=== PATIENT | female | born 1935 | race Caucasian/White ===

== ENCOUNTER 2020-05-08 06:21 | Inpatient (IN) | payer MEDICARE, OTHER ==
[2020-05-08] MEDS ORDERED: SODIUM CHLORIDE 0.9% 1,000 ML IV STA ×2 (06:42→07:06)
[2020-05-08] MEDS ORDERED: ONDANSETRON 4 MG/2 ML VIAL IVP STA (06:42)
--- NOTE | 2020-05-08 06:45 | ED Physician Documentation ---
PD HPI NVD - Stated complaint Stated Complaint: DEHYDRATION - Chief complaint Chief Complaint: Abd Pain - History obtained from History obtained from: Patient, EMS - History of Present Illness Timing - onset: How many weeks ago (She states she has had several weeks of poor oral intake due to easy satiety that has worsened in the last week. She claims only small bites of food and just little bits of fluid in her stomach feels full. No nausea or vomiting.Typically with loose stool secondary to carcinoid tumor. More firmer.) Timing - duration: Weeks Timing - details: Gradual onset, Still present Associated symptoms: Loss of appetite (due to easy fullness with PO intake.). No: Fever, Abdominal pain, Chest pain, Hematemesis Contributing factors: No: Sick contact, Bad food, Travel Improved by: No: BM Worsened by: Eating Similar symptoms before: No diagnosis (She did see her provider at [facility] a couple of weeks ago with the symptoms and their plan was to get a CT of the abdomen outpatient. She is having worse symptoms of fullness and easy satiety and now feeling dehydrated) Recently seen: Clinic ([facility] about 1-1/2 weeks ago for her chronic carcinoid tumor.) Review of Systems Constitutional: denies: Fever, Chills Nose: denies: Rhinorrhea / runny nose, Congestion Throat: denies: Sore throat Cardiac: denies: Chest pain / pressure, Pedal edema Respiratory: denies: Cough GI: denies: Abdominal Pain, Nausea (not nausea per se, but just easy satiety and feeling bloated.), Vomiting, Diarrhea : denies: Dysuria, Frequency Neurologic: reports: Generalized weakness, Near syncope (felt lightheaded with activity the past couple of days.). 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 HEENT: Tonsil/Adenoidectomy - Present Medications Home Medications: Ambulatory Orders Medication Instructions Recorded Confirmed Latanoprost 0.005% Ophth Drops 1 drops OPTH QPM 03/06/13 03/06/13 [Xalatan] Lisinopril [Prinivil] 5 mg PO BID 03/06/13 03/06/13 Timolol 0.5% Ophth Drops [Timoptic] 1 drops OPTH DAILY 03/06/13 03/06/13 - Allergies Allergies/Adverse Reactions: Allergies Allergy/AdvReac Type Severity Reaction Status Date / Time azithromycin [From Zithromax] Allergy Intermediate Emesis Verified 05/08/20 06:34 Sulfa (Sulfonamide AdvReac Severe Hives Verified 05/08/20 06:34 Antibiotics) - Social History Does the pt smoke?: No Smoking Status: Never smoker Does the pt drink ETOH?: No Does the pt have substance abuse?: No - Immunizations Immunizations are current?: Yes PD ED PE NORMAL - Vitals Vital signs reviewed: Yes - General General: Alert and oriented X 3, No acute distress. No: Well developed/nourished (frail and thin) - HEENT HEENT: Pharynx benign. No: Moist mucous membranes - Neck Neck: Supple, no meningeal sign, No adenopathy - Cardiac Cardiac: RRR, Other (1/6 systolic murmur left chest without radiation.) - Respiratory Respiratory: No respiratory distress, Clear bilaterally - Abdomen Abdomen: Soft, No organomegaly. No: Normal bowel sounds (increased bowel sounds generally. Mild distension without focal tenderness. ) - Female Female : Deferred - Rectal Rectal: Deferred - Back Back: No CVA TTP - Derm Derm: Normal color, Warm and dry - Extremities Extremities: No tenderness to palpate, Normal ROM s pain, No edema, No calf tend erness / cord - Neuro Neuro: Alert and oriented X 3, No motor deficit, Normal speech Results - Vitals Vitals: Vital Signs - 24 hr 05/08/20 05/08/20 06:31 06:56 Temperature 36.1 C L Heart Rate 59 L 71 Respiratory 17 16 Rate Blood Pressure 198/87 H 199/77 H O2 Saturation 98 99 Oxygen O2 Source Room air - Labs Labs: Laboratory Tests 05/08/20 05/08/20 06:40 06:40 WBC 15.0 H RBC 4.58 Hgb 12.3 Hct 38.1 MCV 83.2 MCH 26.9 L MCHC 32.3 RDW 14.0 Plt Count 204 MPV 11.7 H Neut # (Auto) 13.6 H Lymph # (Auto) 0.2 L [place] # (Auto) 1.1 H Eos # (Auto) 0.0 Baso # (Auto) 0.0 Absolute Nucleated RBC 0.00 Nucleated RBC % 0.0 Sodium 131 L Potassium 2.1 L* Chloride 80 L* Carbon Dioxide 39 H* Anion Gap 12.0 BUN 18 Creatinine 0.7 Estimated GFR (MDRD) 80 L Glucose 172 H Calcium 7.8 L Phosphorus 2.2 L Magnesium 1.8 Total Bilirubin 1.0 AST 39 ALT 28 Alkaline Phosphatase 120 Total Protein 6.2 L Albumin 3.0 L Globulin 3.2 Albumin/Globulin Ratio 0.9 L Lipase 22 PD MEDICAL DECISION MAKING - ED course Complexity details: considered differential (Easy satiety and poor oral intake subsequently with feeling of dehydration and lightheadedness and no weakness. We will give IV fluids and check electrolytes and blood count as well as thyroid. History of carcinoid tumor so can get a CT scan to ensure no signs of obstruction pattern or gastric out), d/w patient ED course: Care is given over to Dr. Cohen at change of shift who will follow-up on the care and lab results and CT scan. Departure - Departure Clinical Impression: Dehydration, Early satiety, Decreased oral intake, Electrolyte and fluid disorder
[2020-05-08 06:51] LABS: BASOPHILS % (AUTO) 0.2 %; HGB - HEMOGLOBIN 12.3 g/dL (12.0-16.0); LYMPHOCYTES # (AUTO) 0.2 10^3/uL (1.5-3.5); LYMPHOCYTES % (AUTO) 1.3 %; MEAN CORPUSCULAR HEMOGLOBIN 26.9 pg (27.0-31.0); MEAN CORPUSCULAR HGB CONC 32.3 g/dL (32.0-36.0); MEAN CORPUSCULAR VOLUME 83.2 fL (81.0-99.0); MEAN PLATELET VOLUME 11.7 fL (7.9-10.8); MONOCYTES # (AUTO) 1.1 10^3/uL (0.0-1.0); MONOCYTES % (AUTO) 7.1 %; NEUTROPHILS # (AUTO) 13.6 10^3/uL (1.5-6.6); NEUTROPHILS % (AUTO) 90.7 %; PLT - PLATELET COUNT 204 10^3/uL (130-450); RED BLOOD COUNT 4.58 10^6/uL (4.20-5.40)
[2020-05-08 07:02] LABS: ALBUMIN/GLOBULIN RATIO 0.9 (1.0-2.2); CALCIUM 7.8 mg/dL (8.5-10.3); CREATININE 0.7 mg/dL (0.4-1.0); MAGNESIUM 1.8 mg/dL (1.7-2.8); PHOSPHORUS 2.2 mg/dL (2.5-4.6); TOTAL PROTEIN 6.2 g/dL (6.7-8.2)
[2020-05-08] MEDS ORDERED: IOVERSOL 320 50 ML VIAL ONE (07:06)
[2020-05-08] MEDS ORDERED: POTASSIUM CHLOR 10 MEQ/100 ML 10 MEQ/100 ML BAG IV STA ×2 (07:06)
--- NOTE | 2020-05-08 07:53 | ED Physician Documentation ---
ED Addendum - Addendum Addendum: 05/08/20 07:[address] Che, briefly this is an 85-year-old woman with history of carcinoid who gets injections of long-acting octreotide monthly for same. She has chronic diarrhea and the pattern has not changed. More recently though she has a sensation of early satiety and just being full. It is not painful, no nausea, she just does not want to eat. She was seen and examined at bedside. She appears comfortable. She is quite thin. Labs notable for significant electrolyte abnormalities including hypokalemia, hypochloremia. CT pending. CT oral ordered with oral contrast to look for gastric outlet obstruction. She drank about 100 mL of the contrast but did not tolerate anymore. 05/08/20 08:43 CT reviewed with radiology, she has mesenteric mass and multifocal metastatic disease, possibly an osseous metastasis in the L1 vertebral body. Radiologist felt that this was consistent with metastatic carcinoid. I discussed the case by phone with her oncologist, Dr. Choco Pascual at the [facility] He understands the need to have extensive goals of care conversations with her, the patient vacillates whether she would want more aggressive treatment for the cancer itself. He agreed that she should be admitted here for her significant electrolyte abnormalities, and they will have someone from their team reach out to her after discharge and arrange for GI evaluation for potential EGD, potential stenting. 05/08/20 08:[address] Amado for observation. In the interim she did get a liter of saline wide open and then a maintenance rate as well as 2 potassium riders. Diagnoses: 1. Contraction alkalosis 2. Hypokalemia 3. Dehydration 4. Metastatic carcinoid 5. Probable gastric outlet obstruction Disposition: Place in observation; condition: Fair
[2020-05-08 07:58] LABS: BILIRUBIN,URINE NEGATIVE (NEGATIVE); GLUCOSE, URINE (UA) NEGATIVE (NEGATIVE); KETONES,URINE (UA) 15 mg/dL (NEGATIVE); LEUKOCYTE ESTERASE, URINE NEGATIVE (NEGATIVE); NITRITE,URINE NEGATIVE (NEGATIVE); OCCULT BLOOD,URINE SMALL (NEGATIVE); PH,URINE 6.5 PH (5.0-7.5); PROTEIN,URINE 100 mg/dL (NEGATIVE); UROBILINOGEN,URINE 0.2 (NORMAL) E.U./dL (NORMAL)
[2020-05-08 08:00] LABS: CLARITY,URINE CLEAR (CLEAR)
[2020-05-08 08:12] LABS: BACTERIA,URINE Few /HPF (None Seen); RBC,URINE 0-5 /HPF (0-5); SQUAMOUS EPITHELIAL CELL,UR FEW Squamous (<= Few)
--- NOTE | 2020-05-08 08:36 | CT Report ---
PROCEDURE: Abdomen/Pelvis WO INDICATIONS: UPPER ABD FULLNESS, EASY SATIETY, NAUSEA TECHNIQUE: Noncontrast 5 mm thick sections acquired from the diaphragms to the symphysis. 5 mm coronal and sagi ttal reformats were then performed. For radiation dose reduction, the following was used: automated exposure control, adjustment of mA and/or kV according to patient size. COMPARISON: None. FINDINGS: Image quality: Excellent. ABDOMEN: Lung bases: Small bilateral pleural effusions with atelectasis and basilar airspace opacities. Solid organs: There are numerous hypodense liver masses (at least 20), highly suspicious for metastat ic disease. The largest in the inferior right hepatic lobe measures approximately 7.4 cm. Normal size of the spleen. Left adrenal gland mass measuring approximately 2 cm (evaluation limited by the lack of IV contrast. There may be a right adrenal gland masses well, versus adrenal form thickening. Peritoneum and bowel: Partially calcified mesenteric mass measuring approximately 4.7 cm (series 3 im age 38). Extensive mesenteric lymphadenopathy. Numerous small bowel loops are mildly dilated represen ting probable partial obstruction. Small volume fluid throughout the abdomen and pelvis. Sigmoid dive rticulosis without findings of diverticulitis. Nodes and vessels: Extensive mesenteric and retroperitoneal lymphadenopathy. PELVIS: Genitourinary: Bladder wall thickness is normal. The uterus and ovaries appear surgically absent. Miscellaneous: No threshold enlarged pelvic or inguinal lymph node. No inguinal hernia. Femoral bob ry atherosclerosis. Bones: Sclerotic lesion in the inferior L1 vertebral body, nonspecific but potentially representing m etastatic disease. Vertebral body heights maintained. Diffuse demineralization of the vertebral darwin s. IMPRESSION: Partially calcified central mesenteric mass which would be consistent with the provided history of ca rcinoid. Multifocal metastatic disease, most notably with extensive mesenteric and retroperitoneal lymphadenop athy along with numerous hypodense liver masses. Possible osseous metastasis in the inferior L1 vertebral body. Findings were discussed with Dr. Cohen at 8:30 AM on 05/08/2020. Reviewed by: Frankie Verduzco MD on 05/08/2020 8:35 AM PDT Approved by: Frankie Verduzco MD on 05/08/2020 8:35 AM PDT Station ID: [id number]
[2020-05-08] MEDS ORDERED: POTASSIUM CHLORIDE 20 MEQ TABLET PO STA (08:54)
--- NOTE | 2020-05-08 08:55 | HISTORY & PHYSICAL EXAMINATION ---
Chief Complaint - Chief Complaint Chief Complaint: Lack of sleep and poor appetite. History of Present Illness - Admitted From Admitted From:: Home - History Obtained From Records Reviewed: Yes History obtained from: Patient, ER Physician, EMR - History of Present Illness HPI Comment/Other: This is a very pleasant 85-year-old female with a past medical history significant for metastatic carcinoid tumor, hypertension, glaucoma who presents today complaining of lack of sleep and poor appetite over the past few days. She states she was diagnosed with carcinoid tumor about 5 years ago and has been on monthly octreotide since then. She saw her [facility]ologist [facility] due to her lack of appetite and sleep. She received her monthly dose of octreotide yesterday. She states they were going to work-up her symptoms with a CT and a likely referral to GI. She states overnight her symptoms progressed and so she sought medical attention today. She states that the past few days she has not slept well and she has early satiety after just a few bites. She states she ate half a bowl of soup yesterday and she became quite full. She reports occasional nausea but no vomiting. She denies any abdominal pain. She states she normally has diarrhea from a carcinoid tumor but she has had intermittent constipation over the past few days. Her last bowel movement was yesterday. She is passing gas. She reports no abdominal distention. She reports no fevers, chills, chest pain, dyspnea. She does report feeling thirsty and she feels like she is dehydrated. She also has early satiety from drinking liquids. She reports no dizziness or lightheadedness. In the emergency department, she is found to be afebrile with temperature of 36.1 C. Her heart rate was 59. Her blood pressure was 198/87. She was not tachypneic and saturating well on room air. Labs were significant for a white count of 15 with a left shift. Her sodium was 131, potassium 2.1, chloride 80, bicarbonate 39. He underwent a CT of the abdomen pelvis with oral contrast she reported an allergy to IV contrast. The CT showed the metastatic carcinoid tumor. These findings were discussed with her oncologist by the emergency department physician who recommended admission to optimize her electrolytes and that they will follow-up with her in clinic and likely refer her to GI for possible gastric outlet obstruction as she may need stenting. Given the above findings, medicine was consulted for admission. I did discuss goals of care the patient and she would like to be a DNR. 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 She has no siblings. Living arrangement: At home Living Situation: Alone Social History Notes: She lives at home alone. She is a non-smoker and has never smoked. She denies any alcohol use. [place] the [place] years after moving from [place], [place]. - POLST Patient has POLST: No Meds/Allgy - Home Medications Home Medications: Ambulatory Orders Medication Instructions Recorded Confirmed Latanoprost 0.005% Ophth Drops 1 drops OPTH QPM 03/06/13 05/08/20 [Xalatan] Lisinopril [Prinivil] 5 mg PO DAILY 03/06/13 05/08/20 Timolol 0.5% Ophth Drops [Timoptic] 1 drops OPTH BID 03/06/13 05/08/20 Cholecalciferol (Vitamin D3) 2,000 unit PO DAILY 05/08/20 05/08/20 [Vitamin D3] Metoprolol Tartrate 25 mg ORAL BID 05/08/20 05/08/20 Octreotide Acetate,Mi-Spheres 30 mg IM ONCE 05/08/20 05/08/20 [Sandostatin [place]] - Allergies Allergies/Adverse Reactions: Allergies Allergy/AdvReac Type Severity Reaction Status Date / Time azithromycin [From Zithromax] Allergy Intermediate Emesis Verified 05/08/20 07:20 Sulfa (Sulfonamide AdvReac Severe Hives Verified 05/08/20 07:20 Antibiotics) Review of Systems - Constitutional Constitutional: reports: Fatigue, Poor appetite, Weight loss. denies: Fever, Chills, Weakness - Eyes Eyes: denies: Blurred vision - Ears, Nose & Throat Ears, Nose & Throat: denies: Nasal discharge, Nasal congestion, Sore throat - Cardiovascular Cariovascular: denies: Chest pain, Edema, Lightheadedness, Exertional dyspnea, Decr. exercise tolerance - Respiratory Respiratory: denies: Cough, SOB at rest, SOB with exertion - Gastrointestinal Gastrointestinal: reports: Nausea, Poor appetite. denies: Abdominal pain, Abdominal distention, Constipation, Diarrhea, Vomiting, Bloating - Genitourinary Genitourinary: denies: Dysuria, Frequency, Urgency, Hematuria - Musculoskeletal Musculoskeletal: denies: Muscle pain, Muscle aches, Limited range of motion, Muscle weakness - Integumentary Integumentary: denies: Rash - Neurological Neurological: denies: General weakness, Focal weakness, Dizziness, Numbness, Memory problems - All Other Systems All Other Systems: reports: Reviewed and negative Prior Level of Functionality: She is independent with her ADLs. Exam - Vital Signs Reviewed Vital Signs: Yes Vital Signs: Vital Signs x48h Temp Pulse Resp BP Pulse Ox 05/08/20 08:34 70 13 198/85 H 98 05/08/20 06:56 71 16 199/77 H 99 05/08/20 06:31 36.1 C L 59 L 17 198/87 H 98 - Physical Exam General Appearance: positive: Alert, Other (She appears ill and frail.) Eyes Bilateral: positive: Normal inspection, Conjunctivae nml ENT: positive: ENT inspection nml, Dry mucous membranes. negative: No signs of dehydration Neck: positive: Nml inspection Respiratory: positive: No respiratory distress. negative: Wheezes, Rales Cardiovascular: positive: Regular rate & rhythm, No murmur. negative: Tach ycardia, Bradycardia, Systolic murmur Abdomen: positive: Non-tender, Nml bowel sounds, No distention. negative: Tenderness, Guarding, Rebound Skin: positive: Warm, Dry Extremities: positive: Full ROM, No pedal edema Neurologic/Psychiatric: positive: Oriented x3, Motor nml. negative: Disoriented to person, Disoriented to place, Disoriented to time Conclusion/Plan - Problem List (1) Metabolic alkalosis Conclusion/Plan: This is likely multifactorial and exacerbated by the hypokalemia as well. She reports no diarrhea or vomiting so do not suspect gastric losses. Her bicarbonate is elevated at 39 and her chloride is 80. Venous blood gas revealed a pH of 7.498. Suspect she will be responsive to saline and so we will continue her on IV saline at this time. We will repeat a BMP this afternoon to ensure her bicarbonate is decreasing. (2) Hypokalemia Conclusion/Plan: Her potassium is quite low at 2.1. This is likely exacerbated by the metabolic alkalosis. We will replace this intravenously and orally and recheck again in the afternoon. She will likely need potassium supplementation on discharge. We will monitor her on telemetry. (3) Metastatic carcinoid tumor Conclusion/Plan: [facility] and this is confirmed by CT of the abdomen pelvis today. She did receive her monthly dose of octreotide yesterday. She will be following up with [facility] on discharge once her electrolytes are optimized. Place her on a liquid diet as tolerated. (4) Hyponatremia Conclusion/Plan: This is likely hypovolemic hyponatremia. Her sodium is decreased at 131. We will continue her on IV saline and recheck her sodium this afternoon and in the morning. (5) Early satiety Conclusion/Plan: This is likely secondary to her metastatic carcinoid tumor which may potentially have gastric outlet obstruction. We will place her on a liquid diet with small frequent meals as tolerated. She will be following up with the [facility] on discharge and referral will be made to gastroenterology for evaluation as she may benefit from endoscopy and possible stent placement if this is truly believed to be secondary to gastric outlet obstruction. Zofran IV as needed for nausea. (6) Hypertension Conclusion/Plan: She reports a history of labile blood pressures stating that she was hypotensive and so 1 of her antihypertensives was discontinued but then it was resumed a week later she became quite hypertensive again. She currently has systolics in the 190s but she is asymptomatic. We will resume her home metoprolol and lisinopril at this time. We will up titrate these as need be and consider adding a third antihypertensive if necessary. - Lab Results Lab results reviewed: Yes Fish Bones: 05/08/20 09:15 05/08/20 09:15 - Diagnostic Imaging Results Diagnostic Imaging Results: positive: Final report reviewed Core Measures - Anticipated LOS I expect patient to be DC'd or transferred within 96 hours.: Yes - Issues Hospital Issues and Management Plan: 85-year-old female with metastatic carcinoid presents with early satiety found to have severe electrolyte derangements. We will place her in observation for metabolic alkalosis and hypokalemia. We will treat her with IV fluids and potassium replacement. - DVT/VTE - Prophylaxis VTE/DVT Device ordered at admit?: Yes VTE/DVT Prophylaxis med ordered at admit?: Yes
[2020-05-08 09:20] LABS: BASOPHILS % (AUTO) 0.1 %; HGB - HEMOGLOBIN 11.1 g/dL (12.0-16.0); LYMPHOCYTES # (AUTO) 0.2 10^3/uL (1.5-3.5); LYMPHOCYTES % (AUTO) 1.4 %; MEAN CORPUSCULAR HEMOGLOBIN 27.3 pg (27.0-31.0); MEAN CORPUSCULAR HGB CONC 31.9 g/dL (32.0-36.0); MEAN CORPUSCULAR VOLUME 85.5 fL (81.0-99.0); MEAN PLATELET VOLUME 11.9 fL (7.9-10.8); MONOCYTES # (AUTO) 1.1 10^3/uL (0.0-1.0); MONOCYTES % (AUTO) 7.1 %; NEUTROPHILS # (AUTO) 14.1 10^3/uL (1.5-6.6); NEUTROPHILS % (AUTO) 90.8 %; PLT - PLATELET COUNT 186 10^3/uL (130-450); RED BLOOD COUNT 4.07 10^6/uL (4.20-5.40); RED CELL DISTRIBUTION WIDTH 13.9 % (12.0-15.0); WHITE BLOOD COUNT 15.5 x10^3/uL (4.8-10.8)
[2020-05-08 09:22] LABS: VBG BASE EXCESS 11.9 mmol/L (-2 - +2); VBG PCO2 48.3 mmHg (41-51); VBG PH 7.498 (7.31-7.41); VBG TOTAL CO2 38.1 mmol/L (24-29)
[2020-05-08 09:33] LABS: CALCIUM 7.1 mg/dL (8.5-10.3); CREATININE 0.6 mg/dL (0.4-1.0)
[2020-05-08] MEDS ORDERED: lisinopriL 5 MG TABLET PO SCH (10:00)
[2020-05-08] MEDS: SODIUM CHLORIDE 0.9% 1,000 ML IV SCH ×2 (10:30→21:14)
[2020-05-08] MEDS ORDERED: CALCIUM GLUCONATE 1,000 MG in SODIUM CHLORIDE 0.9% 50 ML IV ONE (11:38)
[2020-05-08] MEDS: HEPARIN 5,000 UNIT/ML VIAL SUBQ SCH ×2 (13:06→21:06)
[2020-05-08] MEDS: SODIUM CHLORIDE FLUSH 0.9% 10 ML SYRINGE IVP SCH ×2 (13:12→17:42)
[2020-05-08] MEDS: METOPROLOL TARTRATE 25 MG TABLET PO SCH ×3 (13:14→21:03)
[2020-05-08] MEDS: POTASSIUM CHLOR 10 MEQ/100 ML 10 MEQ/100 ML BAG IV SCH ×6 (13:31→22:57)
--- NOTE | 2020-05-08 15:53 | PHARMACY PROGRESS NOTE ---
- Best Possible Medication History Admit Date and Time: 05/08/20 0851 Processed by: Pharmacy Medication History completed: Yes Patient Interview: Completed Secondary Source(s): Pharmacy records, Insurance records ([employer] INTERVIEWED BY TIN POT OPERATOR. PATIENT ABLE TO CONFIRM HOME MEDICATIONS. NURSING ALSO INVOLVED IN MED REC) As the person ultimately responsible for medication therapy, providers are able to order a medication from an existing home medication list in [facility] via the "Reconcile Routine" prior to Confirmation of that medication by wan support specialist. Such practice is discouraged except when the physician, in their clinical judgment, deems that a medical need exists for a medication without regard to previous use.
[2020-05-08] MEDS: hydrALAZINE INJ 20 MG/ML VIAL IVP PRN (17:21)
[2020-05-08] MEDS: ONDANSETRON 4 MG/2 ML VIAL IVP PRN (18:10)
[2020-05-08 18:13] LABS: CALCIUM 7.8 mg/dL (8.5-10.3); CREATININE 0.6 mg/dL (0.4-1.0)
[2020-05-08] MEDS ORDERED: CARBOXYMETHYLCELLULOSE OPHTH DROPS EACHEYE PRN (18:16)
[2020-05-08] MEDS ORDERED: POTASSIUM CHLORIDE 20 MEQ/15 ML UDC PO SCH (19:00)
[2020-05-08] MEDS ORDERED: MORPHINE 2 MG/ML CARPUJECT IVP PRN (19:33)
[2020-05-09] MEDS: hydrALAZINE INJ 20 MG/ML VIAL IVP PRN ×2 (00:18→05:54)
[2020-05-09] MEDS: ACETAMINOPHEN 325 MG TABLET PO PRN ×3 (01:47→21:12)
[2020-05-09] MEDS: SODIUM CHLORIDE FLUSH 0.9% 10 ML SYRINGE IVP SCH ×3 (03:05→17:52)
[2020-05-09] MEDS: PROCHLORPERAZINE 10 MG/2 ML VIAL IVP PRN (03:48)
[2020-05-09] MEDS: SODIUM CHLORIDE 0.9% 1,000 ML IV SCH (03:48)
[2020-05-09 05:47] LABS: BASOPHILS % (AUTO) 0.2 %; HGB - HEMOGLOBIN 12.1 g/dL (12.0-16.0); LYMPHOCYTES # (AUTO) 0.2 10^3/uL (1.5-3.5); MEAN CORPUSCULAR HEMOGLOBIN 26.8 pg (27.0-31.0); MEAN CORPUSCULAR VOLUME 83.8 fL (81.0-99.0); MEAN PLATELET VOLUME 12.4 fL (7.9-10.8); MONOCYTES # (AUTO) 1.1 10^3/uL (0.0-1.0); MONOCYTES % (AUTO) 6.5 %; NEUTROPHILS # (AUTO) 15.5 10^3/uL (1.5-6.6); NEUTROPHILS % (AUTO) 91.6 %; PLT - PLATELET COUNT 192 10^3/uL (130-450); RED BLOOD COUNT 4.51 10^6/uL (4.20-5.40); RED CELL DISTRIBUTION WIDTH 14.3 % (12.0-15.0); WHITE BLOOD COUNT 16.9 x10^3/uL (4.8-10.8)
[2020-05-09 05:58] LABS: CREATININE 0.7 mg/dL (0.4-1.0); MAGNESIUM 1.7 mg/dL (1.7-2.8)
[2020-05-09] MEDS: PANTOPRAZOLE 40 MG TABLET PO SCH (06:01)
[2020-05-09] MEDS ORDERED: POTASSIUM PHOSPHATE 15 MMOL in SODIUM CHLORIDE 0.9% 250 ML IV ONE (07:27)
[2020-05-09] MEDS ORDERED: POTASSIUM CHLORIDE 20 MEQ/15 ML UDC PO SCH (08:00)
--- NOTE | 2020-05-09 08:35 | XRAY Report ---
PROCEDURE: Chest 1 View X-Ray INDICATIONS: Cough. Leukocytosis. TECHNIQUE: One view of the chest was acquired. COMPARISON: CT abdomen and pelvis dated 05/08/2020 FINDINGS: Surgical changes and devices: None. Lungs and pleura: Small bilateral pleural effusions and minimal bibasilar atelectasis. Lungs are sona r. Mediastinum: Mediastinal contours appear normal. Heart size is normal. Small hiatal hernia. Bones and chest wall: No suspicious bony lesions. Multiple nonhealed right rib fractures, involving the right fourth, fifth, and sixth posterior lateral ribs. These are likely subacute. Overlying soft tissues appear unremarkable. IMPRESSION: 1. Small bilateral pleural effusions and minimal bibasilar atelectasis. 2. 3 contiguous right rib fractures are likely subacute. 3. Small hiatal hernia. Reviewed by: Thompson Mckinney MD on 05/09/2020 8:34 AM PDT Approved by: Thompson Mckinney MD on 05/09/2020 8:34 AM PDT Station ID: [id number]
[2020-05-09] MEDS: DORZOLAMIDE/TIMOLOL OPHTH DROPS EACHEYE SCH ×2 (08:37→21:15)
[2020-05-09] MEDS: lisinopriL 5 MG TABLET PO SCH (08:40)
[2020-05-09] MEDS: METOPROLOL TARTRATE 25 MG TABLET PO SCH ×2 (08:40→21:12)
[2020-05-09] MEDS: amLODIPine 5 MG TABLET PO SCH (08:40)
[2020-05-09] MEDS: HEPARIN 5,000 UNIT/ML VIAL SUBQ SCH ×2 (08:41→21:13)
[2020-05-09 12:47] LABS: HEMOGLOBIN A1c% 6.8 % (4.27-6.07)
--- NOTE | 2020-05-09 13:22 | PROVIDER PROGRESS NOTE ---
Subjective - Prog Note Date Prog Note Date: 05/09/20 - Subjective Subjective: She reports feeling quite tired today but that she was able to finally get a bit of sleep. She feels very weak and fatigued overall. She also feels dizzy and lightheaded today. She reports a little bit of diarrhea today. States abdominal pain is controlled. She is tolerating a clear liquid diet but does have some nausea. She does not want to advance her diet. Current Medications - Current Medications Current Medications: Active Medications Acetaminophen (Tylenol) 650 mg PO Q4HR PRN PRN Reason: Pain 1 to 4 Last Admin: 05/09/20 06:02 Dose: 650 mg Documented by: Amlodipine Besylate (Norvasc) 5 mg PO DAILY [facility] Last Admin: 05/09/20 08:40 Dose: 5 mg Documented by: Carboxymethylcellulose (Refresh 1% Ophth Drops) 1 drops EACHEYE PRN PRN PRN Reason: Dry Eye Dorzolamide/Timolol (Cosopt) 1 drops EACHEYE BID [facility] Last Admin: 05/09/20 08:37 Dose: 1 drops Documented by: Heparin Sodium (Porcine) () 5,000 unit SUBQ BID [facility] Last Admin: 05/09/20 08:41 Dose: 5,000 unit Documented by: Hydralazine HCl (Apresoline Inj) 10 mg IVP Q4HR PRN PRN Reason: NEEDED PER PROVIDER ORDERS Last Admin: 05/09/20 05:54 Dose: 10 mg Documented by: Latanoprost (Xalatan Ophth Drops) 1 drops EACHEYE QPM [facility] Lisinopril (Zestril) 10 mg PO DAILY [facility] Last Admin: 05/09/20 08:40 Dose: 10 mg Documented by: Metoprolol Tartrate (Lopressor) 25 mg PO BID [facility] Last Admin: 05/09/20 08:40 Dose: 25 mg Documented by: Morphine Sulfate (Morphine (Carpuject)) 2 mg IVP Q2HR PRN PRN Reason: PAIN Ondansetron HCl (Zofran Inj) 4 mg IVP Q6HR PRN PRN Reason: Nausea / Vomiting Last Admin: 05/08/20 18:10 Dose: 4 mg Documented by: Pantoprazole Sodium (Protonix) 40 mg PO QDAC [facility] Last Admin: 09/03/20 06:01 Dose: 40 mg Documented by: Potassium Chloride () 20 meq PO DAILYWM [facility] Last Admin: 05/09/20 08:41 Dose: 20 meq Documented by: Prochlorperazine Edisylate (Compazine Inj) 10 mg IVP Q6HR PRN PRN Reason: Nausea / Vomiting Last Admin: 05/09/20 03:48 Dose: 10 mg Documented by: Sodium Chloride (Normal Saline Flush 0.9%) 10 ml IVP PRN PRN PRN Reason: NEEDED PER PROVIDER ORDERS Sodium Chloride (Normal Saline Flush 0.9%) 10 ml IVP 0100,0900,1700 [facility] Last Admin: 05/09/20 08:40 Dose: Not Given Documented by: Latanoprost 0.005% Ophth Drops [Xalatan] 1 drops OPTH QPM 03/06/13 Lisinopril [Prinivil] 5 mg PO DAILY 03/06/13 Cholecalciferol (Vitamin D3) [Vitamin D3] 2,000 unit PO DAILY 05/08/20 Dorzolamide HCl/Timolol Maleat [Dorzolamide-Timolol Eye Drops] 1 drops EACHEYE BID 05/08/20 Ibuprofen [Ibu-200] 200 mg PO Q6H PRN 05/08/20 Loperamide [Imodium] 2 mg PO PRN PRN 05/08/20 Metoprolol Tartrate 25 mg ORAL BID 05/08/20 Octreotide Acetate,Mi-Spheres [Sandostatin Lar Depot] 30 mg IM ONCE 05/08/20 Objective - Vital Signs/Intake & Output Reviewed Vital Signs: Yes Vital Signs: Vital Signs x48h Temp Pulse Pulse Resp BP BP Pulse Ox 05/09/20 10:38 37 C 78 16 95 05/09/20 07:40 37 C 80 16 167/69 H 95 05/09/20 06:57 37.0 C 80 16 167/68 H 93 05/09/20 06:45 80 163/69 H 05/09/20 06:30 80 163/70 H 05/09/20 06:24 163/70 H 05/09/20 06:15 84 157/67 H 05/09/20 06:10 80 161/69 H 05/09/20 06:05 81 170/65 H 05/09/20 06:00 36.9 C 75 187/69 H 05/09/20 05:54 189/76 H Intake & Output: Intake & Output 05/06/20 05/07/20 05/08/20 05/09/20 23:59 23:59 23:59 23:59 Intake Total 4160 1471 Output Total 585 325 Balance 3575 1146 - Objective General Appearance: positive: Alert, Lethargic, Other (Appears quite fatigued.) Eyes Bilateral: positive: Normal inspection, Conjunctivae nml ENT: positive: ENT inspection nml, Dry mucous membranes. negative: No signs of dehydration Neck: positive: Nml inspection Respiratory: positive: No respiratory distress, Breath sounds nml. negative: Wheezes, Rales, Rhonchi Cardiovascular: positive: Regular rate & rhythm, Systolic murmur. negative: Tachycardia, Bradycardia Abdomen: positive: Nml bowel sounds, Tenderness (Mild epigastric tenderness.). negative: Guarding, Rebound Skin: positive: Warm, Dry Extremities: positive: Full ROM, Pedal edema (+1 pitting edema in her bilateral feet.) Neurologic/Psychiatric: positive: Oriented x3, Motor nml. negative: Disoriented to person, Disoriented to place, Disoriented to time - Lab Results Fish Bones: 05/09/20 05:26 05/09/20 05:26 Other Labs: Lab Results x24hrs 05/09/20 05/09/20 05/08/20 Range/Units 05:26 05:26 17:55 WBC 16.9 H (4.8-10.8) x10^3/uL RBC 4.51 (4.20-5.40) 10^6/uL Hgb 12.1 (12.0-16.0) g/dL Hct 37.8 (37.0-47.0) % MCV 83.8 (81.0-99.0) fL MCH 26.8 L (27.0-31.0) pg MCHC 32.0 (32.0-36.0) g/dL RDW 14.3 (12.0-15.0) % Plt Count 192 (130-450) 10^3/uL MPV 12.4 H (7.9-10.8) fL Neut # (Auto) 15.5 H (1.5-6.6) 10^3/uL Lymph # (Auto) 0.2 L (1.5-3.5) 10^3/uL [place] # (Auto) 1.1 H (0.0-1.0) 10^3/uL Eos # (Auto) 0.0 (0.0-0.7) 10^3/uL Baso # (Auto) 0.0 (0.0-0.1) 10^3/uL Absolute Nucleated RBC 0.00 x10^3/uL Nucleated RBC % 0.0 /100WBC Sodium 129 L 130 L (135-145) mmol/L Potassium 3.1 L 2.2 L* (3.5-5.0) mmol/L Chloride 88 L 81 L (101-111) mmol/L Carbon Dioxide 29 33 H (21-32) mmol/L Anion Gap 12.0 16.0 H (6-13) BUN 22 H 14 (6-20) mg/dL Creatinine 0.7 0.6 (0.4-1.0) mg/dL Estimated GFR (MDRD) 80 L 95 (>89) Glucose 183 H 162 H (70-100) mg/dL Calcium 8.0 L 7.8 L (8.5-10.3) mg/dL Phosphorus 2.0 L (2.5-4.6) mg/dL Magnesium 1.7 (1.7-2.8) mg/dL ABX Reporting Has patient been on IV antibiotics over the past 48 hours?: No Assessment/Plan - Problem List (1) Metabolic alkalosis Impression: She has responded well to IV saline and her bicarbonate has decreased to 29 today. Her hypokalemia has also improved. This was likely contraction alkalosis and she may benefit from outpatient IV fluids as I am concerned she will become quite dehydrated once again given her poor oral intake and metastatic carcinoid tumor. (2) Leukocytosis Impression: Her white count continues to increase and today it is nearly 17,000. There is also a left shift. There has been no obvious source of infection and she is afebrile. Her urine is unremarkable and chest x-ray obtained today is not suggestive of pneumonia. Suspect this may be reactive in nature. We will continue to hold off on antibiotics and will recheck a CBC in the morning. (3) Early satiety Impression: This persists and suspect secondary to her metastatic carcinoid tumor. I did review the CT the abdomen pelvis with radiology today and although there is no obvious signs of gastric outlet obstruction, she does have multiple abnormal lymph nodes and the mass near the secretory stomach and duodenum which could potentially cause some obstruction. I also spoke with her oncologist today and he will see her in clinic in about 1 week and based off of CT scan findings will consider a referral to GI for possible endoscopy to see if there is any intervention that may be performed to help with her early satiety. In the mean time, we will continue with a clear liquid diet as tolerated. She is at risk for dehydration given her poor oral intake and she will likely benefit from outpatient IV fluids. (4) Hypertension Impression: Her blood pressure has remained quite elevated and she is required multiple doses of IV hydralazine. Lisinopril has been increased to 10 mg daily and she was continued on her metoprolol. We also added amlodipine 5 mg. She reported feeling dizzy and lightheaded and orthostatics were borderline as her systolic dropped by 20 mmHg with standing. Given this, we will hold off on uptitrating her current antihypertensives. We will recheck orthostatics again in the afternoon and if they are positive we will need to cut back on her antihypertensives. We will hold off on further IV fluids at this time given her lower extremity edema but if orthostatics are positive we will hydrate her. Given her borderline orthostasis and her feeling dizzy and lightheaded as well as quite fatigued, we will keep her hospitalized for 1 more night to adjust her antihypertensives and the fact that she may need IV fluids. (5) Hypokalemia Impression: This has improved. Potassium is 3.1 today. We will continue with oral potas sium supplementation and monitor her potassium closely. (6) Metastatic carcinoid tumor Impression: She follows with [facility] and CT abdomen pelvis confirmed metastatic carcinoid tumor. I spoke with her oncologist today, Dr. Morris who will see her in clinic after discharge. He will discuss potential treatment options with her at that time and discuss overall prognosis and wishes as she may potentially be a candidate for hospice if the patient chooses not to pursue treatment. This disease process is unfortunately the likely cause of her early satiety and dec line over the past few weeks. (7) Type 2 diabetes mellitus Impression: Her blood glucose has been elevated and A1c was checked today which is elevated at 6.8%. We will place her on sliding scale. Will discuss with the patient regarding medications as we could attempt to control her blood sugars with just diet alone. (8) Hyponatremia Impression: Her sodium is actually decreased little bit and is now 129. This was initially thought to be hypovolemic hyponatremia but she has not responded well to IV fluids. She does have a little bit of lower extremity edema. We will not send out for urine osmolalities as unfortunately send out lab and would not provide us with any information. At this time, we will continue to monitor her sodium. We will hold off on further IV fluids for the time being unless her orthostatics are positive.
[2020-05-09] MEDS: INSULIN ASPART 300 UNIT/3 ML PEN SUBQ SCH ×2 (17:52→21:12)
[2020-05-09] MEDS: LATANOPROST 0.005% OPHTH DROPS EACHEYE SCH (21:16)
[2020-05-10] MEDS: PROCHLORPERAZINE 10 MG/2 ML VIAL IVP PRN (00:10)
[2020-05-10] MEDS: SODIUM CHLORIDE FLUSH 0.9% 10 ML SYRINGE IVP SCH ×3 (00:10→17:34)
[2020-05-10 05:47] LABS: BASOPHILS % (AUTO) 0.2 %; HGB - HEMOGLOBIN 12.1 g/dL (12.0-16.0); LYMPHOCYTES # (AUTO) 0.2 10^3/uL (1.5-3.5); LYMPHOCYTES % (AUTO) 0.8 %; MEAN CORPUSCULAR HEMOGLOBIN 26.5 pg (27.0-31.0); MEAN CORPUSCULAR HGB CONC 32.1 g/dL (32.0-36.0); MEAN CORPUSCULAR VOLUME 82.5 fL (81.0-99.0); MEAN PLATELET VOLUME 12.5 fL (7.9-10.8); MONOCYTES # (AUTO) 1.3 10^3/uL (0.0-1.0); MONOCYTES % (AUTO) 6.8 %; NEUTROPHILS # (AUTO) 17.1 10^3/uL (1.5-6.6); NEUTROPHILS % (AUTO) 91.4 %; PLT - PLATELET COUNT 189 10^3/uL (130-450); RED BLOOD COUNT 4.57 10^6/uL (4.20-5.40); RED CELL DISTRIBUTION WIDTH 14.6 % (12.0-15.0); WHITE BLOOD COUNT 18.7 x10^3/uL (4.8-10.8)
[2020-05-10 06:01] LABS: CALCIUM 8.3 mg/dL (8.5-10.3); CREATININE 0.9 mg/dL (0.4-1.0); MAGNESIUM 1.9 mg/dL (1.7-2.8); PHOSPHORUS 2.6 mg/dL (2.5-4.6)
[2020-05-10] MEDS: PANTOPRAZOLE 40 MG TABLET PO SCH (06:21)
[2020-05-10] MEDS: DORZOLAMIDE/TIMOLOL OPHTH DROPS EACHEYE SCH ×2 (06:35→20:02)
[2020-05-10] MEDS ORDERED: SODIUM CHLORIDE 0.9% 500 ML IV ONE (07:19)
[2020-05-10] MEDS: INSULIN ASPART 300 UNIT/3 ML PEN SUBQ SCH ×4 (08:54→21:02)
[2020-05-10] MEDS: POTASSIUM CHLOR 10 MEQ/100 ML 10 MEQ/100 ML BAG IV SCH ×2 (08:55→10:24)
[2020-05-10] MEDS: POTASSIUM CHLORIDE 20 MEQ/15 ML UDC PO SCH ×2 (09:02→20:59)
[2020-05-10] MEDS: METOPROLOL TARTRATE 25 MG TABLET PO SCH ×2 (09:03→21:00)
[2020-05-10] MEDS: amLODIPine 5 MG TABLET PO SCH (09:04)
[2020-05-10] MEDS: lisinopriL 5 MG TABLET PO SCH (09:04)
[2020-05-10] MEDS: HEPARIN 5,000 UNIT/ML VIAL SUBQ SCH ×2 (09:05→21:00)
--- NOTE | 2020-05-10 11:19 | PROVIDER PROGRESS NOTE ---
Subjective - Prog Note Date Prog Note Date: 05/10/20 - Subjective Subjective: She reports feeling a bit better today. Denies any dizziness or lightheadedness. She feels like her appetite has increased a little bit as well. Reports abdominal pain is controlled denies nausea. She was able to get a little sleep last night. She still feels weak and fatigued overall. Current Medications - Current Medications Current Medications: Active Medications Acetaminophen (Tylenol) 650 mg PO Q4HR PRN PRN Reason: Pain 1 to 4 Last Admin: 05/09/20 21:12 Dose: 650 mg Documented by: Amlodipine Besylate (Norvasc) 5 mg PO DAILY [facility] Last Admin: 05/10/20 09:04 Dose: 5 mg Documented by: Carboxymethylcellulose (Refresh 1% Ophth Drops) 1 drops EACHEYE PRN PRN PRN Reason: Dry Eye Dorzolamide/Timolol (Cosopt) 1 drops EACHEYE BID [facility] Last Admin: 05/10/20 06:35 Dose: 1 drops Documented by: Heparin Sodium (Porcine) () 5,000 unit SUBQ BID [facility] Last Admin: 05/10/20 09:05 Dose: 5,000 unit Documented by: Insulin Aspart (Novolog) 1 - 9 unit SUBQ 0800,1200,1700,2100 [facility]; Protocol Last Admin: 05/10/20 12:23 Dose: 1 unit Documented by: Latanoprost (Xalatan Ophth Drops) 1 drops EACHEYE QPM [facility] Last Admin: 05/09/20 21:16 Dose: 1 drops Documented by: Lisinopril (Zestril) 10 mg PO DAILY [facility] Last Admin: 05/10/20 09:04 Dose: 10 mg Documented by: Metoprolol Tartrate (Lopressor) 25 mg PO BID [facility] Last Admin: 05/10/20 09:03 Dose: 25 mg Documented by: Ondansetron HCl (Zofran Inj) 4 mg IVP Q6HR PRN PRN Reason: Nausea / Vomiting Last Admin: 05/08/20 18:10 Dose: 4 mg Documented by: Pantoprazole Sodium (Protonix) 40 mg PO QDAC [facility] Last Admin: 05/10/20 06:21 Dose: 40 mg Documented by: Potassium Chloride () 20 meq PO BID [facility] Last Admin: 05/10/20 09:02 Dose: 20 meq Documented by: Prochlorperazine Edisylate (Compazine Inj) 10 mg IVP Q6HR PRN PRN Reason: Nausea / Vomiting Last Admin: 05/10/20 00:10 Dose: 10 mg Documented by: Sodium Chloride (Normal Saline Flush 0.9%) 10 ml IVP PRN PRN PRN Reason: NEEDED PER PROVIDER ORDERS Sodium Chloride (Normal Saline Flush 0.9%) 10 ml IVP 0100,0900,1700 [facility] Last Admin: 05/10/20 09:01 Dose: 10 ml Documented by: Latanoprost 0.005% Ophth Drops [Xalatan] 1 drops OPTH QPM 03/06/13 Lisinopril [Prinivil] 5 mg PO DAILY 03/06/13 Cholecalciferol (Vitamin D3) [Vitamin D3] 2,000 unit PO DAILY 05/08/20 Dorzolamide HCl/Timolol Maleat [Dorzolamide-Timolol Eye Drops] 1 drops EACHEYE BID 05/08/20 Ibuprofen [Ibu-200] 200 mg PO Q6H PRN 05/08/20 Loperamide [Imodium] 2 mg PO PRN PRN 05/08/20 Metoprolol Tartrate 25 mg ORAL BID 05/08/20 Octreotide Acetate,Mi-Spheres [Sandostatin Lar Depot] 30 mg IM ONCE 05/08/20 Objective - Vital Signs/Intake & Output Reviewed Vital Signs: Yes Vital Signs: Vital Signs x48h Temp Pulse Resp BP Pulse Ox 05/10/20 07:38 36.9 C 81 20 156/73 H 93 05/10/20 05:00 36.9 C 95 16 155/75 H 93 Intake & Output: Intake & Output 05/07/20 05/08/20 05/09/20 05/10/20 23:59 23:59 23:59 23:59 Intake Total 4160 2076 800 Output Total 588 525 400 Balance 3575 1551 400 - Objective General Appearance: positive: No acute distress, Lethargic Eyes Bilateral: positive: Normal inspection, Conjunctivae nml ENT: positive: ENT inspection nml Neck: positive: Nml inspection Respiratory: positive: No respiratory distress. negative: Wheezes, Rales Cardiovascular: positive: Regular rate & rhythm. negative: Tachycardia, Systolic murmur Abdomen: positive: Non-tender, Nml bowel sounds. negative: No distention, Tenderness, Guarding, Rebound Skin: positive: Warm, Dry Extremities: positive: Pedal edema (Trace in bilateral feet) Neurologic/Psychiatric: positive: Oriented x3, Motor nml. negative: Disoriented to person, Disoriented to place, Disoriented to time - Lab Results Fish Bones: 05/10/20 05:31 05/10/20 05:31 Other Labs: Lab Results x24hrs 05/10/20 05/10/20 05/09/20 Range/Units 05:31 05:31 05:26 WBC 18.7 H (4.8-10.8) x10^3/uL RBC 4.57 (4.20-5.40) 10^6/uL Hgb 12.1 (12.0-16.0) g/dL Hct 37.7 (37.0-47.0) % MCV 82.5 (81.0-99.0) fL MCH 26.5 L (27.0-31.0) pg MCHC 32.1 (32.0-36.0) g/dL RDW 14.6 (12.0-15.0) % Plt Count 189 (130-450) 10^3/uL MPV 12.5 H (7.9-10.8) fL Neut # (Auto) 17.1 H (1.5-6.6) 10^3/uL Lymph # (Auto) 0.2 L (1.5-3.5) 10^3/uL [place] # (Auto) 1.3 H (0.0-1.0) 10^3/uL Eos # (Auto) 0.0 (0.0-0.7) 10^3/uL Baso # (Auto) 0.0 (0.0-0.1) 10^3/uL Absolute Nucleated RBC 0.00 x10^3/uL Nucleated RBC % 0.0 /100WBC Sodium 131 L (135-145) mmol/L Potassium 3.0 L (3.5-5.0) mmol/L Chloride 91 L (101-111) mmol/L Carbon Dioxide 27 (21-32) mmol/L Anion Gap 13.0 (6-13) BUN 36 H (6-20) mg/dL Creatinine 0.9 (0.4-1.0) mg/dL Estimated GFR (MDRD) 60 L (>89) Glucose 154 H (70-100) mg/dL Estimat Average Glucose 148 H (70-100) mg/dL Hemoglobin A1c % 6.8 H (4.27-6.07) % Calcium 8.3 L (8.5-10.3) mg/dL Phosphorus 2.6 (2.5-4.6) mg/dL Magnesium 1.9 (1.7-2.8) mg/dL Assessment/Plan - Problem List (1) Leukocytosis Impression: Her white count continues to rise and is nearly 19,000 with a left shift. There has been no obvious source of infection. Her chest x-ray is not suggestive of pneumonia and her urinalysis is unremarkable. She is also been afebrile. CT of the abdomen and pelvis admission without contrast did not reveal any obvious source of infection. Suspect this may be reactive in nature. She is overall improved but still appears fatigued and I am a little concerned about her rising white count. We will check blood cultures today and repeat a urinalysis. We will keep her hospitalized 1 more night to trend her white count further. If repeat cultures are unremarkable then we will likely discharge her tomorrow with outpatient follow-up. (2) Early satiety Impression: This is likely secondary to her carcinoid tumor. I reviewed the imaging with radiology and there is no obvious gastric outlet obstruction but there are multiple abnormal masses and lymph nodes surrounding the duodenum and stomach which could put her at risk for obstruction. Half that has improved but is still poor overall. She is at risk for dehydration once again and so we are working on setting up outpatient IV fluids for the patient on a weekly basis. She will be seeing her oncologist and a referral to GI will be considered if she may benefit from stenting if there is concern for gastric outlet obstruction. At this time, we will continue to encourage oral intake. We will start her on Remeron to help with her appetite and her poor sleep. (3) Hypertension Impression: Her blood pressure remains quite elevated with systolic in the 180s to 190s. Orthostatics have been negative despite increasing her lisinopril and adding amlodipine. We will increase her amlodipine to 10 mg today and continue with lisinopril and metoprolol. (4) Hypokalemia Impression: This is stable at 3.0. Will replace with IV potassium today and will increase her oral potassium to 20 mEq twice daily. She will need to be discharged on oral potassium. (5) Metastatic carcinoid tumor Impression: I the plan is for outpatient follow-up with her oncologist to discuss potential treatment options. She may ultimately pursue hospice but this will be discussed after she visits her oncologist. (6) Hyponatremia Impression: Stable. She has not improved with IV fluids. We will continue to monitor but her sodium is at baseline. (7) Type 2 diabetes mellitus Impression: Dilip this new diagnosis today. Her A1c is 6.8%. We discussed treatment options and we agreed that we will hold off on any pharmacologic agents at this time. We discussed a carb controlled diet but at the same time, she has poor oral intake overall and we agreed that at this point in her life, the cancer is the bigger issue rather than the diabetes and so I have asked her to eat whatever she would like. (8) Metabolic alkalosis Impression: This has resolved. Her bicarbonate is now within normal limits.
[2020-05-10] MEDS ORDERED: amLODIPine 5 MG TABLET PO STA (13:30)
--- NOTE | 2020-05-10 18:16 | ADVANCE CARE PLANNING NOTE ---
Advance Care Planning - Planning Encounter Date: 05/10/20 Time: 11:30 Purpose: To clarify goals of care. Parties in Attendance: The patient and her daughter, Eboni. Decisional Capacity of the Patient: Patient has ability to make her own medical decisions. - Diagnosis for Encounter (1) Metastatic carcinoid tumor Summary: Patient is admitted for metabolic alkalosis and hypokalemia secondary to poor oral intake and dehydration due to metastatic carcinoid tumor. She has improved with IV fluids and patient for potassium but her diet remains poor overall. She remains hospitalized due to worsening white count and adjustment of her blood pressure medications. - Encounter Subjective/Patient's Story: She currently lives at home alone. She states she lived in [place], [place] previously but moved to [facility] over 25 years ago with her . Unfortunate, she is now . She states she is still quite active and is independent with her ADLs. She states since the beginning of 2019, she has stayed home much more frequently due to the coronavirus. She will occasionally get into her car and drive through the [employer] drive-through but otherwise she stays home a lot. She makes a point to stay active and to walk around her garden on a regular basis. She is a daughter, Eboni who lives in [place] and a son, Luis Eduardo who lives in [place]. She gets a ride to her oncology appointments and [place]. She reports she had been doing quite well overall even after diagnosis of carcinoid tumor about 5 years ago. She said over the past 3 to 4 weeks, she feels if she is beginning to decline. Reports feeling increasingly fatigued with decreased appetite. She states she also has had poor sleep over this period of time. Objective/Medical Story: Patient has known metastatic carcinoid tumor as diagnosed 5 years ago. She is on monthly octreotide. She reports she had been declining by medical staff perspective over the past few weeks. She had early satiety and fatigue along with poor sleep. She did see her oncologist prior to this hospitalization and the plan was to obtain a CT of the abdomen and pelvis. She presented here to our hospital due to worsening fatigue poor appetite. Found to have significant metabolic alkalosis and hypokalemia. She responded well to IV fluids and replacement of her potassium. Unfortunate, her white count has increased but there has been no obvious source of infection. She remains hospitalized for further work-up but will likely be discharged the following day if there is no obvious source of infection as she is clinically improving. Urine is at her early satiety related to progression of her metastatic carcinoid tumor. CT to day did not reveal any obvious gastric outlet obstruction but this still possible. She is scheduled to follow-up with her oncologist and a referral to another physician was planned who specializes in carcinoid tumor. Goals of Care: The patient has made it clear that her biggest priority is quality of life. She states that if she continues to have poor oral intake and early satiety that this is not a quality of life that she would find acceptable. She would like to know about treatment options for carcinoid tumor but she is hesitant about pursuing this and is leaning towards comfort measures and hospice. She does not want to pursue this though until she does see all of her treatment options first. She will be following up with her oncologist, Dr. Pascual and she states he has planned for her to use see another physician who specializes in her malignancy. She is agreeable to IV fluids on outpatient basis. Her oncologist had discussed this in the past but she did not want to go to [facility] just for IV fluids. She is agreeable to coming here to the [facility] for this. Plan: Patient has made it clear that she is a DNR at this time. The plan is for her to [facility] to discuss potential treatment options for her carcinoid tumor. She is leaning towards hospice and not pursuing treatment but she would like all of her options first before deciding this. I did speak with her oncologist to make him aware of this and he will discuss this during their next visit. He feels that hospice would be ap propriate if she does not want to pursue treatment. Code Status: Do Not Attempt Resuscitation Time spent on advance care plannin
[2020-05-10] MEDS: LATANOPROST 0.005% OPHTH DROPS EACHEYE SCH (21:00)
[2020-05-10] MEDS: MIRTAZAPINE 15 MG TABLET PO SCH (21:00)
[2020-05-10] MEDS: ACETAMINOPHEN 325 MG TABLET PO PRN (22:01)
[2020-05-11] MEDS: SODIUM CHLORIDE FLUSH 0.9% 10 ML SYRINGE IVP SCH ×4 (00:12→23:52)
[2020-05-11] MEDS: IBUPROFEN 600 MG TABLET PO SCH ×5 (00:52→23:52)
[2020-05-11] MEDS: ONDANSETRON 4 MG/2 ML VIAL IVP PRN (02:17)
[2020-05-11 05:33] LABS: BASOPHILS # (AUTO) 0.1 10^3/uL (0.0-0.1); BASOPHILS % (AUTO) 0.3 %; EOSINOPHILS % (AUTO) 0.1 %; LYMPHOCYTES # (AUTO) 0.2 10^3/uL (1.5-3.5); LYMPHOCYTES % (AUTO) 0.8 %; MEAN CORPUSCULAR HEMOGLOBIN 26.7 pg (27.0-31.0); MEAN CORPUSCULAR HGB CONC 32.3 g/dL (32.0-36.0); MEAN CORPUSCULAR VOLUME 82.7 fL (81.0-99.0); MEAN PLATELET VOLUME 12.4 fL (7.9-10.8); MONOCYTES # (AUTO) 1.2 10^3/uL (0.0-1.0); MONOCYTES % (AUTO) 5.1 %; NEUTROPHILS # (AUTO) 21.4 10^3/uL (1.5-6.6); NEUTROPHILS % (AUTO) 92.2 %; PLT - PLATELET COUNT 170 10^3/uL (130-450); RED CELL DISTRIBUTION WIDTH 14.7 % (12.0-15.0); WHITE BLOOD COUNT 23.3 x10^3/uL (4.8-10.8)
[2020-05-11 05:40] LABS: CALCIUM 8.3 mg/dL (8.5-10.3)
[2020-05-11] MEDS: PANTOPRAZOLE 40 MG TABLET PO SCH (06:16)
[2020-05-11 06:22] LABS: PLATELET ESTIMATE, MANUAL NORMAL (130-450,000) (NORMAL); PLATELET MORPHOLOGY NORMAL APPEARANCE (NORMAL); RBC MORPHOLOGY (MULTIPLE) NORMAL APPEARANCE (NORMAL)
[2020-05-11] MEDS: POTASSIUM CHLORIDE 20 MEQ/15 ML UDC PO SCH ×2 (08:21→20:32)
[2020-05-11] MEDS: ACETAMINOPHEN 325 MG TABLET PO PRN ×3 (08:22→22:15)
[2020-05-11] MEDS: lisinopriL 5 MG TABLET PO SCH (08:22)
[2020-05-11] MEDS: amLODIPine 5 MG TABLET PO SCH (08:22)
[2020-05-11] MEDS: METOPROLOL TARTRATE 25 MG TABLET PO SCH ×2 (08:23→20:30)
[2020-05-11] MEDS ORDERED: LACTATED RINGERS 1,000 ML IV ONE (08:31)
[2020-05-11] MEDS: INSULIN ASPART 300 UNIT/3 ML PEN SUBQ SCH ×4 (08:33→20:38)
[2020-05-11] MEDS: HEPARIN 5,000 UNIT/ML VIAL SUBQ SCH ×2 (08:33→20:30)
[2020-05-11] MEDS: DORZOLAMIDE/TIMOLOL OPHTH DROPS EACHEYE SCH ×2 (08:38→20:33)
[2020-05-11 09:04] LABS: GLUCOSE, URINE (UA) NEGATIVE (NEGATIVE); KETONES,URINE (UA) TRACE mg/dL (NEGATIVE); LEUKOCYTE ESTERASE, URINE SMALL (NEGATIVE); NITRITE,URINE NEGATIVE (NEGATIVE); OCCULT BLOOD,URINE SMALL (NEGATIVE); PH,URINE 5.5 PH (5.0-7.5); PROTEIN,URINE 100 mg/dL (NEGATIVE); UROBILINOGEN,URINE 0.2 (NORMAL) E.U./dL (NORMAL)
[2020-05-11 09:11] LABS: BILIRUBIN,URINE NEGATIVE (NEGATIVE); CLARITY,URINE CLEAR (CLEAR); ICTOTEST,URINE NEGATIVE
[2020-05-11 09:29] LABS: RBC,URINE 0-5 /HPF (0-5)
[2020-05-11 09:30] LABS: BACTERIA,URINE Few /HPF (None Seen); SQUAMOUS EPITHELIAL CELL,UR RARE Squamous (<= Few)
--- NOTE | 2020-05-11 10:59 | PROVIDER PROGRESS NOTE ---
Subjective - Prog Note Date Prog Note Date: 05/11/20 - Subjective Subjective: She reports she did not sleep very much last night. She had abdominal pain that was poorly controlled yesterday evening. She was unable to get a heat pack which normally controls her pain quite well. She reports a little diarrhea this morning which is not unusual for her. 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 Reports no dyspnea or cough. Denies any dysuria, urgency. Current Medications - Current Medications Current Medications: Active Medications Acetaminophen (Tylenol) 650 mg PO Q4HR PRN PRN Reason: Pain 1 to 4 Last Admin: 05/11/20 08:22 Dose: 650 mg Documented by: Amlodipine Besylate (Norvasc) 10 mg PO DAILY [facility] Last Admin: 05/11/20 08:22 Dose: 10 mg Documented by: Carboxymethylcellulose (Refresh 1% Ophth Drops) 1 drops EACHEYE PRN PRN PRN Reason: Dry Eye Dorzolamide/Timolol (Cosopt) 1 drops EACHEYE BID [facility] Last Admin: 05/11/20 08:38 Dose: Not Given Documented by: Heparin Sodium (Porcine) () 5,000 unit SUBQ BID [facility] Last Admin: 05/11/20 08:33 Dose: 5,000 unit Documented by: Ibuprofen (Motrin) 600 mg PO Q6HR [facility] Last Admin: 05/11/20 06:16 Dose: 600 mg Documented by: Insulin Aspart (Novolog) 1 - 9 unit SUBQ 0800,1200,1700,2100 [facility]; Protocol Last Admin: 05/11/20 08:33 Dose: 1 unit Documented by: Latanoprost (Xalatan Ophth Drops) 1 drops EACHEYE QPM [facility] Last Admin: 05/10/20 21:00 Dose: 1 drops Documented by: Metoprolol Tartrate (Lopressor) 25 mg PO BID [facility] Last Admin: 05/11/20 08:23 Dose: 25 mg Documented by: Mirtazapine (Remeron) 15 mg PO QPM [facility] Last Admin: 05/10/20 21:00 Dose: 15 mg Documented by: Ondansetron HCl (Zofran Inj) 4 mg IVP Q6HR PRN PRN Reason: Nausea / Vomiting Last Admin: 05/11/20 02:17 Dose: 4 mg Documented by: Oxycodone HCl (Roxicodone) 5 mg PO Q4HR PRN PRN Reason: PAIN Pantoprazole Sodium (Protonix) 40 mg PO QDAC [facility] Last Admin: 05/11/20 06:16 Dose: 40 mg Documented by: Potassium Chloride () 20 meq PO BID [facility] Last Admin: 05/11/20 08:21 Dose: 20 meq Documented by: Prochlorperazine Edisylate (Compazine Inj) 10 mg IVP Q6HR PRN PRN Reason: Nausea / Vomiting Last Admin: 05/10/20 00:10 Dose: 10 mg Documented by: Sodium Chloride (Normal Saline Flush 0.9%) 10 ml IVP PRN PRN PRN Reason: NEEDED PER PROVIDER ORDERS Sodium Chloride (Normal Saline Flush 0.9%) 10 ml IVP 0100,0900,1700 [facility] Last Admin: 05/11/20 08:36 Dose: 10 ml Documented by: Latanoprost 0.005% Ophth Drops [Xalatan] 1 drops OPTH QPM 03/06/13 Lisinopril [Prinivil] 5 mg PO DAILY 03/06/13 Cholecalciferol (Vitamin D3) [Vitamin D3] 2,000 unit PO DAILY 05/08/20 Dorzolamide HCl/Timolol Maleat [Dorzolamide-Timolol Eye Drops] 1 drops EACHEYE BID 05/08/20 Ibuprofen [Ibu-200] 200 mg PO Q6H PRN 05/08/20 Loperamide [Imodium] 2 mg PO PRN PRN 05/08/20 Metoprolol Tartrate 25 mg ORAL BID 05/08/20 Octreotide Acetate,Mi-Spheres [Sandostatin Lar Depot] 30 mg IM ONCE 05/08/20 Objective - Vital Signs/Intake & Output Reviewed Vital Signs: Yes Vital Signs: Vital Signs x48h Temp Pulse Resp BP BP Pulse Ox 05/11/20 08:23 146/68 H 05/11/20 07:20 36.8 C 88 16 146/68 H 96 05/11/20 04:36 36.3 C L 82 20 163/66 H 97 Intake & Output: Intake & Output 05/08/20 05/09/20 05/10/20 05/11/20 23:59 23:59 23:59 23:59 Intake Total 4160 2076 1250 240 Output Total 755 525 700 Balance 3575 4701 550 240 - Objective General Appearance: positive: No acute distress, Alert Eyes Bilateral: positive: Normal inspection, Conjunctivae nml ENT: positive: ENT inspection nml Neck: positive: Nml inspection Respiratory: positive: No respiratory distress, Other (Diminished in bases.). negative: Wheezes, Rales Cardiovascular: positive: Regular rate & rhythm, No murmur. negative: Tachycardia, Bradycardia, Systolic murmur Abdomen: positive: Nml bowel sounds, Tenderness (Minimal tenderness in the epigastric region.). negative: Non-tender, No distention, Guarding, Rebound Skin: positive: Warm, Dry Extremities: positive: Full ROM, Pedal edema (+1 edema in her bilateral lower extremities.) Neurologic/Psychiatric: positive: Oriented x3, Motor nml. negative: Disoriented to person, Disoriented to place, Disoriented to time - Lab Results Fish Bones: 05/11/20 05:30 05/11/20 05:13 Other Labs: Lab Results x24hrs 05/11/20 05/11/20 05/11/20 Range/Units 08:45 05:30 05:13 WBC 23.3 H (4.8-10.8) x10^3/uL RBC 4.50 (4.20-5.40) 10^6/uL Hgb 12.0 (12.0-16.0) g/dL Hct 37.2 (37.0-47.0) % MCV 82.7 (81.0-99.0) fL MCH 26.7 L (27.0-31.0) pg MCHC 32.3 (32.0-36.0) g/dL RDW 14.7 (12.0-15.0) % Plt Count 170 (130-450) 10^3/uL MPV 12.4 H (7.9-10.8) fL Neut # (Auto) 21.4 H (1.5-6.6) 10^3/uL Lymph # (Auto) 0.2 L (1.5-3.5) 10^3/uL [place] # (Auto) 1.2 H (0.0-1.0) 10^3/uL Eos # (Auto) 0.0 (0.0-0.7) 10^3/uL Baso # (Auto) 0.1 (0.0-0.1) 10^3/uL Absolute Nucleated RBC 0.00 x10^3/uL Nucleated RBC % 0.0 /100WBC Manual Slide Review Indicated Platelet Estimate NORMAL (130-450,000) (NORMAL) Platelet Morphology NORMAL APPEARANCE (NORMAL) RBC Morph Micro Appear NORMAL APPEARANCE (NORMAL) Sodium 131 L (135-145) mmol/L Potassium 3.6 (3.5-5.0) mmol/L Chloride 93 L (101-111) mmol/L Carbon Dioxide 26 (21-32) mmol/L Anion Gap 12.0 (6-13) BUN 40 H (6-20) mg/dL Creatinine 1.0 (0.4-1.0) mg/dL Estimated GFR (MDRD) 53 L (>89) Glucose 144 H (70-100) mg/dL Calcium 8.3 L (8.5-10.3) mg/dL Urine Color YELLOW Urine Clarity CLEAR (CLEAR) Urine pH 5.5 (5.0-7.5) PH Ur Specific [place] 1.020 (1.002-1.030) Urine Protein 100 H (NEGATIVE) mg/dL Urine Glucose (UA) NEGATIVE (NEGATIVE) mg/dL Urine Ketones TRACE (NEGATIVE) mg/dL Urine Occult Blood SMALL H (NEGATIVE) Urine Nitrite NEGATIVE (NEGATIVE) Urine Bilirubin NEGATIVE (NEGATIVE) Urine Urobilinogen 0.2 (NORMAL) (NORMAL) E.U./dL Ur Leukocyte Esterase SMALL H (NEGATIVE) Urine RBC 0-5 (0-5) /HPF Urine WBC 0-3 (0-5) /HPF Ur Squamous Epith Cells RARE Squamous (<= Few) Urine Bacteria Few (None Seen) /HPF Ur Microscopic Review INDICATED Urine Culture Comments INDICATED ABX Reporting Has patient been on IV antibiotics over the past 48 hours?: No Assessment/Plan - Problem List (1) Leukocytosis Impression: Her white count continues to increase and today it is over 23,000 with a left shift. [facility] to [facility] prior labs and her white count back in April was 6500. I am concerned this may be evidence of infection although to date, there has been no obvious source and she has remained afebrile with no tachycardia. Her urinalysis admission was negative and repeat today is unremarkable. Her chest x-ray was not suggestive of infection. CT of the abdomen and pelvis without contrast did not reveal any obvious source of infection. Although her diarrhea is reportedly not worse than usual, we will check for C. difficile given her continued elevation in her white count. Blood cultures were drawn yesterday and are pending. I discussed with the patient that I am concerned about sending her home given her white count continues to rise. She is agreeable to staying 1 more night for further work-up of this. We will continue to hold off on antibiotics given the lack of infection. She has had a cholecystectomy in the past so we will not obtain a right upper quadrant ultrasound. (2) Acute kidney injury Impression: Creatinine has increased to 1.0 today and her baseline is 0.6. Her BUN has also increased to the 40s when it was previously within normal limits. Her urinalysis today does not reveal any casts. We will administer another liter of lactated Ringer's today. We will discontinue her lisinopril. Repeat labs in the morning. (3) Early satiety Impression: This appears to be slowly improving. She is able to eat more of her dinner yesterday evening. This is secondary to her metastatic carcinoid tumor. We will continue her on Remeron and she will have outpatient follow-up with her oncologist to discuss potential treatment options for her carcinoid tumor. (4) Hypertension Impression: Her blood pressure has improved today with systolics in the 120s to 140s. We will continue her on metoprolol and amlodipine. Will discontinue lisinopril given the slight elevation in her creatinine. (5) Metastatic carcinoid tumor Impression: Stable. She will continue outpatient follow-up with her oncologist. She has an appointment on May [address] Pascual. (6) Hyponatremia Impression: This is chronic and stable. We will continue to monitor. (7) Type 2 diabetes mellitus Impression: Is a new diagnosis for her. Her A1c is 6.8%. We agreed that we will hold off on treatment and given her poor appetite overall, we will not place her on a carb controlled diet. (8) Hypokalemia Impression: This has resolved. We will continue with oral potassium supplementation. (9) Metabolic alkalosis Impression: This has resolved.
[2020-05-11] MEDS: MIRTAZAPINE 15 MG TABLET PO SCH (20:31)
[2020-05-11] MEDS: LATANOPROST 0.005% OPHTH DROPS EACHEYE SCH (20:33)
[2020-05-12 05:37] LABS: BASOPHILS % (AUTO) 0.2 %; EOSINOPHILS % (AUTO) 0.1 %; HGB - HEMOGLOBIN 11.4 g/dL (12.0-16.0); LYMPHOCYTES # (AUTO) 0.2 10^3/uL (1.5-3.5); MEAN CORPUSCULAR HEMOGLOBIN 27.3 pg (27.0-31.0); MEAN CORPUSCULAR VOLUME 82.5 fL (81.0-99.0); MEAN PLATELET VOLUME 12.6 fL (7.9-10.8); MONOCYTES # (AUTO) 0.7 10^3/uL (0.0-1.0); MONOCYTES % (AUTO) 3.8 %; NEUTROPHILS # (AUTO) 17.8 10^3/uL (1.5-6.6); NEUTROPHILS % (AUTO) 93.8 %; PLT - PLATELET COUNT 212 10^3/uL (130-450); RED BLOOD COUNT 4.18 10^6/uL (4.20-5.40); RED CELL DISTRIBUTION WIDTH 14.8 % (12.0-15.0)
[2020-05-12 05:50] LABS: CALCIUM 8.2 mg/dL (8.5-10.3); CREATININE 1.1 mg/dL (0.4-1.0); MAGNESIUM 1.9 mg/dL (1.7-2.8); PHOSPHORUS 2.1 mg/dL (2.5-4.6)
[2020-05-12] MEDS: IBUPROFEN 600 MG TABLET PO SCH (06:27)
[2020-05-12] MEDS: PANTOPRAZOLE 40 MG TABLET PO SCH (06:27)
[2020-05-12] MEDS: INSULIN ASPART 300 UNIT/3 ML PEN SUBQ SCH ×4 (07:53→21:03)
[2020-05-12] MEDS: POTASSIUM CHLORIDE 20 MEQ/15 ML UDC PO SCH (09:05)
[2020-05-12] MEDS: HEPARIN 5,000 UNIT/ML VIAL SUBQ SCH (09:06)
[2020-05-12] MEDS: amLODIPine 5 MG TABLET PO SCH ×2 (09:06→09:09)
[2020-05-12] MEDS: METOPROLOL TARTRATE 25 MG TABLET PO SCH ×2 (09:10→21:01)
[2020-05-12] MEDS: ACETAMINOPHEN 325 MG TABLET PO PRN ×2 (09:24→16:54)
[2020-05-12] MEDS: DORZOLAMIDE/TIMOLOL OPHTH DROPS EACHEYE SCH ×2 (09:28→21:01)
--- NOTE | 2020-05-12 09:35 | XRAY Report ---
PROCEDURE: Abdomen 1 View X-Ray INDICATIONS: Constipation. Abdominal distention. TECHNIQUE: 1 view of the abdomen were acquired. COMPARISON: Correlation is made with abdomen and pelvis CT 05/08/2020 FINDINGS: Surgical changes and devices: Cholecystectomy clips are seen. Bowel: No pneumoperitoneum. The bowel gas pattern is normal. Soft tissues: No masses; visualized solid organ contours appear normal in size. No suspicious abdom inal calcifications. Bones: No suspicious bony abnormalities. Age-appropriate degenerative changes are seen. A remote f racture of the right pubis can be seen. IMPRESSION: The bowel gas pattern is nonobstructive. No abnormal burden of colonic stool can be seen . Please consider short-term follow-up plain film versus repeat CT for further evaluation. Reviewed by: Tommie Randle MD on 05/12/2020 8:33 AM YELENA Approved by: Tommie Randle MD on 05/12/2020 8:33 AM YELENA Station ID: [id number]
--- NOTE | 2020-05-12 10:22 | PROVIDER PROGRESS NOTE ---
Subjective - Prog Note Date Prog Note Date: 05/12/20 - Subjective Subjective: She was a little confused overnight and thought she was at home but when she spoke to the nurse, she was quickly reoriented. She reports feeling okay this morning. Feels like she is constipated and has not had a bowel movement since yesterday. Reports no chest pain or dyspnea. Reports no difficulty urinating. States her abdominal pain is controlled overall. Current Medications - Current Medications Current Medications: Active Medications Acetaminophen (Tylenol) 650 mg PO Q4HR PRN PRN Reason: Pain 1 to 4 Last Admin: 05/12/20 09:24 Dose: 650 mg Documented by: Amlodipine Besylate (Norvasc) 10 mg PO DAILY [facility] Last Admin: 05/12/20 09:09 Dose: 10 mg Documented by: Carboxymethylcellulose (Refresh 1% Ophth Drops) 1 drops EACHEYE PRN PRN PRN Reason: Dry Eye Cephalexin (Keflex) 250 mg PO Q6HR [facility] Dorzolamide/Timolol (Cosopt) 1 drops EACHEYE BID [facility] Last Admin: 05/12/20 09:28 Dose: Not Given Documented by: Heparin Sodium (Porcine) () 5,000 unit SUBQ BID [facility] Last Admin: 05/12/20 09:06 Dose: 5,000 unit Documented by: Insulin Aspart (Novolog) 1 - 9 unit SUBQ 0800,1200,1700,2100 [facility]; Protocol Last Admin: 05/12/20 07:53 Dose: 1 unit Documented by: Latanoprost (Xalatan Ophth Drops) 1 drops EACHEYE QPM [facility] Last Admin: 05/11/20 20:33 Dose: 1 drops Documented by: Metoprolol Tartrate (Lopressor) 25 mg PO BID [facility] Last Admin: 05/12/20 09:10 Dose: 25 mg Documented by: Mineral Oil (Cavilon) 1 applic TOP BID PRN PRN Reason: reddened periarea Mirtazapine (Remeron) 15 mg PO QPM [facility] Last Admin: 05/11/20 20:31 Dose: 15 mg Documented by: Ondansetron HCl (Zofran Inj) 4 mg IVP Q6HR PRN PRN Reason: Nausea / Vomiting Last Admin: 05/11/20 02:17 Dose: 4 mg Documented by: Oxycodone HCl (Roxicodone) 5 mg PO Q4HR PRN PRN Reason: PAIN Pantoprazole Sodium (Protonix) 40 mg PO QDAC [facility] Last Admin: 05/12/20 06:27 Dose: 40 mg Documented by: Potassium Chloride () 20 meq PO DAILY [facility] Last Admin: 05/12/20 09:05 Dose: 20 meq Documented by: Prochlorperazine Edisylate (Compazine Inj) 10 mg IVP Q6HR PRN PRN Reason: Nausea / Vomiting Last Admin: 05/10/20 00:10 Dose: 10 mg Documented by: Sodium Chloride (Normal Saline Flush 0.9%) 10 ml IVP PRN PRN PRN Reason: NEEDED PER PROVIDER ORDERS Sodium Chloride (Normal Saline Flush 0.9%) 10 ml IVP 0100,0900,1700 [facility] Last Admin: 05/11/20 23:52 Dose: 10 ml Documented by: Latanoprost 0.005% Ophth Drops [Xalatan] 1 drops OPTH QPM 03/06/13 Lisinopril [Prinivil] 5 mg PO DAILY 03/06/13 Cholecalciferol (Vitamin D3) [Vitamin D3] 2,000 unit PO DAILY 05/08/20 Dorzolamide HCl/Timolol Maleat [Dorzolamide-Timolol Eye Drops] 1 drops EACHEYE BID 05/08/20 Ibuprofen [Ibu-200] 200 mg PO Q6H PRN 05/08/20 Loperamide [Imodium] 2 mg PO PRN PRN 05/08/20 Metoprolol Tartrate 25 mg ORAL BID 05/08/20 Octreotide Acetate,Mi-Spheres [Sandostatin Lar Depot] 30 mg IM ONCE 05/08/20 Objective - Vital Signs/Intake & Output Reviewed Vital Signs: Yes Vital Signs: Vital Signs x48h Temp Pulse Resp BP BP Pulse Ox 05/12/20 09:10 149/69 H 05/12/20 07:25 37.0 C 88 18 148/69 H 96 05/12/20 05:00 36.4 C L 87 18 160/66 H 97 Intake & Output: Intake & Output 05/09/20 05/10/20 05/11/20 05/12/20 23:59 23:59 23:59 23:59 Intake Total 2076 1250 2170 80 Output Total 525 700 20 Balance 4569 374 4474 60 - Objective General Appearance: positive: Alert, Lethargic Eyes Bilateral: positive: Normal inspection, Conjunctivae nml ENT: positive: ENT inspection nml, No signs of dehydration. negative: Dry mucous membranes Neck: positive: Nml inspection Respiratory: positive: No respiratory distress, Other (Diminished in bases.). negative: Wheezes, Rales Cardiovascular: positive: Regular rate & rhythm, No murmur. negative: Tachycardia, Bradycardia, Systolic murmur Abdomen: positive: Non-tender, Nml bowel sounds. negative: No distention, Tenderness, Guarding, Rebound Skin: positive: Warm, Dry Extremities: positive: Pedal edema (She has +1 pitting edema in her bilateral lower extremities.), Other (There is purulent discharge noted from the peripheral IV catheter located over the anterior aspect of the left elbow. The area is nontender. No significant erythema.) Neurologic/Psychiatric: positive: Motor nml. negative: Disoriented to person, Disoriented to place, Disoriented to time - Lab Results Fish Bones: 05/12/20 05:20 05/12/20 05:20 Other Labs: Lab Results x24hrs 05/12/20 05/12/20 05/12/20 Range/Units 07:55 05:20 05:20 WBC 19.0 H (4.8-10.8) x10^3/uL RBC 4.18 L (4.20-5.40) 10^6/uL Hgb 11.4 L (12.0-16.0) g/dL Hct 34.5 L (37.0-47.0) % MCV 82.5 (81.0-99.0) fL MCH 27.3 (27.0-31.0) pg MCHC 33.0 (32.0-36.0) g/dL RDW 14.8 (12.0-15.0) % Plt Count 212 (130-450) 10^3/uL MPV 12.6 H (7.9-10.8) fL Neut # (Auto) 17.8 H (1.5-6.6) 10^3/uL Lymph # (Auto) 0.2 L (1.5-3.5) 10^3/uL [place] # (Auto) 0.7 (0.0-1.0) 10^3/uL Eos # (Auto) 0.0 (0.0-0.7) 10^3/uL Baso # (Auto) 0.0 (0.0-0.1) 10^3/uL Absolute Nucleated RBC 0.00 x10^3/uL Nucleated RBC % 0.0 /100WBC Sodium 128 L (135-145) mmol/L Potassium 4.2 (3.5-5.0) mmol/L Chloride 92 L (101-111) mmol/L Carbon Dioxide 24 (21-32) mmol/L Anion Gap 12.0 (6-13) BUN 43 H (6-20) mg/dL Creatinine 1.1 H (0.4-1.0) mg/dL Estimated GFR (MDRD) 47 L (>89) Glucose 176 H (70-100) mg/dL Calcium 8.2 L (8.5-10.3) mg/dL Phosphorus 2.1 L (2.5-4.6) mg/dL Magnesium 1.9 (1.7-2.8) mg/dL Urine Sodium < 12.0 mmol/L Stl C. diff Tox B Gene (NEGATIVE) 05/11/20 Range/Units 10:47 WBC (4.8-10.8) x10^3/uL RBC (4.20-5.40) 10^6/uL Hgb (12.0-16.0) g/dL Hct (37.0-47.0) % MCV (81.0-99.0) fL MCH (27.0-31.0) pg MCHC (32.0-36.0) g/dL RDW (12.0-15.0) % Plt Count (130-450) 10^3/uL MPV (7.9-10.8) fL Neut # (Auto) (1.5-6.6) 10^3/uL Lymph # (Auto) (1.5-3.5) 10^3/uL [place] # (Auto) (0.0-1.0) 10^3/uL Eos # (Auto) (0.0-0.7) 10^3/uL Baso # (Auto) (0.0-0.1) 10^3/uL Absolute Nucleated RBC x10^3/uL Nucleated RBC % /100WBC Sodium (135-145) mmol/L Potassium (3.5-5.0) mmol/L Chloride (101-111) mmol/L Carbon Dioxide (21-32) mmol/L Anion Gap (6-13) BUN (6-20) mg/dL Creatinine (0.4-1.0) mg/dL Estimated GFR (MDRD) (>89) Glucose (70-100) mg/dL Calcium (8.5-10.3) mg/dL Phosphorus (2.5-4.6) mg/dL Magnesium (1.7-2.8) mg/dL Urine Sodium mmol/L Stl C. diff Tox B Gene NEGATIVE (NEGATIVE) ABX Reporting Has patient been on IV antibiotics over the past 48 hours?: No Assessment/Plan - Problem List (1) Acute kidney injury Impression: Her creatinine keeps on increasing as well as her BUN. Today her creatinine is 1.1. It was 0.6 on admission. She was bladder scan today fourth over 330 mL of urine. She has received over 4 L of IV fluids during his hospitalization and she has evidence of edema on exam at this point. I do not think she can be discharged home with her declining renal function. We will hold off on further IV fluids at this time given her lower extremity edema. We will check a renal ultrasound to rule out obstruction. We will check urine electrolytes. Avoid nephrotoxins. We will continue to monitor her renal function. (2) Leukocytosis Impression: Her white count has improved today to 19,000. The left shift persists. The only obvious source of infection has been the infected left peripheral IV catheter. Repeat urinalysis has been unremarkable. Blood cultures have been negative to date. C. difficile is also negative. I suspect this leukocytosis has been reactive. We will continue to trend her white count while she is hosp italized. She has been started on oral Keflex for the infected left arm IV catheter. (3) Infection of intravenous catheter Impression: It was noted today that there is purulent discharge from the IV catheter in her left arm. The catheter has been removed and we have sent for cultures. This may potentially explain her elevated white count. She not have evidence of systemic infection except for leukocytosis. We will start her on oral Keflex empirically. Qualifiers: Encounter type: initial encounter Qualified Code(s): T82.7XXA - Infection and inflammatory reaction due to other cardiac and vascular devices, implants and grafts, initial encounter (4) Early satiety Impression: This is stable. She has been tolerating a pured diet at her request. This is like secondary to her metastatic carcinoid tumor. Continue to encourage oral intake. (5) Hypertension Impression: Her blood pressure has been better controlled on amlodipine and metoprolol. Lisinopril has been discontinued due to acute kidney injury. We will continue to monitor during this hospitalization. (6) Metastatic carcinoid tumor Impression: She reports chronic diarrhea due to the metastatic carcinoid tumor. She feels like she is constipated today. We will order an abdominal x-ray to rule out obs truction. She will continue outpatient follow-up with her oncologist on discharge. (7) Hyponatremia Impression: Her urine sodium is decreased today at 128. She has received IV fluids at improvement in her sodium. She does have edema on exam. We would ideally obtain echocardiogram but this is not available. We will check a urine sodium today. We will hold off on further IV fluids at this time being. Recheck sodium in the morning. (8) Type 2 diabetes mellitus Impression: Her A1c is 6.8%. We discussed this diagnosis and we will not treat her with any pharmacologic agents. We will also encourage her to eat whatever she would like given her poor oral intake overall. (9) Hypokalemia Impression: Resolved. Continue oral potassium supplementation. We will decrease the dose as her potassium is greater than 4. (10) Metabolic alkalosis Impression: This has resolved.
[2020-05-12] MEDS: SODIUM CHLORIDE FLUSH 0.9% 10 ML SYRINGE IVP SCH ×3 (11:12→23:52)
[2020-05-12] MEDS: cephALEXin 250 MG CAPSULE PO SCH ×3 (13:11→23:51)
--- NOTE | 2020-05-12 13:27 | Ultrasound Report ---
PROCEDURE: Retroperitoneal INDICATIONS: Acute kidney injury. TECHNIQUE: Real-time scanning was performed of the retroperitoneal organs, with image documentation. COMPARISON: Correlation is made with CT 05/08/2020 FINDINGS: Kidneys: Kidneys are normal in size. Right kidney measures 9 cm long; left kidney measures 9 cm grecia g. Right renal cortical thickness is 0.9 cm; left renal cortical thickness is 1 cm. No solid masses , hydronephrosis, or nephrolithiasis. Small bilateral pleural effusions are incidentally noted. Moderate free fluid can be seen throughout the abdomen. Multiple hyperechoic liver masses are seen, with increased vascularity. The largest measures at least 9.3 cm. The previously described adrenal masses are not seen on these ultrasound images. IMPRESSION: Normal-appearing kidneys, without hydronephrosis. Small bilateral pleural effusions. Ascites. Liver masses again seen. Reviewed by: Tommie Randle MD on 05/12/2020 12:25 PM AKMARLEEN Approved by: Tommie Randle MD on 05/12/2020 12:25 PM AKDT Station ID: [id number]
[2020-05-12] MEDS: MIN OIL/DIMETHICON/COCONUT OIL 92 GM TUBE TOP PRN (15:19)
[2020-05-12 20:03] LABS: HGB - HEMOGLOBIN 11.6 g/dL (12.0-16.0)
[2020-05-12 20:12] LABS: CREATININE 1.5 mg/dL (0.4-1.0)
[2020-05-12] MEDS: MIRTAZAPINE 15 MG TABLET PO SCH (21:01)
[2020-05-12] MEDS: oxyCODONE 5 MG TABLET PO PRN (21:01)
[2020-05-12] MEDS: LATANOPROST 0.005% OPHTH DROPS EACHEYE SCH (21:02)
[2020-05-13] MEDS: oxyCODONE 5 MG TABLET PO PRN ×2 (04:43→18:40)
[2020-05-13] MEDS: ONDANSETRON 4 MG/2 ML VIAL IVP PRN (05:03)
[2020-05-13 05:42] LABS: BASOPHILS % (AUTO) 0.5 %; EOSINOPHILS % (AUTO) 1.2 %; HGB - HEMOGLOBIN 10.9 g/dL (12.0-16.0); LYMPHOCYTES % (AUTO) 1.2 %; MEAN CORPUSCULAR HEMOGLOBIN 26.9 pg (27.0-31.0); MEAN CORPUSCULAR HGB CONC 31.9 g/dL (32.0-36.0); MEAN CORPUSCULAR VOLUME 84.4 fL (81.0-99.0); MEAN PLATELET VOLUME 11.9 fL (7.9-10.8); MONOCYTES % (AUTO) 2.8 %; NEUTROPHILS % (AUTO) 93.6 %; PLT - PLATELET COUNT 245 10^3/uL (130-450); RED BLOOD COUNT 4.05 10^6/uL (4.20-5.40); RED CELL DISTRIBUTION WIDTH 15.2 % (12.0-15.0)
[2020-05-13 05:44] LABS: ABNORMAL LYMPHS % (MANUAL) 0 %
[2020-05-13 05:59] LABS: ALBUMIN 2.1 g/dL (3.2-5.5); BILIRUBIN,DIRECT 0.3 mg/dL (0.1-0.5); BILIRUBIN,TOTAL 0.8 mg/dL (0.2-1.0); CALCIUM 7.8 mg/dL (8.5-10.3); CREATININE 1.5 mg/dL (0.4-1.0); MAGNESIUM 1.9 mg/dL (1.7-2.8); PHOSPHORUS 3.5 mg/dL (2.5-4.6); TOTAL PROTEIN 5.3 g/dL (6.7-8.2)
[2020-05-13 06:02] LABS: BAND NEUTROPHILS % (MANUAL) 3 %; LYMPHOCYTES # (MANUAL) 0.5 10^3/uL (1.5-3.5); LYMPHOCYTES % (MANUAL) 3 %; MONOCYTES # (MANUAL) 0.5 10^3/uL (0.0-1.0); PLATELET ESTIMATE, MANUAL NORMAL (130-450,000) (NORMAL); PLATELET MORPHOLOGY NORMAL APPEARANCE (NORMAL); RBC MORPHOLOGY (MULTIPLE) NORMAL APPEARANCE (NORMAL)
[2020-05-13 06:03] LABS: DIFFERENTIAL COMMENT MANUAL DIFFERENTIAL
[2020-05-13] MEDS: PANTOPRAZOLE 40 MG TABLET PO SCH (06:41)
[2020-05-13] MEDS: cephALEXin 250 MG CAPSULE PO SCH ×3 (06:41→17:48)
[2020-05-13] MEDS ORDERED: ALBUMIN 25% 12.5 GM/50 ML VIAL IV STA ×2 (07:21→16:41)
--- NOTE | 2020-05-13 07:35 | PROVIDER PROGRESS NOTE ---
Subjective - Prog Note Date Prog Note Date: 05/13/20 - Subjective Subjective: She reports her pain is controlled. She still feels weak and tired overall. Reports no nausea or vomiting. Denies any dyspnea. She feels like she cannot go home in her current condition. Current Medications - Current Medications Current Medications: Active Medications Acetaminophen (Tylenol) 650 mg PO Q4HR PRN PRN Reason: Pain 1 to 4 Last Admin: 05/12/20 16:54 Dose: 650 mg Documented by: Amlodipine Besylate (Norvasc) 10 mg PO DAILY [facility] Last Admin: 05/12/20 09:09 Dose: 10 mg Documented by: Carboxymethylcellulose (Refresh 1% Ophth Drops) 1 drops EACHEYE PRN PRN PRN Reason: Dry Eye Cephalexin (Keflex) 250 mg PO Q6HR [facility] Last Admin: 05/13/20 06:41 Dose: 250 mg Documented by: Dorzolamide/Timolol (Cosopt) 1 drops EACHEYE BID [facility] Last Admin: 05/13/20 09:54 Dose: Not Given Documented by: Insulin Aspart (Novolog) 1 - 9 unit SUBQ 0800,1200,1700,2100 [facility]; Protocol Last Admin: 05/13/20 08:23 Dose: Not Given Documented by: Latanoprost (Xalatan Ophth Drops) 1 drops EACHEYE QPM [facility] Last Admin: 05/12/20 21:02 Dose: 1 drops Documented by: Metoprolol Tartrate (Lopressor) 25 mg PO BID [facility] Last Admin: 05/13/20 09:33 Dose: 25 mg Documented by: Mineral Oil (Cavilon) 1 applic TOP BID PRN PRN Reason: reddened periarea Last Admin: 05/12/20 15:19 Dose: 3 applic Documented by: Mirtazapine (Remeron) 15 mg PO QPM [facility] Last Admin: 05/12/20 21:01 Dose: 15 mg Documented by: Multi-Ingredient Ointment (Zinc Oxide) 1 applic TOP PRN PRN PRN Reason: Skin Care Ondansetron HCl (Zofran Inj) 4 mg IVP Q6HR PRN PRN Reason: Nausea / Vomiting Last Admin: 05/13/20 05:03 Dose: 4 mg Documented by: Oxycodone HCl (Roxicodone) 5 mg PO Q4HR PRN PRN Reason: PAIN Last Admin: 05/13/20 04:43 Dose: 5 mg Documented by: Pantoprazole Sodium (Protonix) 40 mg PO QDAC [facility] Last Admin: 05/13/20 06:41 Dose: 40 mg Documented by: Potassium Chloride () 20 meq PO DAILY [facility] Last Admin: 05/13/20 09:34 Dose: 20 meq Documented by: Prochlorperazine Edisylate (Compazine Inj) 10 mg IVP Q6HR PRN PRN Reason: Nausea / Vomiting Last Admin: 05/10/20 00:10 Dose: 10 mg Documented by: Sodium Chloride (Normal Saline Flush 0.9%) 10 ml IVP PRN PRN PRN Reason: NEEDED PER PROVIDER ORDERS Sodium Chloride (Normal Saline Flush 0.9%) 10 ml IVP 0100,0900,1700 [facility] Last Admin: 05/13/20 08:24 Dose: 10 ml Documented by: Latanoprost 0.005% Ophth Drops [Xalatan] 1 drops OPTH QPM 03/06/13 Lisinopril [Prinivil] 5 mg PO DAILY 03/06/13 Cholecalciferol (Vitamin D3) [Vitamin D3] 2,000 unit PO DAILY 05/08/20 Dorzolamide HCl/Timolol Maleat [Dorzolamide-Timolol Eye Drops] 1 drops EACHEYE BID 05/08/20 Ibuprofen [Ibu-200] 200 mg PO Q6H PRN 05/08/20 Loperamide [Imodium] 2 mg PO PRN PRN 05/08/20 Metoprolol Tartrate 25 mg ORAL BID 05/08/20 Octreotide Acetate,Mi-Spheres [Sandostatin Lar Depot] 30 mg IM ONCE 05/08/20 Objective - Vital Signs/Intake & Output Reviewed Vital Signs: Yes Vital Signs: Vital Signs x48h Temp Pulse Resp BP BP Pulse Ox 05/13/20 04:22 36.6 C 87 15 118/54 L 95 05/12/20 23:57 35.9 C L 83 16 116/54 L 95 Intake & Output: Intake & Output 05/10/20 05/11/20 05/12/20 05/13/20 23:59 23:59 23:59 23:59 Intake Total 1250 2170 400 Output Total 700 20 350 Balance 550 2170 380 -350 - Objective General Appearance: positive: Other (She is alert but lethargic. Appears ill and fatigued.) Eyes Bilateral: positive: Normal inspection, Conjunctivae nml ENT: positive: ENT inspection nml Neck: positive: Nml inspection Respiratory: positive: No respiratory distress, Other (Diminished in bases.). negative: Wheezes, Rales Cardiovascular: positive: Regular rate & rhythm, No murmur. negative: Tachycardia, Systolic murmur Abdomen: positive: Non-tender. negative: No distention, Tenderness, Guarding, Rebound Skin: positive: Warm, Dry Extremities: positive: Pedal edema (She has +1 pitting edema in her bilateral lower extremities) Neurologic/Psychiatric: positive: Motor nml. negative: Disoriented to person, Disoriented to place - Lab Results Fish Bones: 05/13/20 05:22 05/13/20 05:22 Other Labs: Lab Results x24hrs 05/13/20 05/13/20 05/12/20 Range/Units 05:22 05:22 19:55 WBC 16.0 H (4.8-10.8) x10^3/uL RBC 4.05 L (4.20-5.40) 10^6/uL Hgb 10.9 L (12.0-16.0) g/dL Hct 34.2 L (37.0-47.0) % MCV 84.4 (81.0-99.0) fL MCH 26.9 L (27.0-31.0) pg MCHC 31.9 L (32.0-36.0) g/dL RDW 15.2 H (12.0-15.0) % Plt Count 245 (130-450) 10^3/uL MPV 11.9 H (7.9-10.8) fL Neut # (Auto) Not Reportable Lymph # (Auto) Not Reportable Dale # (Auto) Not Reportable Eos # (Auto) Not Reportable Baso # (Auto) Not Reportable Absolute Nucleated RBC Not Reportable Total Counted 100 Band Neuts % (Manual) 3 (0 - 10) % Abnorm Lymph % (Manual) 0 % Nucleated RBC % Not Reportable Neutrophils # (Manual) 15.0 H (1.5-6.6) 10^3/uL Lymphocytes # (Manual) 0.5 L (1.5-3.5) 10^3/uL Monocytes # (Manual) 0.5 (0.0-1.0) 10^3/uL Eosinophils # (Manual) 0.0 (0-0.7) 10^3/uL Basophils # (Manual) 0.0 (0-0.1) 10^3/uL Differential Comment MANUAL DIFFERENTIAL WBC Morphology NORMAL APPEARANCE (NORMAL) Platelet Estimate NORMAL (130-450,000) (NORMAL) Platelet Morphology NORMAL APPEARANCE (NORMAL) RBC Morph Micro Appear NORMAL APPEARANCE (NORMAL) Sodium 129 L 127 L (135-145) mmol/L Potassium 4.0 4.3 (3.5-5.0) mmol/L Chloride 94 L 92 L (101-111) mmol/L Carbon Dioxide 23 23 (21-32) mmol/L Anion Gap 12.0 12.0 (6-13) BUN 54 H 50 H (6-20) mg/dL Creatinine 1.5 H 1.5 H (0.4-1.0) mg/dL Estimated GFR (MDRD) 33 L 33 L (>89) Glucose 152 H 219 H (70-100) mg/dL Calcium 7.8 L 8.0 L (8.5-10.3) mg/dL Phosphorus 3.5 (2.5-4.6) mg/dL Magnesium 1.9 (1.7-2.8) mg/dL Total Bilirubin 0.8 (0.2-1.0) mg/dL Direct Bilirubin 0.3 (0.1-0.5) mg/dL AST 85 H (10-42) IU/L ALT 35 (10-60) IU/L Alkaline Phosphatase 123 H (42-121) IU/L Total Protein 5.3 L (6.7-8.2) g/dL Albumin 2.1 L (3.2-5.5) g/dL Globulin 3.2 (2.1-4.2) g/dL Urine Sodium mmol/L 05/12/20 05/12/20 Range/Units 19:55 07:55 WBC (4.8-10.8) x10^3/uL RBC (4.20-5.40) 10^6/uL Hgb 11.6 L (12.0-16.0) g/dL Hct 36.5 L (37.0-47.0) % MCV (81.0-99.0) fL MCH (27.0-31.0) pg MCHC (32.0-36.0) g/dL RDW (12.0-15.0) % Plt Count (130-450) 10^3/uL MPV (7.9-10.8) fL Neut # (Auto) Lymph # (Auto) Dale # (Auto) Eos # (Auto) Baso # (Auto) Absolute Nucleated RBC Total Counted Band Neuts % (Manual) (0 - 10) % Abnorm Lymph % (Manual) % Nucleated RBC % Neutrophils # (Manual) (1.5-6.6) 10^3/uL Lymphocytes # (Manual) (1.5-3.5) 10^3/uL Monocytes # (Manual) (0.0-1.0) 10^3/uL Eosinophils # (Manual) (0-0.7) 10^3/uL Basophils # (Manual) (0-0.1) 10^3/uL Differential Comment WBC Morphology (NORMAL) Platelet Estimate (NORMAL) Platelet Morphology (NORMAL) RBC Morph Micro Appear (NORMAL) Sodium (135-145) mmol/L Potassium (3.5-5.0) mmol/L Chloride (101-111) mmol/L Carbon Dioxide (21-32) mmol/L Anion Gap (6-13) BUN (6-20) mg/dL Creatinine (0.4-1.0) mg/dL Estimated GFR (MDRD) (>89) Glucose (70-100) mg/dL Calcium (8.5-10.3) mg/dL Phosphorus (2.5-4.6) mg/dL Magnesium (1.7-2.8) mg/dL Total Bilirubin (0.2-1.0) mg/dL Direct Bilirubin (0.1-0.5) mg/dL AST (10-42) IU/L ALT (10-60) IU/L Alkaline Phosphatase (42-121) IU/L Total Protein (6.7-8.2) g/dL Albumin (3.2-5.5) g/dL Globulin (2.1-4.2) g/dL Urine Sodium < 12.0 mmol/L ABX Reporting Has patient been on IV antibiotics over the past 48 hours?: No Assessment/Plan - Problem List (1) Acute kidney injury Impression: Her renal function continues to decline. Her creatinine increased to 1.5 yesterday evening from 1.1 and this morning it has remained stable at 1.5 but her BUN continues to rise and is now 54. Creatinine was 0.6 on admission. She received multiple liters of IV fluids without improvement in her renal function. She also has significant lower extremity edema. Renal ultrasound yesterday did not reveal any obstruction or hydronephrosis. Urine sodium was less than 12. Urinalysis from 2 days ago did not reveal any casts. Given her metastatic carcinoid tumor and liver metastasis, I wonder if this could be a component of liver dysfunction causing her acute kidney injury. Given her edema, we will hold off on further IV fluids. We will trial albumin today given the low urine sodium. We will recheck her renal function this evening and in the morning. If it continues to decline then she will need transfer to higher level of care for nephrology evaluation. This was discussed with the patient and family and they are requesting [place] if necessary as that is where the daughter lives. (2) Leukocytosis Impression: This is improving and is now down to 16,000. She has remained afebrile. The only source of infection has been an infected left peripheral IV catheter which has since been removed. Her urinalysis has been unremarkable. C. difficile has been negative. Blood cultures have been negative. We will continue her on oral Keflex given the infected peripheral IV catheter. We will continue to trend her white count (3) Infection of intravenous catheter Impression: She had an infected left peripheral IV catheter which was removed yesterday. The tip was sent for culture which is pending. She is currently on oral Keflex with today being day 2. Qualifiers: Encounter type: initial encounter Qualified Code(s): T82.7XXA - Infection and inflammatory reaction due to other cardiac and vascular devices, implants and grafts, initial encounter (4) Early satiety Impression: Stable. She has been tolerating a pured diet. We will continue Remeron. (5) Hypertension Impression: Her blood pressure has been much better controlled on amlodipine. It has ranged from the 110s to 130s systolic. We will continue amlodipine and metoprolol. 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 Unfortunate, this appears to be the cause of her decline over the past few m [facility]. The plan is that we are hopeful to have her follow-up with her oncologist to discuss potential treatment options and if he does not want to proceed with treatment then we will likely consider hospice. Her oncologist is Dr. Pascual at [facility]. (7) Hyponatremia Impression: Stable. This was initially thought to be hypovolemic hyponatremia but she has not improved with IV fluids. Her sodium has remained stable and given she is edematous at this point, suspect this is hypervolemic hyponatremia. We have now placed on a fluid restriction as she has poor oral intake overall. We have also held off on diuresis because of her poor oral intake. We will continue to monitor her sodium closely. (8) Type 2 diabetes mellitus Impression: This is a new diagnosis this admission. Her A1c is 6.8%. We will not start her on any pharmacologic agents or a carb controlled diet given her poor appetite overall.
[2020-05-13] MEDS: INSULIN ASPART 300 UNIT/3 ML PEN SUBQ SCH ×4 (08:23→21:33)
[2020-05-13] MEDS: SODIUM CHLORIDE FLUSH 0.9% 10 ML SYRINGE IVP SCH ×2 (08:24→17:51)
[2020-05-13] MEDS: METOPROLOL TARTRATE 25 MG TABLET PO SCH ×2 (09:33→21:30)
[2020-05-13] MEDS: POTASSIUM CHLORIDE 20 MEQ/15 ML UDC PO SCH (09:34)
[2020-05-13] MEDS: DORZOLAMIDE/TIMOLOL OPHTH DROPS EACHEYE SCH ×2 (09:54→21:30)
[2020-05-13 16:31] LABS: CALCIUM 7.9 mg/dL (8.5-10.3); CREATININE 1.9 mg/dL (0.4-1.0)
[2020-05-13] MEDS ORDERED: LACTATED RINGERS 1,000 ML IV ONE (16:42)
[2020-05-13 18:40] LABS: GLUCOSE, URINE (UA) NEGATIVE (NEGATIVE); KETONES,URINE (UA) NEGATIVE (NEGATIVE); LEUKOCYTE ESTERASE, URINE NEGATIVE (NEGATIVE); NITRITE,URINE NEGATIVE (NEGATIVE); OCCULT BLOOD,URINE NEGATIVE (NEGATIVE); PROTEIN,URINE 30 mg/dL (NEGATIVE); UROBILINOGEN,URINE 0.2 (NORMAL) E.U./dL (NORMAL)
[2020-05-13 18:48] LABS: BILIRUBIN,URINE NEGATIVE (NEGATIVE); CLARITY,URINE HAZY (CLEAR); ICTOTEST,URINE NEGATIVE
[2020-05-13 18:54] LABS: AMORPHOUS SEDIMENT,UR Few /LPF; BACTERIA,URINE None Seen /HPF (None Seen); RBC,URINE None Seen /HPF (0-5); SQUAMOUS EPITHELIAL CELL,UR NONE SEEN (<= Few)
[2020-05-13] MEDS: SODIUM CHLORIDE FLUSH 0.9% 10 ML SYRINGE IVP PRN (20:42)
[2020-05-13] MEDS: MIRTAZAPINE 15 MG TABLET PO SCH (21:30)
[2020-05-13] MEDS: LATANOPROST 0.005% OPHTH DROPS EACHEYE SCH (21:35)
[2020-05-14] MEDS: SODIUM CHLORIDE FLUSH 0.9% 10 ML SYRINGE IVP SCH ×3 (00:24→17:19)
[2020-05-14] MEDS: cephALEXin 250 MG CAPSULE PO SCH ×3 (00:24→12:03)
[2020-05-14] MEDS: MIN OIL/DIMETHICON/COCONUT OIL 92 GM TUBE TOP PRN ×2 (00:31→04:22)
[2020-05-14] MEDS: ZINC OXIDE 20% OINT 30 GM TUBE TOP PRN ×2 (00:31→04:23)
[2020-05-14 05:06] LABS: BASOPHILS # (AUTO) 0.1 10^3/uL (0.0-0.1); BASOPHILS % (AUTO) 0.5 %; EOSINOPHILS # (AUTO) 0.1 10^3/uL (0.0-0.7); HGB - HEMOGLOBIN 9.1 g/dL (12.0-16.0); LYMPHOCYTES # (AUTO) 0.2 10^3/uL (1.5-3.5); LYMPHOCYTES % (AUTO) 1.1 %; MEAN CORPUSCULAR HEMOGLOBIN 26.6 pg (27.0-31.0); MEAN CORPUSCULAR HGB CONC 31.6 g/dL (32.0-36.0); MEAN CORPUSCULAR VOLUME 84.2 fL (81.0-99.0); MEAN PLATELET VOLUME 11.6 fL (7.9-10.8); MONOCYTES # (AUTO) 0.4 10^3/uL (0.0-1.0); MONOCYTES % (AUTO) 3.2 %; NEUTROPHILS # (AUTO) 12.4 10^3/uL (1.5-6.6); NEUTROPHILS % (AUTO) 93.7 %; PLT - PLATELET COUNT 186 10^3/uL (130-450); RED BLOOD COUNT 3.42 10^6/uL (4.20-5.40); RED CELL DISTRIBUTION WIDTH 15.5 % (12.0-15.0); WHITE BLOOD COUNT 13.2 x10^3/uL (4.8-10.8)
[2020-05-14 05:20] LABS: CALCIUM 7.7 mg/dL (8.5-10.3); CREATININE 1.8 mg/dL (0.4-1.0); PHOSPHORUS 3.5 mg/dL (2.5-4.6)
[2020-05-14 05:31] LABS: PLATELET ESTIMATE, MANUAL NORMAL (130-450,000) (NORMAL); PLATELET MORPHOLOGY NORMAL APPEARANCE (NORMAL); RBC MORPHOLOGY (MULTIPLE) NORMAL APPEARANCE (NORMAL)
[2020-05-14] MEDS: PANTOPRAZOLE 40 MG TABLET PO SCH (06:48)
[2020-05-14] MEDS: oxyCODONE 5 MG TABLET PO PRN ×2 (06:48→19:07)
[2020-05-14] MEDS: METOPROLOL TARTRATE 25 MG TABLET PO SCH ×2 (10:31→20:51)
[2020-05-14] MEDS: DORZOLAMIDE/TIMOLOL OPHTH DROPS EACHEYE SCH ×2 (10:33→20:49)
[2020-05-14] MEDS: INSULIN ASPART 300 UNIT/3 ML PEN SUBQ SCH ×4 (10:33→20:50)
[2020-05-14] MEDS: POTASSIUM CHLORIDE 20 MEQ/15 ML UDC PO SCH (10:34)
[2020-05-14] MEDS: ACETAMINOPHEN 325 MG TABLET PO PRN ×2 (12:02→20:50)
[2020-05-14] MEDS: SODIUM CHLORIDE FLUSH 0.9% 10 ML SYRINGE IVP PRN (12:04)
[2020-05-14] MEDS: ONDANSETRON 4 MG/2 ML VIAL IVP PRN (12:04)
--- NOTE | 2020-05-14 14:06 | PROVIDER PROGRESS NOTE ---
Assessment/Plan - Problem List (1) Acute kidney injury Assessment/Plan: Creatinine was 0.6 on admission, which worsened to 1.5 two days ago on 05/12/20, and creat was 1.9 yesterday and then 1.8 today. She received multiple liters of IV fluids without marked improvement in her renal function. She also has developed significant lower extremity edema. Renal ultrasound done 05/12/20 did not reveal any obstruction or hydronephrosis. Urine sodium was less than 12. Urinalysis from 2 days ago did not reveal any casts. Given her metastatic carcinoid tumor and liver metastasis, this could possibly be a component of liver dysfunction causing her acute kidney injury. Given her edema, IV fluids were stopped yesterday. She got iv albumin yesterday and albumen remains unchanged at 2.4. She may have ATN from the current "soft" BP and poor renal perfusion. The Amlodipine will be stopped and Metoprolol will get hold parameters. Follow BUN/creat daily. She may need transfer to higher level of care for nephrology evaluation. This was discussed with the patient and family and they are requesting [place] if necessary as that is where the daughter lives. (2) Labile hypertension Assessment/Plan: Blood pressure at admission was 199 systolic. The previous Hospitalist started Amlodipine at maximum dose. Her Metoprolol Tartrate home dose was also continued. With that combination her blood pressure improved to the 130s but over the past several days she has had "soft" BPs, with systolics of 100-110. Carcinoid tumor releases vasodilatory hormones which create this big fluctuation in blood pressure. Patient was told, with family at bedside, that she will need to have blood pressure checked daily and alternate her blood pressure medicatio ns based on daily blood pressure results, after discharge from here. This low blood pressure may be the cause of an ATN-type of renal failure, from hypoperfusion. Will stop the Amlodipine. Will also give hold parameters on the Metoprolol pills. (3) Acute urinary retention Assessment/Plan: IV fluids were discontinued yesterday and she still had good urine output. Today urine output declined and therefore the nurse did a bladder scan. The patient had 450 cc of residual in her urinary bladder at 3 PM. I reviewed the prior imaging of her renal system and there had been no hydronephrosis on ultrasound done 2 days ago. We will order straight cath. She may need a [place] if she has urinary tract obstruction, adding to the abnormally elevated creatinine. (4) Leukocytosis Assessment/Plan: This is improving and is now down to 13,000. She has remained afebrile. The only source of infection has been an infected left peripheral IV catheter which has since been removed. Her urinalysis has been unremarkable. C. difficile has been negative. Blood cultures have been negative. We will continue her on oral Keflex given the infected peripheral IV catheter. Monitor CBC daily to trend her white count (5) Infection of intravenous catheter Qualifiers: Encounter type: initial encounter Qualified Code(s): T82.7XXA - Infection and inflammatory reaction due to other cardiac and vascular devices, implants and grafts, initial encounter Assessment/Plan: She had an infected left peripheral IV catheter which was removed several days ago. The tip was sent for culture which grew only "skin contaminants". She is currently on oral Keflex with today being day 3. Will give a 7 day course. (6) Hyponatremia Assessment/Plan: Serum sodium improving slowly, daily. This was initially thought to be hypovolemic hyponatremia but she has not improved with IV saline fluids. She is slightly edematous in the feet at this point, therefore she now has hypervolemic hyponatremia. She was started a fluid restriction as she has poor oral intake overall. We have also held off on diuresis because of her poor oral intake. Continue to monitor her sodium closely. 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 Unfortunate, this appears to be the cause of her decline over the past few months. The plan to have her follow-up with her oncologist to discuss potential treatment options on May 21, and if he does not want to proceed with treatment then we will likely consider Hospice. Her oncologist is Dr. Pascual at [facility]. But, today the patient stated that the May 21 visit iss supposed to be with a new Oncologist who has new treatment options. The daughter requested that I reach out to Dr. Pascual to discuss her current clinical inpatient status and determine if a visit to [facility] is absolutely necessary. I will try to reach [facility] tomorrow. (8) Early satiety Assessment/Plan: Stable. She has been tolerating a pured diet. The etiology is the mass in the stomach. We will continue Remeron. (9) Moderate malnutrition Assessment/Plan: She has muscle wasting and loss of subcutaneous fat, has had nutritional intake of less than 50% of recommended for a week and weight loss of 7% in the past month. Her BMI is only 17.7. This is due to her poor appetite and early satiety from the carcinoid tumor impacting appetite and digestion. Dietary is involved. (10) Anemia Assessment/Plan: This is likely related to her malignancy and also hemodilutional. We will check B12 and folate levels and iron stores and replace if low. (11) Type 2 diabetes mellitus Assessment/Plan: This is a new diagnosis this admission. Her A1c is 6.8%. We will not start her on any pharmacologic agents or a carb controlled diet given her poor appetite overall. Keep her on sliding scale insulin coverage. (12) Weakness Assessment/Plan: Today was the first day she got out of bed and was evaluated for the first time by physical therapy. She sat in the chair for several hours and was extremely tired after this. I described to the patient and family in the room that she has been deconditioned from lying in bed so many days. She is likely a physical therapy candidate for rehab at a SNF or with Home Health, will await PT recommendations. (13) Metabolic alkalosis Assessment/Plan: Resolved - Current Meds Current Meds: Current Medications Generic Name Dose Route Start Last Admin Trade Name Freq PRN Reason Stop Dose Admin Acetaminophen 650 mg 05/08/20 08:51 05/14/20 12:02 Tylenol PO 650 mg Q4HR PRN Administration Pain 1 to 4 Carboxymethylcellulose 1 drops 05/08/20 18:16 05/14/20 10:34 Refresh 1% Ophth Drops EACHEYE 1 drops PRN PRN Administration Dry Eye Dorzolamide/Timolol 1 drops 05/09/20 09:00 05/14/20 10:33 Cosopt EACHEYE 1 drops BID LIT Administration Latanoprost 1 drops 05/09/20 21:00 05/13/20 21:35 Xalatan Ophth Drops EACHEYE 1 drops QPM LIT Administration Mineral Oil 1 applic 05/11/20 16:16 05/14/20 04:22 Cavilon TOP 1 applic BID PRN Administration reddened periarea Mirtazapine 15 mg 05/10/20 21:00 05/13/20 21:30 Remeron PO 15 mg QPM LIT Administration Multi-Ingredient Ointment 1 applic 05/12/20 16:00 05/14/20 04:23 Zinc Oxide TOP 1 applic PRN PRN Administration Skin Care Ondansetron HCl 4 mg 05/08/20 08:51 05/14/20 12:04 Zofran Inj IVP 4 mg Q6HR PRN Administration Nausea / Vomiting Oxycodone HCl 5 mg 05/11/20 00:19 05/14/20 06:48 Roxicodone PO 5 mg Q4HR PRN Administration PAIN Pantoprazole Sodium 40 mg 05/09/20 07:00 05/14/20 06:48 Protonix PO 40 mg QDAC LIT Administration Potassium Chloride 20 meq 05/12/20 09:00 05/14/20 10:34 PO 20 meq DAILY LIT Administration Prochlorperazine Edisylate 10 mg 05/08/20 19:33 05/10/20 00:10 Compazine Inj IVP 10 mg Q6HR PRN Administration Nausea / Vomiting Sodium Chloride 10 ml 05/08/20 08:51 05/14/20 12:04 Normal Saline Flush 0.9% IVP 10 ml PRN PRN Administration NEEDED PER PROVIDER ORDERS Sodium Chloride 10 ml 05/08/20 09:00 05/14/20 10:34 Normal Saline Flush 0.9% IVP 10 ml 0100,[id number],1700 LIT Administration - Lab Result Fish Bone Diagrams: 05/14/20 04:47 05/14/20 04:47 - Additional Planning My Orders: My Active Orders 05/14/20 10:32 Metoprolol Tartrate [Lopressor] 25 mg PO BID Subjective - Subjective Patient Reports: Resting Comfortably, Fatigue (She sat in a chair all day, this was her first day out of bed, she is tired and wants to nap.) Objective Vital Signs: Vital Signs - 24 hr 05/13/20 05/13/20 05/13/20 15:29 20:02 21:30 Temperature 36.6 C 36.6 C Heart Rate [ Activity] Heart Rate [ 96 94 Brachial] Heart Rate [ Sitting] Heart Rate [ Supine] Respiratory 20 16 Rate Blood Pressure 128/56 L Blood Pressure [Activity] Blood Pressure 123/56 L [Left Brachial artery] Blood Pressure 118/62 [Right Brachial artery] Blood Pressure [Sitting] Blood Pressure [Supine] O2 Saturation 94 93 05/14/20 05/14/20 05/14/20 00:30 04:23 07:35 Temperature 36.5 C 36.6 C 37.0 C Heart Rate [ Activity] Heart Rate [ 89 82 92 Brachial] Heart Rate [ Sitting] Heart Rate [ Supine] Respiratory 16 15 16 Rate Blood Pressure Blood Pressure [Activity] Blood Pressure 117/63 [Left Brachial artery] Blood Pressure 118/60 117/54 L [Right Brachial artery] Blood Pressure [Sitting] Blood Pressure [Supine] O2 Saturation 92 94 94 05/14/20 05/14/20 05/14/20 10:31 10:50 11:15 Temperature 36.9 C Heart Rate [ 91 Activity] Heart Rate [ 92 Brachial] Heart Rate [ 105 H Sitting] Heart Rate [ 92 Supine] Respiratory 18 Rate Blood Pressure 114/49 L Blood Pressure 111/56 L [Activity] Blood Pressure [Left Brachial artery] Blood Pressure 111/56 L [Right Brachial artery] Blood Pressure 118/65 [Sitting] Blood Pressure 114/49 L [Supine] O2 Saturation 92 Oxygen O2 Source Room air I&O (Last 24 Hrs): Intake and Output Totals x24h 05/12/20 05/13/20 05/14/20 23:59 23:59 23:59 Intake Total 400 2470 240 Output Total 20 1150 Balance 380 1320 240 General: Alert, Oriented x3, Other (Cachecdtic) HEENT: Mucous membr. moist/pink Neck: Supple, No JVD Neuro: Alert, Non Focal Cardiovascular: Regular rate Respiratory: No respiratory distress Abdomen: Soft Extremities: Other (1+ eema of legs) - Results Results: Laboratory Results WBC 13.2 x10^3/uL (4.8-10.8) H 05/14/20 04:47 RBC 3.42 10^6/uL (4.20-5.40) L 05/14/20 04:47 Hgb 9.1 g/dL (12.0-16.0) L 05/14/20 04:47 Hct 28.8 % (37.0-47.0) L 05/14/20 04:47 MCV 84.2 fL (81.0-99.0) 05/14/20 04:47 MCH 26.6 pg (27.0-31.0) L 05/14/20 04:47 MCHC 31.6 g/dL (32.0-36.0) L 05/14/20 04:47 RDW 15.5 % (12.0-15.0) H 05/14/20 04:47 Plt Count 186 10^3/uL (130-450) 05/14/20 04:47 MPV 11.6 fL (7.9-10.8) H 05/14/20 04:47 Neut # (Auto) 12.4 10^3/uL (1.5-6.6) H 05/14/20 04:47 Lymph # (Auto) 0.2 10^3/uL (1.5-3.5) L 05/14/20 04:47 Kendall # (Auto) 0.4 10^3/uL (0.0-1.0) 05/14/20 04:47 Eos # (Auto) 0.1 10^3/uL (0.0-0.7) 05/14/20 04:47 Baso # (Auto) 0.1 10^3/uL (0.0-0.1) 05/14/20 04:47 Absolute Nucleated RBC 0.00 x10^3/uL 05/14/20 04:47 Total Counted 100 05/13/20 05:22 Band Neuts % (Manual) 3 % (0-10) 05/13/20 05:22 Abnorm Lymph % (Manual) 0 % 05/13/20 05:22 Nucleated RBC % 0.0 /100WBC 05/14/20 04:47 Neutrophils # (Manual) 15.0 10^3/uL (1.5-6.6) H 05/13/20 05:22 Lymphocytes # (Manual) 0.5 10^3/uL (1.5-3.5) L 05/13/20 05:22 Monocytes # (Manual) 0.5 10^3/uL (0.0-1.0) 05/13/20 05:22 Eosinophils # (Manual) 0.0 10^3/uL (0-0.7) 05/13/20 05:22 Basophils # (Manual) 0.0 10^3/uL (0-0.1) 05/13/20 05:22 Differential Comment MANUAL DIFFERENTIAL 05/13/20 05:22 Manual Slide Review Indicated 05/14/20 04:47 WBC Morphology NORMAL APPEARANCE (NORMAL) 05/13/20 05:22 Platelet Estimate NORMAL (130-450,000) (NORMAL) 05/14/20 04:47 Platelet Morphology NORMAL APPEARANCE (NORMAL) 05/14/20 04:47 RBC Morph Micro Appear NORMAL APPEARANCE (NORMAL) 05/14/20 04:47 VBG pH 7.498 (7.31-7.41) H 05/08/20 09:15 VBG pCO2 48.3 mmHg (41-51) 05/08/20 09:15 VBG pO2 25.0 mmHg (25-47) 05/08/20 09:15 VBG HCO3 36.7 mmol/L (23-28) H 05/08/20 09:15 VBG Total CO2 38.1 mmol/L (24-29) H 05/08/20 09:15 VBG O2 Saturation 46.7 % (60-80) L 05/08/20 09:15 VBG Base Excess 11.9 mmol/L (-2 - +2) H 05/08/20 09:15 Sodium 134 mmol/L (135-145) L 05/14/20 04:47 Potassium 3.6 mmol/L (3.5-5.0) 05/14/20 04:47 Chloride 100 mmol/L (101-111) L 05/14/20 04:47 Carbon Dioxide 25 mmol/L (21-32) 05/14/20 04:47 Anion Gap 9.0 (6-13) 05/14/20 04:47 BUN 61 mg/dL (6-20) H 05/14/20 04:47 Creatinine 1.8 mg/dL (0.4-1.0) H 05/14/20 04:47 Estimated GFR (MDRD) 27 (>89) L 05/14/20 04:47 Glucose 226 mg/dL (70-100) H 05/14/20 04:47 Estimat Average Glucose 148 mg/dL (70-100) H 05/09/20 05:26 Hemoglobin A1c % 6.8 % (4.27-6.07) H 05/09/20 05:26 Calcium 7.7 mg/dL (8.5-10.3) L 05/14/20 04:47 Phosphorus 3.5 mg/dL (2.5-4.6) 05/14/20 04:47 Magnesium 2.0 mg/dL (1.7-2.8) 05/14/20 04:47 Total Bilirubin 0.8 mg/dL (0.2-1.0) 05/13/20 05:22 Direct Bilirubin 0.3 mg/dL (0.1-0.5) 05/13/20 05:22 AST 85 IU/L (10-42) H 05/13/20 05:22 ALT 35 IU/L (10-60) 05/13/20 05:22 Alkaline Phosphatase 123 IU/L (42-121) H 05/13/20 05:22 Total Protein 5.3 g/dL (6.7-8.2) L 05/13/20 05:22 Albumin 2.1 g/dL (3.2-5.5) L 05/13/20 05:22 Globulin 3.2 g/dL (2.1-4.2) 05/13/20 05:22 Albumin/Globulin Ratio 0.9 (1.0-2.2) L 05/08/20 06:40 Lipase 22 U/L (22-51) 05/08/20 06:40 Urine Color YELLOW 05/13/20 18:35 Urine Clarity HAZY (CLEAR) 05/13/20 18:35 Urine pH 5.0 PH (5.0-7.5) 05/13/20 18:35 Ur Specific [place] 1.020 (1.002-1.030) 05/13/20 18:35 Urine Protein 30 mg/dL (NEGATIVE) H 05/13/20 18:35 Urine Glucose (UA) NEGATIVE mg/dL (NEGATIVE) 05/13/20 18:35 Urine Ketones NEGATIVE mg/dL (NEGATIVE) 05/13/20 18:35 Urine Occult Blood NEGATIVE (NEGATIVE) 05/13/20 18:35 Urine Nitrite NEGATIVE (NEGATIVE) 05/13/20 18:35 Urine Bilirubin NEGATIVE (NEGATIVE) 05/13/20 18:35 Urine Urobilinogen 0.2 (NORMAL) E.U./dL (NORMAL) 05/13/20 18:35 Ur Leukocyte Esterase NEGATIVE (NEGATIVE) 05/13/20 18:35 Urine RBC None Seen /HPF (0-5) 05/13/20 18:35 Urine WBC 0-3 /HPF (0-5) 05/13/20 18:35 Ur Squamous Epith Cells NONE SEEN (<= Few) 05/13/20 18:35 Amorphous Sediment Few /LPF 05/13/20 18:35 Urine Bacteria None Seen /HPF (None Seen) 05/13/20 18:35 Ur Microscopic Review INDICATED 05/11/20 08:45 Urine Culture Comments NOT INDICATED 05/13/20 18:35 Urine Sodium < 12.0 mmol/L 05/13/20 18:35 Stl C. diff Tox B Gene NEGATIVE (NEGATIVE) 05/11/20 10:47
[2020-05-14] MEDS ORDERED: INSULIN ASPART 300 UNIT/3 ML PEN SUBQ SCH (17:00)
[2020-05-14] MEDS: LATANOPROST 0.005% OPHTH DROPS EACHEYE SCH (20:49)
[2020-05-14] MEDS: MIRTAZAPINE 15 MG TABLET PO SCH (20:50)
[2020-05-15] MEDS: ZINC OXIDE 20% OINT 30 GM TUBE TOP PRN ×2 (00:53→16:51)
[2020-05-15] MEDS: MIN OIL/DIMETHICON/COCONUT OIL 92 GM TUBE TOP PRN (00:53)
[2020-05-15] MEDS: SODIUM CHLORIDE FLUSH 0.9% 10 ML SYRINGE IVP SCH ×3 (00:54→16:50)
[2020-05-15 05:35] LABS: BASOPHILS % (AUTO) 0.5 %; EOSINOPHILS % (AUTO) 0.8 %; HGB - HEMOGLOBIN 9.1 g/dL (12.0-16.0); LYMPHOCYTES % (AUTO) 0.8 %; MEAN CORPUSCULAR HGB CONC 31.7 g/dL (32.0-36.0); MEAN CORPUSCULAR VOLUME 85.2 fL (81.0-99.0); MEAN PLATELET VOLUME 11.1 fL (7.9-10.8); MONOCYTES % (AUTO) 2.5 %; NEUTROPHILS % (AUTO) 94.2 %; PLT - PLATELET COUNT 210 10^3/uL (130-450); RED BLOOD COUNT 3.37 10^6/uL (4.20-5.40); RED CELL DISTRIBUTION WIDTH 15.7 % (12.0-15.0); WHITE BLOOD COUNT 16.4 x10^3/uL (4.8-10.8)
[2020-05-15 05:40] LABS: ABNORMAL LYMPHS % (MANUAL) 0 %
[2020-05-15 05:56] LABS: CALCIUM 7.5 mg/dL (8.5-10.3); CREATININE 2.1 mg/dL (0.4-1.0)
[2020-05-15 05:58] LABS: BAND NEUTROPHILS % (MANUAL) 9 %; LYMPHOCYTES # (MANUAL) 1.1 10^3/uL (1.5-3.5); LYMPHOCYTES % (MANUAL) 7 %; MONOCYTES # (MANUAL) 0.8 10^3/uL (0.0-1.0)
[2020-05-15 05:59] LABS: DIFFERENTIAL COMMENT MANUAL DIFFERENTIAL; PLATELET ESTIMATE, MANUAL NORMAL (130-450,000) (NORMAL); RBC MORPHOLOGY (MULTIPLE) NORMAL APPEARANCE (NORMAL)
[2020-05-15] MEDS: PANTOPRAZOLE 40 MG TABLET PO SCH (06:04)
[2020-05-15 06:16] LABS: FOLATE 9.73 ng/mL (5.90 - >24.8)
[2020-05-15] MEDS: INSULIN ASPART 300 UNIT/3 ML PEN SUBQ SCH ×5 (09:48→20:51)
[2020-05-15] MEDS: DORZOLAMIDE/TIMOLOL OPHTH DROPS EACHEYE SCH ×2 (09:51→20:54)
[2020-05-15] MEDS: METOPROLOL TARTRATE 25 MG TABLET PO SCH ×2 (10:38→20:50)
[2020-05-15] MEDS: POTASSIUM CHLORIDE 20 MEQ/15 ML UDC PO SCH (10:39)
[2020-05-15] MEDS: SODIUM CHLORIDE FLUSH 0.9% 10 ML SYRINGE IVP PRN ×3 (10:43→19:39)
[2020-05-15 11:37] LABS: BILIRUBIN,DIRECT 0.2 mg/dL (0.1-0.5); BILIRUBIN,TOTAL 0.5 mg/dL (0.2-1.0); TOTAL PROTEIN 5.1 g/dL (6.7-8.2)
[2020-05-15] MEDS: cephALEXin 250 MG CAPSULE PO SCH (11:57)
[2020-05-15] MEDS: DEXTROSE 5%-0.9% NACL 1,000 ML IV SCH ×2 (14:16→23:22)
[2020-05-15] MEDS: PROCHLORPERAZINE 10 MG/2 ML VIAL IVP PRN (15:20)
--- NOTE | 2020-05-15 15:43 | PROVIDER PROGRESS NOTE ---
Assessment/Plan - Problem List (1) Bloody feces Assessment/Plan: This new problem developed: Overnight the patient had 3 bloody BMs. She has slightly more abdominal pain today, is putting a warm pad on it. Patient believes that she might have bleeding hemorrhoids. Patient will require a GI work-up. I spent a long time discussing with the patient and her son at bedside options regarding a work-up which would include general surgery consult and endoscopy done here or transfer to hospital with higher level of care with GI work-up done elsewhere, where they could also do nephrology consult. The chosen hospital would be [facility], per the patient and family. Our warehouse manager was asked to determine what type of visitation is allowed at [facility] in [place] and it was learned that they allow one visitor, the same person throughout the entire hospitalization. This was discussed with the son who is at bedside. The son decided, along with calling his sister by phone, not to have the patient transferred, to go forward with the work-up here (and nephrology consultation over the phone if needed). General Surgery consult has been requested in the orders. I spoke to Dr. Rudi coto. He will see the patient for consult. He would like the patient to be started on clear liquids today and get bowel prep tonight and in the morning and he will do endoscopy tomorrow. We will follow her H/H every 12-24 hours. (2) Acute kidney injury Assessment/Plan: Worsened creat to 2.[address] regarding nephrology consult as above (in #1). Will resume low-dose of IV hydration. Avoid nephrotoxins. Pharmacy to adjust the Keflex dose. Follow BUN/creatinine daily. (3) Labile hypertension Assessment/Plan: She continues to have a low or soft blood pressure despite her amlodipine stopped several days ago and beta-laura has holding orders for parameters. The extremes in labile blood pressure could be from her carcinoid tumor releasing vasoactive substances intermittently. (4) Acute urinary retention Assessment/Plan: Yesterday she had over 250 cc residual and today once again. She may have abdominal discomfort due to bladder distention. I discussed inserting a Galloway with the patient and son, the risks and benefits, the patient agrees to have a Galloway placed. Will order Galloway catheter insertion, for hopefully just several days, for managing urinary retention. (5) Leukocytosis Assessment/Plan: Improving last several days then WBC increased today from 13 to 16. There is no fever. Continue Keflex for a 7 day course for iv site infection. Follow CBC daily. (6) Infection of intravenous catheter Qualifiers: Encounter type: initial encounter Qualified Code(s): T82.7XXA - Infection and inflammatory reaction due to other cardiac and vascular devices, implants and grafts, initial encounter Assessment/Plan: As above, on Keflex, dose to be adjust by Pharmacy for low GFR. (7) Hyponatremia Assessment/Plan: Improving Follow BMP daily. 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 Unfortunate, this appears to be the cause of her decline over the past few months. The plan to have her follow-up with her oncologist to discuss potential treatment options on May 21, and if he does not want to proceed with treatment then we will likely consider Hospice. Her oncologist is Dr. Pascual at [facility]. But the May 21 visit is supposed to be with a new Oncologist who has new treatment options. The daughter requested that I reach out to Dr. Pascual to discuss her current clinical inpatient status and determine if a visit to [facility] is absolutely necessary. I will try to reach [facility] when appropriate, the pt now has an active problem needing aggressive management. (9) Early satiety Assessment/Plan: Stable. She has been tolerating a pured diet. The etiology is the mass in the stomach. We will continue Remeron. (10) Moderate malnutrition Assessment/Plan: She has muscle wasting and loss of subcutaneous fat, has had nutritional intake of less than 50% of recommended for a week and weight loss of 7% in the past month. Her BMI is only 17.7. This is due to her poor appetite and early satiety from the carcinoid tumor impacting appetite and digestion. Dietary is involved. (11) Anemia Qualifiers: Anemia type: iron deficiency Assessment/Plan: B12 and folate levels are normal. Her iron stores are very low. We will begin oral iron once the endoscopies and work-up for problem #1 are complete. Follow H/H daily. Would plan a transfusion if hemoglobin under 8 with symptoms or if under 7. (12) Type 2 diabetes mellitus Assessment/Plan: This is a new diagnosis this admission. Her A1c is 6.8%. We did not start her on any pharmacologic agents or a carb controlled diet given her poor appetite overall. Keep her on sliding scale insulin coverage. (13) Weakness Assessment/Plan: 1 of the charge nurses reported to me that the first days of this hospitalization the patient was able to ambulate in the room and hallway (this was under a different provider). She has been weak following that and was only out of bed to chair for the first time yesterday, started with PT. PT may recommend SNF however family already is planning to bring her home to a daughter who lives in [place] and then have her get home PT probably. (14) Metabolic alkalosis Assessment/Plan: Resolved after iv hydration - Current Meds Current Meds: Current Medications Generic Name Dose Route Start Last Admin Trade Name Freq PRN Reason Stop Dose Admin Acetaminophen 650 mg 05/08/20 08:51 05/14/20 20:50 Tylenol PO 650 mg Q4HR PRN Administration Pain 1 to 4 Carboxymethylcellulose 1 drops 05/08/20 18:16 05/14/20 10:34 Refresh 1% Ophth Drops EACHEYE 1 drops PRN PRN Administration Dry Eye Cephalexin 250 mg 05/14/20 12:30 05/15/20 11:57 Keflex PO 250 mg Q24H LIT Administration Dorzolamide/Timolol 1 drops 05/09/20 09:00 05/15/20 09:51 Cosopt EACHEYE 1 drops BID LIT Administration Dextrose/Sodium Chloride 1,000 mls @ 125 mls/hr 05/15/20 14:00 05/15/20 14:16 D5ns IV 05/16/20 05:59 125 mls/hr .Q8H LIT Administration Insulin Aspart 2 - 10 unit 05/14/20 13:34 05/15/20 12:02 Novolog SUBQ 8 unit 0800,1200,1700,2100 LIT Administration Protocol Latanoprost 1 drops 05/09/20 21:00 05/14/20 20:49 Xalatan Ophth Drops EACHEYE 1 drops QPM LIT Administration Metoprolol Tartrate 25 mg 05/14/20 10:32 05/15/20 10:38 Lopressor PO Not Given BID LIT Mineral Oil 1 applic 05/11/20 16:16 05/15/20 00:53 Cavilon TOP 1 applic BID PRN Administration reddened periarea Mirtazapine 15 mg 05/10/20 21:00 05/14/20 20:50 Remeron PO 15 mg QPM LIT Administration Multi-Ingredient Ointment 1 applic 05/12/20 16:00 05/15/20 00:53 Zinc Oxide TOP 1 applic PRN PRN Administration Skin Care Ondansetron HCl 4 mg 05/08/20 08:51 05/14/20 12:04 Zofran Inj IVP 4 mg Q6HR PRN Administration Nausea / Vomiting Oxycodone HCl 5 mg 05/11/20 00:19 05/14/20 19:07 Roxicodone PO 5 mg Q4HR PRN Administration PAIN Pantoprazole Sodium 40 mg 05/09/20 07:00 05/15/20 06:04 Protonix PO 40 mg QDAC LIT Administration Potassium Chloride 20 meq 05/12/20 09:00 05/15/20 10:39 PO 20 meq DAILY LIT Administration Prochlorperazine Edisylate 10 mg 05/08/20 19:33 05/15/20 15:20 Compazine Inj IVP 10 mg Q6HR PRN Administration Nausea / Vomiting Sodium Chloride 10 ml 05/08/20 08:51 05/15/20 10:46 Normal Saline Flush 0.9% IVP 10 ml PRN PRN Administration NEEDED PER PROVIDER ORDERS Sodium Chloride 10 ml 05/08/20 09:00 05/15/20 09:53 Normal Saline Flush 0.9% IVP 10 ml 0100,0900,1700 LIT Administration - Lab Result Fish Bone Diagrams: 05/16/20 05:15 05/16/20 05:15 - Additional Planning My Orders: My Active Orders 05/14/20 16:26 Straight Catheter Insertion [RC] ONCE 05/15/20 Consult [General Surgery Consult] [CONS] Routine Evaluate and Treat OT [OT] Routine 05/15/20 Lunch DIET [Clear Liquid Diet] [DIET] 05/15/20 14:00 Dextrose 5%-0.9% NaCl [D5ns] 1,000 ml IV 125 mls/hr 05/15/20 14:53 Galloway Insertion [RC] QSHIFT 05/15/20 16:00 HEMOGLOBIN AND HEMATOCRIT [HEME] Timed 05/15/20 18:00 Sodium/Potassium/Mag Sulfates [Suprep Bowel Prep Kit] 177 ml PO 1800,0500 05/16/20 00:01 DIET [NPO except Meds at Midnight] [DIET] 05/16/20 05:00 BMP - BASIC METABOLIC PANEL [CHEM] DAILYLAB CBC - COMP BLD CT W/AUTO DIFF [HEME] DAILYLAB 05/17/20 05:00 BMP - BASIC METABOLIC PANEL [CHEM] DAILYLAB CBC - COMP BLD CT W/AUTO DIFF [HEME] DAILYLAB Subjective - Subjective Patient Reports: Abdominal Pain (She gets some nausea when she has abdominal pain, a warm pack over the abdomen helps, which she has on her now.) Objective Vital Signs: Vital Signs - 24 hr 05/14/20 05/14/20 05/14/20 15:42 20:41 20:51 Temperature 37 C 37 C Heart Rate [ 85 90 Brachial] Respiratory 18 18 Rate Blood Pressure 114/61 Blood Pressure 108/52 L 114/61 [Right Brachial artery] O2 Saturation 94 94 05/15/20 05/15/20 05/15/20 01:00 03:45 07:27 Temperature 36.5 C 36.4 C L 36.7 C Heart Rate [ 87 85 63 Brachial] Respiratory 16 16 16 Rate Blood Pressure Blood Pressure 112/56 L 115/57 L 115/52 L [Right Brachial artery] O2 Saturation 92 94 95 05/15/20 05/15/20 10:38 12:55 Temperature 36.9 C Heart Rate [ 90 Brachial] Respiratory 20 Rate Blood Pressure 115/52 L Blood Pressure 118/60 [Right Brachial artery] O2 Saturation 92 Oxygen O2 Source Room air I&O (Last 24 Hrs): Intake and Output Totals x24h 05/13/20 05/14/20 05/15/20 23:59 23:59 23:59 Intake Total 2470 640 320 Output Total 1150 1100 1050 Balance 1320 -460 -730 General: Alert, Oriented x3 HEENT: Mucous membr. moist/pink, Other (Poor dentition) Neck: Supple, No JVD Neuro: Alert, Non Focal Cardiovascular: Regular rate, No murmurs Respiratory: No respiratory distress, Breath sounds nml Abdomen: Normal bowel sounds, Soft Extremities: No edema - Results Results: Laboratory Results WBC 16.4 x10^3/uL (4.8-10.8) H 09/09/20 05:23 RBC 3.37 10^6/uL (4.20-5.40) L 05/15/20 05:23 Hgb 9.1 g/dL (12.0-16.0) L 05/15/20 05:23 Hct 28.7 % (37.0-47.0) L 05/15/20 05:23 MCV 85.2 fL (81.0-99.0) 05/15/20 05:23 MCH 27.0 pg (27.0-31.0) 05/15/20 05:23 MCHC 31.7 g/dL (32.0-36.0) L 05/15/20 05:23 RDW 15.7 % (12.0-15.0) H 05/15/20 05:23 Plt Count 210 10^3/uL (130-450) 05/15/20 05:23 MPV 11.1 fL (7.9-10.8) H 05/15/20 05:23 Neut # (Auto) Not Reportable 05/15/20 05:23 Lymph # (Auto) Not Reportable 05/15/20 05:23 [place] # (Auto) Not Reportable 05/15/20 05:23 Eos # (Auto) Not Reportable 05/15/20 05:23 Baso # (Auto) Not Reportable 05/15/20 05:23 Absolute Nucleated RBC Not Reportable 05/15/20 05:23 Total Counted 100 05/15/20 05:23 Band Neuts % (Manual) 9 % (0-10) 05/15/20 05:23 Abnorm Lymph % (Manual) 0 % 05/15/20 05:23 Nucleated RBC % Not Reportable 05/15/20 05:23 Neutrophils # (Manual) 14.4 10^3/uL (1.5-6.6) H 05/15/20 05:23 Lymphocytes # (Manual) 1.1 10^3/uL (1.5-3.5) L 05/15/20 05:23 Monocytes # (Manual) 0.8 10^3/uL (0.0-1.0) 05/15/20 05:23 Eosinophils # (Manual) 0.0 10^3/uL (0-0.7) 05/15/20 05:23 Basophils # (Manual) 0.0 10^3/uL (0-0.1) 05/15/20 05:23 Differential Comment MANUAL DIFFERENTIAL 05/15/20 05:23 Manual Slide Review Indicated 05/14/20 04:47 WBC Morphology NORMAL APPEARANCE (NORMAL) 05/13/20 05:22 Platelet Estimate NORMAL (130-450,000) (NORMAL) 05/15/20 05:23 Platelet Morphology NORMAL APPEARANCE (NORMAL) 05/14/20 04:47 RBC Morph Micro Appear NORMAL APPEARANCE (NORMAL) 05/15/20 05:23 VBG pH 7.498 (7.31-7.41) H 05/08/20 09:15 VBG pCO2 48.3 mmHg (41-51) 05/08/20 09:15 VBG pO2 25.0 mmHg (25-47) 05/08/20 09:15 VBG HCO3 36.7 mmol/L (23-28) H 05/08/20 09:15 VBG Total CO2 38.1 mmol/L (24-29) H 05/08/20 09:15 VBG O2 Saturation 46.7 % (60-80) L 05/08/20 09:15 VBG Base Excess 11.9 mmol/L (-2 - +2) H 05/08/20 09:15 Sodium 134 mmol/L (135-145) L 05/15/20 05:23 Potassium 3.9 mmol/L (3.5-5.0) 05/15/20 05:23 Chloride 101 mmol/L (101-111) 05/15/20 05:23 Carbon Dioxide 23 mmol/L (21-32) 05/15/20 05:23 Anion Gap 10.0 (6-13) 05/15/20 05:23 BUN 70 mg/dL (6-20) H 05/15/20 05:23 Creatinine 2.1 mg/dL (0.4-1.0) H 05/15/20 05:23 Estimated GFR (MDRD) 22 (>89) L 05/15/20 05:23 Glucose 258 mg/dL (70-100) H 05/15/20 05:23 Estimat Average Glucose 148 mg/dL (70-100) H 05/09/20 05:26 Hemoglobin A1c % 6.8 % (4.27-6.07) H 05/09/20 05:26 Calcium 7.5 mg/dL (8.5-10.3) L 05/15/20 05:23 Phosphorus 3.5 mg/dL (2.5-4.6) 05/14/20 04:47 Magnesium 2.0 mg/dL (1.7-2.8) 05/14/20 04:47 Iron 10 ug/dL (28-170) L 05/15/20 05:23 TIBC 146 ug/dL (250-450) L 05/15/20 05:23 % Saturation 7 % (20-50) L 05/15/20 05:23 Transferrin 104 mg/dL (192-382) L 05/15/20 05:23 Total Bilirubin 0.5 mg/dL (0.2-1.0) 05/15/20 05:23 Direct Bilirubin 0.2 mg/dL (0.1-0.5) 05/15/20 05:23 AST 45 IU/L (10-42) H 05/15/20 05:23 ALT 48 IU/L (10-60) 05/15/20 05:23 Alkaline Phosphatase 240 IU/L (42-121) H 05/15/20 05:23 Total Protein 5.1 g/dL (6.7-8.2) L 05/15/20 05:23 Albumin 2.0 g/dL (3.2-5.5) L 05/15/20 05:23 Globulin 3.1 g/dL (2.1-4.2) 05/15/20 05:23 Albumin/Globulin Ratio 0.9 (1.0-2.2) L 05/08/20 06:40 Lipase 22 U/L (22-51) 05/08/20 06:40 Vitamin B12 233 pg/mL (180-914) 05/15/20 05:23 Folate 9.73 ng/mL (5.90 - >24.8) 05/15/20 05:23 Urine Color YELLOW 05/13/20 18:35 Urine Clarity HAZY (CLEAR) 05/13/20 18:35 Urine pH 5.0 PH (5.0-7.5) 05/13/20 18:35 Ur Specific [place] 1.020 (1.002-1.030) 05/13/20 18:35 Urine Protein 30 mg/dL (NEGATIVE) H 05/13/20 18:35 Urine Glucose (UA) NEGATIVE mg/dL (NEGATIVE) 05/13/20 18:35 Urine Ketones NEGATIVE mg/dL (NEGATIVE) 05/13/20 18:35 Urine Occult Blood NEGATIVE (NEGATIVE) 05/13/20 18:35 Urine Nitrite NEGATIVE (NEGATIVE) 05/13/20 18:35 Urine Bilirubin NEGATIVE (NEGATIVE) 05/13/20 18:35 Urine Urobilinogen 0.2 (NORMAL) E.U./dL (NORMAL) 05/13/20 18:35 Ur Leukocyte Esterase NEGATIVE (NEGATIVE) 05/13/20 18:35 Urine RBC None Seen /HPF (0-5) 05/13/20 18:35 Urine WBC 0-3 /HPF (0-5) 05/13/20 18:35 Ur Squamous Epith Cells NONE SEEN (<= Few) 05/13/20 18:35 Amorphous Sediment Few /LPF 05/13/20 18:35 Urine Bacteria None Seen /HPF (None Seen) 05/13/20 18:35 Ur Microscopic Review INDICATED 05/11/20 08:45 Urine Culture Comments NOT INDICATED 05/13/20 18:35 Urine Sodium < 12.0 mmol/L 05/13/20 18:35 Stl C. diff Tox B Gene NEGATIVE (NEGATIVE) 05/11/20 10:47
[2020-05-15 16:08] LABS: HGB - HEMOGLOBIN 9.4 g/dL (12.0-16.0)
[2020-05-15] MEDS: SODIUM/POTASSIUM/MAG SULFATES 354 ML PREP KIT PO SCH (18:20)
[2020-05-15] MEDS: ONDANSETRON 4 MG/2 ML VIAL IVP PRN (19:39)
[2020-05-15] MEDS: MIRTAZAPINE 15 MG TABLET PO SCH (20:49)
[2020-05-15] MEDS: oxyCODONE 5 MG TABLET PO PRN (20:49)
[2020-05-15] MEDS: LATANOPROST 0.005% OPHTH DROPS EACHEYE SCH (20:55)
[2020-05-16] MEDS: ZINC OXIDE 20% OINT 30 GM TUBE TOP PRN
[2020-05-16] MEDS: MIN OIL/DIMETHICON/COCONUT OIL 92 GM TUBE TOP PRN
[2020-05-16] MEDS: SODIUM CHLORIDE FLUSH 0.9% 10 ML SYRINGE IVP SCH ×3 (00:01→18:38)
[2020-05-16] MEDS: oxyCODONE 5 MG TABLET PO PRN ×2 (02:58→07:41)
[2020-05-16] MEDS: SODIUM/POTASSIUM/MAG SULFATES 354 ML PREP KIT PO SCH (03:20)
[2020-05-16] MEDS: ONDANSETRON 4 MG/2 ML VIAL IVP PRN ×2 (03:30→10:39)
[2020-05-16 05:44] LABS: BASOPHILS % (AUTO) 0.4 %; EOSINOPHILS % (AUTO) 0.2 %; HGB - HEMOGLOBIN 8.8 g/dL (12.0-16.0); LYMPHOCYTES % (AUTO) 1.2 %; MEAN CORPUSCULAR HEMOGLOBIN 26.3 pg (27.0-31.0); MEAN CORPUSCULAR HGB CONC 30.1 g/dL (32.0-36.0); MEAN CORPUSCULAR VOLUME 87.2 fL (81.0-99.0); MEAN PLATELET VOLUME 11.4 fL (7.9-10.8); MONOCYTES % (AUTO) 2.4 %; NEUTROPHILS % (AUTO) 94.8 %; PLT - PLATELET COUNT 257 10^3/uL (130-450); RED BLOOD COUNT 3.35 10^6/uL (4.20-5.40); RED CELL DISTRIBUTION WIDTH 15.8 % (12.0-15.0); WHITE BLOOD COUNT 18.1 x10^3/uL (4.8-10.8)
[2020-05-16 05:51] LABS: ABNORMAL LYMPHS % (MANUAL) 0 %
[2020-05-16 05:55] LABS: CALCIUM 7.7 mg/dL (8.5-10.3); CREATININE 1.8 mg/dL (0.4-1.0)
[2020-05-16 06:12] LABS: BAND NEUTROPHILS % (MANUAL) 21 %; DIFFERENTIAL COMMENT MANUAL DIFFERENTIAL; LYMPHOCYTES # (MANUAL) 0.2 10^3/uL (1.5-3.5); LYMPHOCYTES % (MANUAL) 1 %; MONOCYTES # (MANUAL) 0.5 10^3/uL (0.0-1.0); PLATELET ESTIMATE, MANUAL NORMAL (130-450,000) (NORMAL); RBC MORPHOLOGY (MULTIPLE) NORMAL APPEARANCE (NORMAL)
[2020-05-16] MEDS: PANTOPRAZOLE 40 MG TABLET PO SCH (06:48)
[2020-05-16] MEDS: ACETAMINOPHEN 325 MG TABLET PO PRN ×2 (06:48→11:56)
[2020-05-16] MEDS: METOPROLOL TARTRATE 25 MG TABLET PO SCH (08:41)
[2020-05-16] MEDS: INSULIN REGULAR HUMAN 300 UNIT/3 ML VIAL SUBQ SCH ×3 (08:44→18:11)
[2020-05-16] MEDS: DORZOLAMIDE/TIMOLOL OPHTH DROPS EACHEYE SCH (08:49)
[2020-05-16] MEDS: POTASSIUM CHLORIDE 20 MEQ/15 ML UDC PO SCH (11:46)
[2020-05-16] MEDS: cephALEXin 250 MG CAPSULE PO SCH (11:56)
--- NOTE | 2020-05-16 12:40 | CONSULTATION NOTE ---
Referring Provider Name of Referring Provider:: Dr. Joyce Zarate Consult Date: 05/15/20 Chief Complaint - Chief Complaint Chief Complaint: Hematochezia History of Present Illness - History of Present Illness HPI Comment/Other: 85-year-old female who has known history of metastatic carcinoid treated with octreotide who was admitted with lethargy last week. She was noted for multiple complicating factors including concern for sepsis, with labile hypertensive episodes, acute on chronic renal failure, and anemia with bright red blood per rectum. She is significantly debilitated with severe protein malnutrition and early satiety. Consult was called to evaluate for possible gastrointestinal bleed in setting of hematochezia and known metastatic gastrointestinal malignancy. Patient has been reluctant to pursue any further therapeutics as it relates to chemo and radio therapies because of associated risk profiles. She reports elevated function and is independent prior to admission. History - Past Medical History Cardiovascular: reports: Hypertension Respiratory: reports: None Neuro: reports: None Endocrine/Autoimmune: reports: Other GI: reports: None IRON INSTALLER: reports: None : reports: Incontinence HEENT: reports: Glaucoma Psych: reports: None Musculoskeletal: reports: Other Derm: reports: None MRSA Hx?: No Other Past Medical History: Pt. reports being independent w/all activity; drives to her appointments in [place]. - Past Surgical History General: reports: Cholecystectomy, Appendectomy /IRON INSTALLER: reports: Hysterectomy HEENT: reports: Tonsil/Adenoidectomy - Family & Social History Family History Comment/Other: She reports no significant family history. She has no siblings. Living arrangement: At home Living Situation: Alone Social History Notes: She lives at home alone. She is a non-smoker and has never smoked. She denies any alcohol use[place], [place]. - POLST Patient has POLST: No Meds/Allgy - Home Medications Home Medications: Ambulatory Orders Medication Instructions Recorded Confirmed Latanoprost 0.005% Ophth Drops 1 drops OPTH QPM 03/06/13 05/08/20 [Xalatan] Lisinopril [Prinivil] 5 mg PO DAILY 03/06/13 05/08/20 Cholecalciferol (Vitamin D3) 2,000 unit PO DAILY 05/08/20 05/08/20 [Vitamin D3] Dorzolamide HCl/Timolol Maleat 1 drops EACHEYE BID 05/08/20 05/08/20 [Dorzolamide-Timolol Eye Drops] Ibuprofen [Ibu-200] 200 mg PO Q6H PRN 05/08/20 05/08/20 Loperamide [Imodium] 2 mg PO PRN PRN 05/08/20 05/08/20 Metoprolol Tartrate 25 mg ORAL BID 05/08/20 05/08/20 Octreotide Acetate,Mi-Spheres 30 mg IM ONCE 05/08/20 05/08/20 [Sandostatin [place]] - Allergies Allergies/Adverse Reactions: Allergies Allergy/AdvReac Type Severity Reaction Status Date / Time azithromycin [From Zithromax] Allergy Intermediate Emesis Verified 05/08/20 07:20 Sulfa (Sulfonamide AdvReac Severe Hives Verified 05/08/20 07:20 Antibiotics) Review of Systems - Constitutional Constitutional: reports: Fatigue, Weakness, Poor appetite, Weight loss - Ears, Nose & Throat Ears, Nose & Throat: reports: Ear pain - Cardiovascular Cariovascular: reports: Lightheadedness - Respiratory Respiratory: denies: Cough, Sputum production, Wheezing, Snoring, Hemoptysis, O rthopnea - Gastrointestinal Gastrointestinal: reports: Abdominal pain, Abdominal distention, Black stools, Bloody stools, Nausea, Vomiting - Musculoskeletal Musculoskeletal: reports: Muscle pain, Muscle aches - Neurological Neurological: reports: General weakness - Psychiatric Psychiatric: reports: Depression - Hematologic/Lymphatic Hematologic/Lymphatic: reports: Anemia Exam - Vital Signs Vital Signs: Vital Signs x48h Temp Pulse Resp BP BP BP Pulse Ox 05/16/20 08:41 119/64 05/16/20 07:25 37.1 C 82 20 119/64 92 05/16/20 05:00 37.1 C 93 18 118/56 L 93 - Physical Exam General Appearance: positive: Alert, Mild distress Eyes Bilateral: positive: PERRL, EOMI ENT: positive: ENT inspection nml Neck: positive: Nml inspection Respiratory: positive: Chest non-tender, No respiratory distress, Breath sounds nml. negative: Wheezes, Rales, Rhonchi Cardiovascular: positive: Regular rate & rhythm Abdomen: positive: Tenderness, Other (Distended, no rebound, no guarding, tympanitic.On this finding recommended discontinue bowel prep given anticipated intolerance.). negative: Guarding, Rebound Skin: positive: Color nml Extremities: positive: Non-tender, Full ROM, Nml appearance Neurologic/Psychiatric: positive: Oriented x3, CN's nml (2-12), Motor nml, Sensation nml Conclusion and Plan - Lab Results Microbiology Results 05/10/20 13:10 Blood - Right Hand Blood Culture - Final NO GROWTH AFTER 5 DAYS 05/10/20 13:05 Blood - Right Arm Blood Culture - Final NO GROWTH AFTER 5 DAYS 05/12/20 10:40 Catheter Tip - Other Catheter Tip Culture - Final Laboratory Results 05/16/20 05:15: Sodium 138, Potassium 3.5, Chloride 105, Carbon Dioxide 23, Anion Gap 10.0, BUN 66 H, Creatinine 1.8 H, Estimated GFR (MDRD) 27 L, Glucose 350 H, Calcium 7.7 L 05/16/20 05:15: WBC 18.1 H, RBC 3.35 L, Hgb 8.8 L, Hct 29.2 L, MCV 87.2, MCH 26.3 L, MCHC 30.1 L, RDW 15.8 H, Plt Count 257, MPV 11.4 H, Neut # (Auto) Not Reportable, Lymph # (Auto) Not Reportable, [place] # (Auto) Not Reportable, Eos # (Auto) Not Reportable, Baso # (Auto) Not Reportable, Absolute Nucleated RBC Not Reportable, Total Counted 100, Band Neuts % (Manual) 21 H, Abnorm Lymph % (Manual) 0, Nucleated RBC % Not Reportable, Neutrophils # (Manual) 17.4 H, Lymphocytes # (Manual) 0.2 L, Monocytes # (Manual) 0.5, Eosinophils # (Manual) 0.0, Basophils # (Manual) 0.0, Differential Comment MANUAL DIFFERENTIAL, Platelet Estimate NORMAL (130-450,000), RBC Morph Micro Appear NORMAL APPEARANCE 05/15/20 15:55: Hgb 9.4 L, Hct 29.4 L 05/15/20 05:23: Total Bilirubin 0.5, Direct Bilirubin 0.2, AST 45 H, ALT 48, Alkaline Phosphatase 240 H, Total Protein 5.1 L, Albumin 2.0 L, Globulin 3.1 05/15/20 05:23: Vitamin B12 233, Folate 9.73 05/15/20 05:23: Sodium 134 L, Potassium 3.9, Chloride 101, Carbon Dioxide 23, Anion Gap 10.0, BUN 70 H, Creatinine 2.1 H, Estimated GFR (MDRD) 22 L, Glucose 258 H, Calcium 7.5 L, Iron 10 L, TIBC 146 L, % Saturation 7 L, Transferrin 104 L 05/15/20 05:23: WBC 16.4 H, RBC 3.37 L, Hgb 9.1 L, Hct 28.7 L, MCV 85.2, MCH 27.0, MCHC 31.7 L, RDW 15.7 H, Plt Count 210, MPV 11.1 H, Neut # (Auto) Not Reportable, Lymph # (Auto) Not Reportable, [place] # (Auto) Not Reportable, Eos # (Auto) Not Reportable, Baso # (Auto) Not Reportable, Absolute Nucleated RBC Not Reportable, Total Counted 100, Band Neuts % (Manual) 9, Abnorm Lymph % (Manual) 0, Nucleated RBC % Not Reportable, Neutrophils # (Manual) 14.4 H, Lymphocytes # (Manual) 1.1 L, Monocytes # (Manual) 0.8, Eosinophils # (Manual) 0.0, Basophils # (Manual) 0.0, Differential Comment MANUAL DIFFERENTIAL, Platelet Estimate NORMAL (130-450,000), RBC Morph Micro Appear NORMAL APPEARANCE - Diagnosis Diagnosis: 1. Gastrointestinal hemorrhage. 2. Acute renal failure. 3. Metastatic carcinoid. 4. Severe protein malnutrition. 5. Failure to thrive. 6. Anorexia - Plan Plan: 85-year-old with gastrointestinal bleed associated anemia, has not been transfused. Known metastatic carcinoid. Currently on octreotide. Severe debility. Plan upper endoscopy as well as follows: 1. Continue care for multiple comorbid states with hospitalist service 2. Plan upper endoscopy to evaluate source, will consider colonoscopy however given urgency of intervention will defer bowel prep at this time 3. Defer simultaneous colonoscopy at this time given intolerance of prep. 4. Aggressive resuscitation 5. May be candidate for parenteral nutrition given severe protein malnutrition 6. Bowel rest and defer bowel prep at this time given concerns for distention 7. PPI infusion and consider Carafate pending results
[2020-05-16] MEDS ORDERED: SODIUM CHLORIDE 0.9% 1,000 ML IV SCH (15:00)
--- NOTE | 2020-05-16 15:13 | ANESTHESIA ---
Pre-Anesthesia VS, & Labs - Diagnosis Diagnosis 1. Gastrointestinal hemorrhage 2. Acute renal failure 3. Metastatic carcinoid 4. Severe protein malnutrition 5. Failure to thrive 6. Anorexia - Procedure EGD Vital Signs: Temp Pulse Resp BP Pulse Ox 37.0 C 90 16 99/59 L 93 05/16/20 12:38 05/16/20 12:38 05/16/20 12:38 05/16/20 12:38 05/16/20 12:38 Height 4 ft 10 in Weight (kg) 38.5 kg Body Mass Index 17.7 - NPO >8 hours - Is Patient ?: No - Lab Results Current Lab Results: Laboratory Tests 05/16/20 05:15: Sodium 138, Potassium 3.5, Chloride 105, Carbon Dioxide 23, Anion Gap 10.0, BUN 66 H, Creatinine 1.8 H, Estimated GFR (MDRD) 27 L, Glucose 350 H, Calcium 7.7 L 05/16/20 05:15: WBC 18.1 H, RBC 3.35 L, Hgb 8.8 L, Hct 29.2 L, MCV 87.2, MCH 26.3 L, MCHC 30.1 L, RDW 15.8 H, Plt Count 257, MPV 11.4 H, Neut # (Auto) Not Reportable, Lymph # (Auto) Not Reportable, [place] # (Auto) Not Reportable, Eos # (Auto) Not Reportable, Baso # (Auto) Not Reportable, Absolute Nucleated RBC Not Reportable, Total Counted 100, Band Neuts % (Manual) 21 H, Abnorm Lymph % (Manual) 0, Nucleated RBC % Not Reportable, Neutrophils # (Manual) 17.4 H, Lymphocytes # (Manual) 0.2 L, Monocytes # (Manual) 0.5, Eosinophils # (Manual) 0.0, Basophils # (Manual) 0.0, Differential Comment MANUAL DIFFERENTIAL, Platelet Estimate NORMAL (130-450,000), RBC Morph Micro Appear NORMAL APPEARANCE 05/15/20 15:55: Hgb 9.4 L, Hct 29.4 L 05/15/20 05:23: Total Bilirubin 0.5, Direct Bilirubin 0.2, AST 45 H, ALT 48, Alkaline Phosphatase 240 H, Total Protein 5.1 L, Albumin 2.0 L, Globulin 3.1 05/15/20 05:23: Vitamin B12 233, Folate 9.73 05/15/20 05:23: Sodium 134 L, Potassium 3.9, Chloride 101, Carbon Dioxide 23, Anion Gap 10.0, BUN 70 H, Creatinine 2.1 H, Estimated GFR (MDRD) 22 L, Glucose 258 H, Calcium 7.5 L, Iron 10 L, TIBC 146 L, % Saturation 7 L, Transferrin 104 L 05/15/20 05:23: WBC 16.4 H, RBC 3.37 L, Hgb 9.1 L, Hct 28.7 L, MCV 85.2, MCH 27.0, MCHC 31.7 L, RDW 15.7 H, Plt Count 210, MPV 11.1 H, Neut # (Auto) Not Reportable, Lymph # (Auto) Not Reportable, [place] # (Auto) Not Reportable, Eos # (Auto) Not Reportable, Baso # (Auto) Not Reportable, Absolute Nucleated RBC Not Reportable, Total Counted 100, Band Neuts % (Manual) 9, Abnorm Lymph % (Manual) 0, Nucleated RBC % Not Reportable, Neutrophils # (Manual) 14.4 H, Lymphocytes # (Manual) 1.1 L, Monocytes # (Manual) 0.8, Eosinophils # (Manual) 0.0, Basophils # (Manual) 0.0, Differential Comment MANUAL DIFFERENTIAL, Platelet Estimate NORMAL (130-450,000), RBC Morph Micro Appear NORMAL APPEARANCE 05/14/20 04:47: Sodium 134 L, Potassium 3.6, Chloride 100 L, Carbon Dioxide 25, Anion Gap 9.0, BUN 61 H, Creatinine 1.8 H, Estimated GFR (MDRD) 27 L, Glucose 226 H, Calcium 7.7 L, Phosphorus 3.5, Magnesium 2.0 05/14/20 04:47: WBC 13.2 H, RBC 3.42 L, Hgb 9.1 L, Hct 28.8 L, MCV 84.2, MCH 26.6 L, MCHC 31.6 L, RDW 15.5 H, Plt Count 186, MPV 11.6 H, Neut # (Auto) 12.4 H , Lymph # (Auto) 0.2 L, [place] # (Auto) 0.4, Eos # (Auto) 0.1, Baso # (Auto) 0.1, Absolute Nucleated RBC 0.00, Nucleated RBC % 0.0, Manual Slide Review Indicated, Platelet Estimate NORMAL (130-450,000), Platelet Morphology NORMAL APPEARANCE, RBC Morph Micro Appear NORMAL APPEARANCE 05/13/20 16:11: Sodium 132 L, Potassium 4.1, Chloride 97 L, Carbon Dioxide 24, Anion Gap 11.0, BUN 60 H, Creatinine 1.9 H, Estimated GFR (MDRD) 25 L, Glucose 290 H, Calcium 7.9 L 05/13/20 05:22: Sodium 129 L, Potassium 4.0, Chloride 94 L, Carbon Dioxide 23, Anion Gap 12.0, BUN 54 H, Creatinine 1.5 H, Estimated GFR (MDRD) 33 L, Glucose 152 H, Calcium 7.8 L, Phosphorus 3.5, Magnesium 1.9, Total Bilirubin 0.8, Direct Bilirubin 0.3, AST 85 H, ALT 35, Alkaline Phosphatase 123 H, Total Protein 5.3 L , Albumin 2.1 L, Globulin 3.2 05/13/20 05:22: WBC 16.0 H, RBC 4.05 L, Hgb 10.9 L, Hct 34.2 L, MCV 84.4, MCH 26.9 L, MCHC 31.9 L, RDW 15.2 H, Plt Count 245, MPV 11.9 H, Neut # (Auto) Not Reportable, Lymph # (Auto) Not Reportable, [place] # (Auto) Not Reportable, Eos # (Auto) Not Reportable, Baso # (Auto) Not Reportable, Absolute Nucleated RBC Not Reportable, Total Counted 100, Band Neuts % (Manual) 3, Abnorm Lymph % (Manual) 0, Nucleated RBC % Not Reportable, Neutrophils # (Manual) 15.0 H, Lymphocytes # (Manual) 0.5 L, Monocytes # (Manual) 0.5, Eosinophils # (Manual) 0.0, Basophils # (Manual) 0.0, Differential Comment MANUAL DIFFERENTIAL, WBC Morphology NORMAL APPEARANCE, Platelet Estimate NORMAL (130-450,000), Platelet Morphology NORMAL APPEARANCE, RBC Morph Micro Appear NORMAL APPEARANCE 05/12/20 19:55: Sodium 127 L, Potassium 4.3, Chloride 92 L, Carbon Dioxide 23, Anion Gap 12.0, BUN 50 H, Creatinine 1.5 H, Estimated GFR (MDRD) 33 L, Glucose 219 H, Calcium 8.0 L 05/12/20 19:55: Hgb 11.6 L, Hct 36.5 L 05/12/20 05:20: Sodium 128 L, Potassium 4.2, Chloride 92 L, Carbon Dioxide 24, Anion Gap 12.0, BUN 43 H, Creatinine 1.1 H, Estimated GFR (MDRD) 47 L, Glucose 176 H, Calcium 8.2 L, Phosphorus 2.1 L, Magnesium 1.9 05/12/20 05:20: WBC 19.0 H, RBC 4.18 L, Hgb 11.4 L, Hct 34.5 L, MCV 82.5, MCH 27.3, MCHC 33.0, RDW 14.8, Plt Count 212, MPV 12.6 H, Neut # (Auto) 17.8 H, Lymph # (Auto) 0.2 L, [place] # (Auto) 0.7, Eos # (Auto) 0.0, Baso # (Auto) 0.0, Absolute Nucleated RBC 0.00, Nucleated RBC % 0.0 05/11/20 05:30: WBC 23.3 H, RBC 4.50, Hgb 12.0, Hct 37.2, MCV 82.7, MCH 26.7 L, MCHC 32.3, RDW 14.7, Plt Count 170, MPV 12.4 H, Neut # (Auto) 21.4 H, Lymph # (Auto) 0.2 L, [place] # (Auto) 1.2 H, Eos # (Auto) 0.0, Baso # (Auto) 0.1, Absolute Nucleated RBC 0.00, Nucleated RBC % 0.0, Manual Slide Review Indicated, Platelet Estimate NORMAL (130-450,000), Platelet Morphology NORMAL APPEARANCE, RBC Morph Micro Appear NORMAL APPEARANCE 05/11/20 05:13: Sodium 131 L, Potassium 3.6, Chloride 93 L, Carbon Dioxide 26, Anion Gap 12.0, BUN 40 H, Creatinine 1.0, Estimated GFR (MDRD) 53 L, Glucose 144 H, Calcium 8.3 L 05/10/20 05:31: Sodium 131 L, Potassium 3.0 L, Chloride 91 L, Carbon Dioxide 27, Anion Gap 13.0, BUN 36 H, Creatinine 0.9, Estimated GFR (MDRD) 60 L, Glucose 154 H, Calcium 8.3 L, Phosphorus 2.6, Magnesium 1.9 05/10/20 05:31: WBC 18.7 H, RBC 4.57, Hgb 12.1, Hct 37.7, MCV 82.5, MCH 26.5 L, MCHC 32.1, RDW 14.6, Plt Count 189, MPV 12.5 H, Neut # (Auto) 17.1 H, Lymph # (Auto) 0.2 L, [place] # (Auto) 1.3 H, Eos # (Auto) 0.0, Baso # (Auto) 0.0, Absolute Nucleated RBC 0.00, Nucleated RBC % 0.0 05/09/20 05:26: Estimat Average Glucose 148 H, Hemoglobin A1c % 6.8 H 05/09/20 05:26: Sodium 129 L, Potassium 3.1 L, Chloride 88 L, Carbon Dioxide 29, Anion Gap 12.0, BUN 22 H, Creatinine 0.7, Estimated GFR (MDRD) 80 L, Glucose 183 H, Calcium 8.0 L, Phosphorus 2.0 L, Magnesium 1.7 05/09/20 05:26: WBC 16.9 H, RBC 4.51, Hgb 12.1, Hct 37.8, MCV 83.8, MCH 26.8 L, MCHC 32.0, RDW 14.3, Plt Count 192, MPV 12.4 H, Neut # (Auto) 15.5 H, Lymph # (A uto) 0.2 L, [place] # (Auto) 1.1 H, Eos # (Auto) 0.0, Baso # (Auto) 0.0, Absolute Nucleated RBC 0.00, Nucleated RBC % 0.0 05/08/20 17:55: Sodium 130 L, Potassium 2.2 L*, Chloride 81 L, Carbon Dioxide 33 H, Anion Gap 16.0 H, BUN 14, Creatinine 0.6, Estimated GFR (MDRD) 95, Glucose 162 H, Calcium 7.8 L 05/08/20 09:15: VBG pH 7.498 H, VBG pCO2 48.3, VBG pO2 25.0, VBG HCO3 36.7 H, VBG Total CO2 38.1 H, VBG O2 Saturation 46.7 L, VBG Base Excess 11.9 H 05/08/20 09:15: WBC 15.5 H, RBC 4.07 L, Hgb 11.1 L, Hct 34.8 L, MCV 85.5, MCH 27.3, MCHC 31.9 L, RDW 13.9, Plt Count 186, MPV 11.9 H, Neut # (Auto) 14.1 H, Lymph # (Auto) 0.2 L, [place] # (Auto) 1.1 H, Eos # (Auto) 0.0, Baso # (Auto) 0.0, Absolute Nucleated RBC 0.00, Nucleated RBC % 0.0 05/08/20 09:15: Sodium 131 L, Potassium 2.1 L*, Chloride 82 L, Carbon Dioxide 38 H, Anion Gap 11.0, BUN 15, Creatinine 0.6, Estimated GFR (MDRD) 95, Glucose 145 H, Calcium 7.1 L 05/08/20 06:40: Sodium 131 L, Potassium 2.1 L*, Chloride 80 L*, Carbon Dioxide 39 H*, Anion Gap 12.0, BUN 18, Creatinine 0.7, Estimated GFR (MDRD) 80 L, Glucose 172 H, Calcium 7.8 L, Phosphorus 2.2 L, Magnesium 1.8, Total Bilirubin 1.0, AST 39, ALT 28, Alkaline Phosphatase 120, Total Protein 6.2 L, Albumin 3.0 L, Globulin 3.2, Albumin/Globulin Ratio 0.9 L, Lipase 22 05/08/20 06:40: WBC 15.0 H, RBC 4.58, Hgb 12.3, Hct 38.1, MCV 83.2, MCH 26.9 L, MCHC 32.3, RDW 14.0, Plt Count 204, MPV 11.7 H, Neut # (Auto) 13.6 H, Lymph # (Auto) 0.2 L, [place] # (Auto) 1.1 H, Eos # (Auto) 0.0, Baso # (Auto) 0.0, Absolute Nucleated RBC 0.00, Nucleated RBC % 0.0 Fish Bones: 05/16/20 05:15 05/16/20 05:15 Home Medications and Allergies Home Medications: Ambulatory Orders Cholecalciferol (Vitamin D3) [Vitamin D3] 2,000 unit PO DAILY 05/08/20 Dorzolamide HCl/Timolol Maleat [Dorzolamide-Timolol Eye Drops] 1 drops EACHEYE BID 05/08/20 Ibuprofen [Ibu-200] 200 mg PO Q6H PRN 05/08/20 Loperamide [Imodium] 2 mg PO PRN PRN 05/08/20 Metoprolol Tartrate 25 mg ORAL BID 05/08/20 Octreotide Acetate,Mi-Spheres [Sandostatin Lar Depot] 30 mg IM ONCE 05/08/20 Active Medications Acetaminophen (Tylenol) 650 mg PO Q4HR PRN PRN Reason: Pain 1 to 4 Last Admin: 05/16/20 11:56 Dose: 650 mg Documented by: Carboxymethylcellulose (Refresh 1% Ophth Drops) 1 drops EACHEYE PRN PRN PRN Reason: Dry Eye Last Admin: 05/14/20 10:34 Dose: 1 drops Documented by: Cephalexin (Keflex) 250 mg PO Q24H [facility] Last Admin: 05/16/20 11:56 Dose: 250 mg Documented by: Dorzolamide/Timolol (Cosopt) 1 drops EACHEYE BID [facility] Last Admin: 05/16/20 08:49 Dose: 1 drops Documented by: Sodium Chloride (Normal Saline 0.9%) 1,000 mls @ 60 mls/hr IV .[id number] [facility] Stop: 05/17/20 07:39 Insulin Human Regular (Humulin R) 1 - 5 unit SUBQ Q6HR [facility]; Protocol Last Admin: 05/16/20 11:58 Dose: 4 unit Documented by: Latanoprost (Xalatan Ophth Drops) 1 drops EACHEYE QPM [facility] Last Admin: 05/15/20 20:55 Dose: 1 drops Documented by: Metoprolol Tartrate (Lopressor) 25 mg PO BID [facility] Last Admin: 05/16/20 08:41 Dose: 25 mg Documented by: Mineral Oil (Cavilon) 1 applic TOP BID PRN PRN Reason: reddened periarea Last Admin: 05/16/20 00:00 Dose: 1 applic Documented by: Mirtazapine (Remeron) 15 mg PO QPM [facility] Last Admin: 05/15/20 20:49 Dose: 15 mg Documented by: Multi-Ingredient Ointment (Zinc Oxide) 1 applic TOP PRN PRN PRN Reason: Skin Care Last Admin: 05/16/20 00:00 Dose: 1 applic Documented by: Ondansetron HCl (Zofran Inj) 4 mg IVP Q6HR PRN PRN Reason: Nausea / Vomiting Last Admin: 05/16/20 10:39 Dose: 4 mg Documented by: Oxycodone HCl (Roxicodone) 5 mg PO Q4HR PRN PRN Reason: PAIN Last Admin: 05/16/20 07:41 Dose: 5 mg Documented by: Pantoprazole Sodium (Protonix) 40 mg PO QDAC [facility] Last Admin: 05/16/20 06:48 Dose: 40 mg Documented by: Potassium Chloride () 20 meq PO DAILY [facility] Last Admin: 05/16/20 11:46 Dose: Not Given Documented by: Prochlorperazine Edisylate (Compazine Inj) 10 mg IVP Q6HR PRN PRN Reason: Nausea / Vomiting Last Admin: 05/15/20 15:20 Dose: 10 mg Documented by: Sodium Chloride (Normal Saline Flush 0.9%) 10 ml IVP PRN PRN PRN Reason: NEEDED PER PROVIDER ORDERS Last Admin: 05/15/20 19:39 Dose: 10 ml Documented by: Sodium Chloride (Normal Saline Flush 0.9%) 10 ml IVP 0100,0900,1700 [facility] Last Admin: 05/16/20 11:46 Dose: Not Given Documented by: Latanoprost 0.005% Ophth Drops [Xalatan] 1 drops OPTH QPM 03/06/13 Lisinopril [Prinivil] 5 mg PO DAILY 03/06/13 Cholecalciferol (Vitamin D3) [Vitamin D3] 2,000 unit PO DAILY 05/08/20 Dorzolamide HCl/Timolol Maleat [Dorzolamide-Timolol Eye Drops] 1 drops EACHEYE BID 05/08/20 Ibuprofen [Ibu-200] 200 mg PO Q6H PRN 05/08/20 Loperamide [Imodium] 2 mg PO PRN PRN 05/08/20 Metoprolol Tartrate 25 mg ORAL BID 05/08/20 Octreotide Acetate,Mi-Spheres [Sandostatin Lar Depot] 30 mg IM ONCE 05/08/20 Allergies/Adverse Reactions: Allergies Allergy/AdvReac Type Severity Reaction Status Date / Time azithromycin [From Zithromax] Allergy Intermediate Emesis Verified 05/08/20 07:20 Sulfa (Sulfonamide AdvReac Severe Hives Verified 05/08/20 07:20 Antibiotics) Anes History & Medical History - Anesthetic History Anesthesia Complications: reports: No previous complications - Medical History Cardiovascular: reports: Hypertension Pulmonary: reports: None Gastrointestinal: reports: None Urinary: reports: Incontinence Neuro: reports: None Musculoskeletal: reports: Other Endocrine/Autoimmune: reports: Other (carcinoid, elevated glucose) Blood Disorders: reports: None Skin: reports: None Smoking Status: Never smoker Other Past Medical History: Pt. reports being independent w/all activity; drives to her appointments in [place]. - Surgical History General: Cholecystectomy, Appendectomy Eyes Ears Nose Throat (EENT): Tonsil/Adenoidectomy Gynecologic: Hysterectomy Exam General: Alert Dental: WNL Mouth Opening: Greater than 4 Fingerbreadths Neck Mobility: Normal Mallampati classification: II Respiratory: Lungs clear Cardiovascular: Regular rate Mental/Cognitive Status: Alert/Oriented X3 Plan Anesthesia Type: MAC Consent for Procedure(s) Verified and Reviewed: Yes Code Status: Attempt Resuscitation ASA classification: 4-Incapacitating disease Is this case an emergency?: Yes
[2020-05-16] MEDS ORDERED: PROPOFOL 200 MG/20 ML VIAL IVP ONE (15:25)
[2020-05-16] MEDS ORDERED: KETAMINE 500 MG/10 ML VIAL IVP ONE (15:25)
[2020-05-16] MEDS ORDERED: MIDAZOLAM 2 MG/2 ML VIAL IVP ONE (15:25)
[2020-05-16] MEDS ORDERED: LACTATED RINGERS 1,000 ML IV ONE (15:38)
[2020-05-16] MEDS ORDERED: HYDROmorphone 0.5 MG/0.5 ML SYRINGE IVP PRN (16:09)
[2020-05-16] MEDS ORDERED: ONDANSETRON 4 MG/2 ML VIAL IVP PRN (16:09)
[2020-05-16] MEDS ORDERED: MORPHINE 2 MG/ML CARPUJECT IVP PRN ×2 (16:09→19:57)
[2020-05-16] MEDS ORDERED: ATROPINE ABBOJECT 1 MG/10 ML SYRINGE IVP PRN (16:09)
[2020-05-16] MEDS ORDERED: NALOXONE 0.4 MG/ML VIAL IVP PRN (16:09)
[2020-05-16] MEDS ORDERED: ePHEDrine 50 MG/ML VIAL IVP PRN (16:09)
[2020-05-16] MEDS ORDERED: fentaNYL 100 MCG/2 ML VIAL IVP PRN (16:09)
--- NOTE | 2020-05-16 16:09 | ANESTHESIA POST OP EVALUATION ---
Anesthesia Post Eval - Post Anesthesia Eval Vitals: Last Vital Signs Temp 36.8 C 05/16/20 15:57 Pulse 108 H 05/16/20 15:57 Resp 12 05/16/20 15:57 BP 79/54 L 05/16/20 15:57 Pulse Ox 96 05/16/20 15:57 CV Function Including HR & BP: positive: Stable Pain Control: positive: Satisfactory Nausea & Vomiting: positive: Negative Mental Status: positive: Baseline Respiratory Status: Airway Patent Hydration Status: Satisfactory Anesthesia Complications: positive: None
[2020-05-16] MEDS ORDERED: LACTATED RINGERS 1,000 ML IV SCH (17:00)
--- NOTE | 2020-05-16 17:42 | PROVIDER PROGRESS NOTE ---
Assessment/Plan - Problem List (1) Bloody feces Assessment/Plan: No further BRBPR. Yesterday the patient was nauseated and the general residential solar sales consultant canceled the order for Suprep for colonoscopy. She was taken for only an EGD today which showed: Hiatal hernia with a lot of bilious content and there was bile in her pharynx. The impression was that she could be aspirating. There was food seen in the entire stomach despite being n.p.o. for approximately 10 hours. He suspected gastroparesis. The scope would not go beyond the second portion of the duodenum due to external compression, probably from the carcinoid mass. The esophageal mucosa was erythematous and had pseudopolyps which were biopsied and clips were placed. Dr. Groves will, and discussed in detail with the family these findings and the fact that the patient should probably not be feeding orally any further. He did place an NG tube and will consider doing a Gastrografin imaging test tomorrow to determine obstruction if any in the small intestine. Potentially he could do a feeding tube and a colonoscopy tomorrow. (2) Acute kidney injury Assessment/Plan: There had been worsening of the creatinine 2.1 yesterday. She was restarted on IV fluids especially knowing she would be n.p.o. for this procedure. Today the creatinine improved once again to 1.8. The general surgeon's impression is that she is in adequately hydrating herself because of gastroparesis and bowel obstruction. Continue very gentle, slow rate of IV hydration. (3) Labile hypertension Assessment/Plan: Her blood pressure continues to be "soft". We have not had needed to resume any PRN iv hydralazine or oral amlodipine since early this admission when she was hypertensive at 199 systolic. (4) Acute urinary retention Assessment/Plan: She required G[place]ay placement yesterday. (5) Leukocytosis Assessment/Plan: Best WBC was 13 2 days ago which increased to 16 yesterday and even further up to 18 today. With the results of the EGD above, she could be having chronic slow aspiration and chemical pneumonia or aspiration pneumonia. We will obtain chest x-ray and treat if needed for aspiration pneumonia. (6) Infection of intravenous catheter Qualifiers: Encounter type: initial encounter Qualified Code(s): T82.7XXA - Infection and inflammatory reaction due to other cardiac and vascular devices, implants and grafts, initial encounter Assessment/Plan: RN on Keflex, the dose was adjusted by pharmacy for her abnormal GFR. Today is day #5 of 7. (7) Metastatic carcinoid tumor Assessment/Plan: The plan was to have her follow-up with her oncologist to discuss potential treatment options on May 21, and if he does not want to proceed with treatment then she will likely consider Hospice. Her oncologist is Dr. Pascual at [facility]. But the May 21 visit is supposed to be with a new Oncologist who has new treatment options. The daughter requested that I reach out to Dr. Pascual to discuss her current clinical inpatient status and determine if a visit to [facility] is absolutely necessary. I will try to reach [facility] if appropriate, unless she chooses to start with hospice. (8) Early satiety Assessment/Plan: She was getting a pured diet and was started on Remeron. Now we know that she has possible gastroparesis plus partial bowel obstruction from an external mass pressing on the duodenum. She came from the EGD with an NG tube in place for decompression and Dr. Groves will discuss further management with the family and the pt. (9) Moderate malnutrition Assessment/Plan: She has muscle wasting and loss of subcutaneous fat, has had nutritional intake of less than 50% of recommended for a week and weight loss of 7% in the past month. Her BMI is only 17.7. This is due to her poor appetite and early satiety from the carcinoid tumor impacting appetite and digestion. Dietary is involved. (10) Anemia Qualifiers: Anemia type: iron deficiency Assessment/Plan: B12 and folate levels are normal. Her iron stores are very low. We will begin oral iron once the endoscopies and work-up for problem #1 are complete. Follow H/H daily. Would plan a transfusion if hemoglobin under 8 with symptoms or if under 7, unless she changes direction and chooses comfort care and hospice. (11) Type 2 diabetes mellitus Assessment/Plan: This is a new diagnosis this admission. Her A1c is 6.8%. We did not start her on any pharmacologic agents or a carb controlled diet given her poor appetite overall. Keep her on sliding scale insulin coverage. (12) Weakness Assessment/Plan: She is able to be up in a chair and does range of motion and resistance exercises. The plan is to be discharged to her daughter's house in [place] and home health PT will be ordered, unless there is a change in direction and she requests hospice. (13) Metabolic alkalosis Assessment/Plan: Resolved (14) Hyponatremia Assessment/Plan: Resolved - Current Meds Current Meds: Current Medications Generic Name Dose Route Start Last Admin Trade Name Freq PRN Reason Stop Dose Admin Acetaminophen 650 mg 05/08/20 08:51 05/16/20 11:56 Tylenol PO 650 mg Q4HR PRN Administration Pain 1 to 4 Carboxymethylcellulose 1 drops 05/08/20 18:16 05/14/20 10:34 Refresh 1% Ophth Drops EACHEYE 1 drops PRN PRN Administration Dry Eye Cephalexin 250 mg 05/14/20 12:30 05/16/20 11:56 Keflex PO 250 mg Q24H LIT Administration Dorzolamide/Timolol 1 drops 05/09/20 09:00 05/16/20 08:49 Cosopt EACHEYE 1 drops BID LIT Administration Insulin Human Regular 1 - 5 unit 05/16/20 09:00 05/16/20 11:58 Humulin R SUBQ 4 unit Q6HR LIT Administration Protocol Latanoprost 1 drops 05/09/20 21:00 05/15/20 20:55 Xalatan Ophth Drops EACHEYE 1 drops QPM LIT Administration Metoprolol Tartrate 25 mg 05/14/20 10:32 05/16/20 08:41 Lopressor PO 25 mg BID LIT Administration Mineral Oil 1 applic 05/11/20 16:16 05/16/20 00:00 Cavilon TOP 1 applic BID PRN Administration reddened periarea Mirtazapine 15 mg 05/10/20 21:00 05/15/20 20:49 Remeron PO 15 mg QPM LIT Administration Multi-Ingredient Ointment 1 applic 05/12/20 16:00 05/16/20 00:00 Zinc Oxide TOP 1 applic PRN PRN Administration Skin Care Ondansetron HCl 4 mg 05/08/20 08:51 05/16/20 10:39 Zofran Inj IVP 4 mg Q6HR PRN Administration Nausea / Vomiting Oxycodone HCl 5 mg 05/11/20 00:19 05/16/20 07:41 Roxicodone PO 5 mg Q4HR PRN Administration PAIN Pantoprazole Sodium 40 mg 05/09/20 07:00 05/16/20 06:48 Protonix PO 40 mg QDAC LIT Administration Potassium Chloride 20 meq 05/12/20 09:00 05/16/20 11:46 PO Not Given DAILY LTI Prochlorperazine Edisylate 10 mg 05/08/20 19:33 05/15/20 15:20 Compazine Inj IVP 10 mg Q6HR PRN Administration Nausea / Vomiting Sodium Chloride 10 ml 05/08/20 08:51 05/15/20 19:39 Normal Saline Flush 0.9% IVP 10 ml PRN PRN Administration NEEDED PER PROVIDER ORDERS Sodium Chloride 10 ml 05/08/20 09:00 05/16/20 11:46 Normal Saline Flush 0.9% IVP Not Given 0100,0900,1700 LIT - Lab Result Fish Bone Diagrams: 05/16/20 05:15 05/16/20 05:15 - Additional Planning My Orders: My Active Orders 05/16/20 00:01 DIET [NPO except Meds at Midnight] [DIET] 05/16/20 09:00 Insulin Regular Human [Humulin R] 1 - 5 unit SUBQ Q6HR 05/16/20 15:00 Sodium Chloride 0.9% [Normal Saline 0.9%] 1,000 ml IV 60 mls/hr 05/17/20 05:00 BMP - BASIC METABOLIC PANEL [CHEM] DAILYLAB CBC - COMP BLD CT W/AUTO DIFF [HEME] DAILYLAB Subjective - Subjective Patient Reports: Other (sleeping after sedation given for EGD) Objective Vital Signs: Vital Signs - 24 hr 05/15/20 05/15/20 05/16/20 20:48 20:50 00:10 Temperature 36.7 C 37.0 C Heart Rate Heart Rate [ 96 91 Brachial] Respiratory 17 17 Rate Blood Pressure 126/59 L Blood Pressure 125/86 H 116/54 L [Left Brachial artery] Blood Pressure [Right Brachial artery] O2 Saturation 94 92 05/16/20 05/16/20 05/16/20 05:00 07:25 08:41 Temperature 37.1 C 37.1 C Heart Rate Heart Rate [ 93 82 Brachial] Respiratory 18 20 Rate Blood Pressure 119/64 Blood Pressure 119/64 [Left Brachial artery] Blood Pressure 118/56 L [Right Brachial artery] O2 Saturation 93 92 05/16/20 05/16/20 05/16/20 12:38 15:57 16:00 Temperature 37.0 C 36.8 C 36.8 C Heart Rate 108 H 109 H Heart Rate [ 90 Brachial] Respiratory 16 12 12 Rate Blood Pressure 79/54 L 85/50 L Blood Pressure [Left Brachial artery] Blood Pressure 99/59 L [Right Brachial artery] O2 Saturation 93 96 96 05/16/20 05/16/20 05/16/20 16:05 16:10 16:15 Temperature 36.8 C Heart Rate 105 H 106 H 110 H Heart Rate [ Brachial] Respiratory 12 14 16 Rate Blood Pressure 88/53 L 88/53 L 84/50 L Blood Pressure [Left Brachial artery] Blood Pressure [Right Brachial artery] O2 Saturation 98 98 98 05/16/20 05/16/20 05/16/20 16:20 16:25 16:30 Temperature 36.6 C 36.5 C 36.6 C Heart Rate 95 92 108 H Heart Rate [ Brachial] Respiratory 12 20 13 Rate Blood Pressure 92/50 L 89/49 L 98/52 L Blood Pressure [Left Brachial artery] Blood Pressure [Right Brachial artery] O2 Saturation 97 98 96 05/16/20 05/16/20 05/16/20 16:35 16:40 16:45 Temperature 36.6 C 36.6 C 36.6 C Heart Rate 106 H 102 H 99 Heart Rate [ Brachial] Respiratory 13 13 12 Rate Blood Pressure 82/49 L 94/52 L 104/50 L Blood Pressure [Left Brachial artery] Blood Pressure [Right Brachial artery] O2 Saturation 96 95 100 05/16/20 16:50 Temperature 36.2 C L Heart Rate 83 Heart Rate [ Brachial] Respiratory 13 Rate Blood Pressure 99/49 L Blood Pressure [Left Brachial artery] Blood Pressure [Right Brachial artery] O2 Saturation 95 Oxygen O2 Source Room air I&O (Last 24 Hrs): Intake and Output Totals x24h 05/14/20 05/15/20 05/16/20 23:59 23:59 23:59 Intake Total 640 1320 1000 Output Total 1100 1275 500 Balance -460 45 500 General: Other (Sleepy) HEENT: Mucous membr. moist/pink, Other (Poor dentition) Neck: Supple Neuro: Other (sedated) Cardiovascular: Regular rate Respiratory: No respiratory distress Abdomen: Soft Extremities: No edema - Results Results: Laboratory Results WBC 18.1 x10^3/uL (4.8-10.8) H 05/16/20 05:15 RBC 3.35 10^6/uL (4.20-5.40) L 05/16/20 05:15 Hgb 8.8 g/dL (12.0-16.0) L 05/16/20 05:15 Hct 29.2 % (37.0-47.0) L 05/16/20 05:15 MCV 87.2 fL (81.0-99.0) 05/16/20 05:15 MCH 26.3 pg (27.0-31.0) L 05/16/20 05:15 MCHC 30.1 g/dL (32.0-36.0) L 05/16/20 05:15 RDW 15.8 % (12.0-15.0) H 05/16/20 05:15 Plt Count 257 10^3/uL (130-450) 05/16/20 05:15 MPV 11.4 fL (7.9-10.8) H 05/16/20 05:15 Neut # (Auto) Not Reportable 05/16/20 05:15 Lymph # (Auto) Not Reportable 05/16/20 05:15 [place] # (Auto) Not Reportable 05/16/20 05:15 Eos # (Auto) Not Reportable 05/16/20 05:15 Baso # (Auto) Not Reportable 05/16/20 05:15 Absolute Nucleated RBC Not Reportable 05/16/20 05:15 Total Counted 100 05/16/20 05:15 Band Neuts % (Manual) 21 % (0-10) H 05/16/20 05:15 Abnorm Lymph % (Manual) 0 % 05/16/20 05:15 Nucleated RBC % Not Reportable 05/16/20 05:15 Neutrophils # (Manual) 17.4 10^3/uL (1.5-6.6) H 05/16/20 05:15 Lymphocytes # (Manual) 0.2 10^3/uL (1.5-3.5) L 05/16/20 05:15 Monocytes # (Manual) 0.5 10^3/uL (0.0-1.0) 05/16/20 05:15 Eosinophils # (Manual) 0.0 10^3/uL (0-0.7) 05/16/20 05:15 Basophils # (Manual) 0.0 10^3/uL (0-0.1) 05/16/20 05:15 Differential Comment MANUAL DIFFERENTIAL 05/16/20 05:15 Manual Slide Review Indicated 05/14/20 04:47 WBC Morphology NORMAL APPEARANCE (NORMAL) 05/13/20 05:22 Platelet Estimate NORMAL (130-450,000) (NORMAL) 05/16/20 05:15 Platelet Morphology NORMAL APPEARANCE (NORMAL) 05/14/20 04:47 RBC Morph Micro Appear NORMAL APPEARANCE (NORMAL) 05/16/20 05:15 VBG pH 7.498 (7.31-7.41) H 05/08/20 09:15 VBG pCO2 48.3 mmHg (41-51) 05/08/20 09:15 VBG pO2 25.0 mmHg (25-47) 05/08/20 09:15 VBG HCO3 36.7 mmol/L (23-28) H 05/08/20 09:15 VBG Total CO2 38.1 mmol/L (24-29) H 05/08/20 09:15 VBG O2 Saturation 46.7 % (60-80) L 05/08/20 09:15 VBG Base Excess 11.9 mmol/L (-2 - +2) H 05/08/20 09:15 Sodium 138 mmol/L (135-145) 05/16/20 05:15 Potassium 3.5 mmol/L (3.5-5.0) 05/16/20 05:15 Chloride 105 mmol/L (101-111) 05/16/20 05:15 Carbon Dioxide 23 mmol/L (21-32) 05/16/20 05:15 Anion Gap 10.0 (6-13) 05/16/20 05:15 BUN 66 mg/dL (6-20) H 05/16/20 05:15 Creatinine 1.8 mg/dL (0.4-1.0) H 05/16/20 05:15 Estimated GFR (MDRD) 27 (>89) L 05/16/20 05:15 Glucose 350 mg/dL (70-100) H 05/16/20 05:15 Estimat Average Glucose 148 mg/dL (70-100) H 05/09/20 05:26 Hemoglobin A1c % 6.8 % (4.27-6.07) H 05/09/20 05:26 Calcium 7.7 mg/dL (8.5-10.3) L 05/16/20 05:15 Phosphorus 3.5 mg/dL (2.5-4.6) 05/14/20 04:47 Magnesium 2.0 mg/dL (1.7-2.8) 05/14/20 04:47 Iron 10 ug/dL (28-170) L 05/15/20 05:23 TIBC 146 ug/dL (250-450) L 05/15/20 05:23 % Saturation 7 % (20-50) L 05/15/20 05:23 Transferrin 104 mg/dL (192-382) L 05/15/20 05:23 Total Bilirubin 0.5 mg/dL (0.2-1.0) 05/15/20 05:23 Direct Bilirubin 0.2 mg/dL (0.1-0.5) 05/15/20 05:23 AST 45 IU/L (10-42) H 05/15/20 05:23 ALT 48 IU/L (10-60) 05/15/20 05:23 Alkaline Phosphatase 240 IU/L (42-121) H 05/15/20 05:23 Total Protein 5.1 g/dL (6.7-8.2) L 05/15/20 05:23 Albumin 2.0 g/dL (3.2-5.5) L 05/15/20 05:23 Globulin 3.1 g/dL (2.1-4.2) 05/15/20 05:23 Albumin/Globulin Ratio 0.9 (1.0-2.2) L 05/08/20 06:40 Lipase 22 U/L (22-51) 05/08/20 06:40 Vitamin B12 233 pg/mL (180-914) 05/15/20 05:23 Folate 9.73 ng/mL (5.90 - >24.8) 05/15/20 05:23 Urine Color YELLOW 05/13/20 18:35 Urine Clarity HAZY (CLEAR) 05/13/20 18:35 Urine pH 5.0 PH (5.0-7.5) 05/13/20 18:35 Ur Specific [place] 1.020 (1.002-1.030) 05/13/20 18:35 Urine Protein 30 mg/dL (NEGATIVE) H 05/13/20 18:35 Urine Glucose (UA) NEGATIVE mg/dL (NEGATIVE) 05/13/20 18:35 Urine Ketones NEGATIVE mg/dL (NEGATIVE) 05/13/20 18:35 Urine Occult Blood NEGATIVE (NEGATIVE) 05/13/20 18:35 Urine Nitrite NEGATIVE (NEGATIVE) 05/13/20 18:35 Urine Bilirubin NEGATIVE (NEGATIVE) 05/13/20 18:35 Urine Urobilinogen 0.2 (NORMAL) E.U./dL (NORMAL) 05/13/20 18:35 Ur Leukocyte Esterase NEGATIVE (NEGATIVE) 05/13/20 18:35 Urine RBC None Seen /HPF (0-5) 05/13/20 18:35 Urine WBC 0-3 /HPF (0-5) 05/13/20 18:35 Ur Squamous Epith Cells NONE SEEN (<= Few) 05/13/20 18:35 Amorphous Sediment Few /LPF 05/13/20 18:35 Urine Bacteria None Seen /HPF (None Seen) 05/13/20 18:35 Ur Microscopic Review INDICATED 05/11/20 08:45 Urine Culture Comments NOT INDICATED 05/13/20 18:35 Urine Sodium < 12.0 mmol/L 05/13/20 18:35 Stl C. diff Tox B Gene NEGATIVE (NEGATIVE) 05/11/20 10:47
--- NOTE | 2020-05-16 18:28 | PROVIDER PROGRESS NOTE ---
Progress Note Patient status post upper endoscopy. Longstanding history of metastatic carcinoid. Bulky disease noted on CAT scan surrounding the central mesentery. Initial CAT scan with limited passage of enteric contents. Patient with suspected aspiration and distention with chronic obstruction clinically. Findings on upper endoscopy as follows: 1. Extensive bilious retained contents all the way through to the pharynx, esophagus, and large hiatal hernia. 2. Unable to pass beyond the second portion of the duodenum secondary to external obstruction. 3. Extensive reflux esophagitis and granular appearance biopsied with significant bleeding post clipped to prevent further blood loss and for hemostasis. 4. NG tube placed at the time of procedure. Given these findings together with the patient's historic diagnoses and recent imaging I do not believe that there is anything beneficial that further interventions and/or diagnostics would offer the patient long-term. Extensive discussion was had with the patient as well as the family that at this point time given how debilitated the patient is and how obviously intolerant she will be of any attempted further chemotherapeutic and/or radio therapies, her intolerance of food, her and inability to maintain her fluid status and nutrition, amongst others, she would be best served with palliative intent. We could consider a PEG tube but I think and even in the setting of another intervention would carry with it a risk. Discussed with hospitalist service after extensive discussion with family and patient and would recommend hospice/palliative services to discuss with the patient goals of treatment and care. Approximately an hour and a half was spent discussing with the family and the patient these findings and concerns.
[2020-05-16 18:38] VITALS: BP 109/58
--- NOTE | 2020-05-16 18:47 | XRAY Report ---
PROCEDURE: Chest for Line Placement INDICATIONS: line placement TECHNIQUE: One view of the chest was acquired. COMPARISON: 05/09/2020 FINDINGS: Surgical changes and devices: Enteric tube with the tip projecting in the stomach. Small bilateral pleural effusion with adjacent atelectasis. Retrocardiac consolidation. Diffuse bilat eral groundglass and ill-defined opacities probably findings appear new since the prior study Mediastinum: Mediastinal contours appear normal. Heart size is normal. Bones and chest wall: No suspicious bony lesions. Overlying soft tissues appear unremarkable. IMPRESSION: Bilateral small pleural effusions, with superimposed dense retrocardiac consolidation in the left baiele g base. Underlying pneumonia cannot be excluded Bilateral diffuse groundglass opacities raise the possibility of pulmonary edema. All of these findings appear new or progressed since 03/08/2020 Reviewed by: Anish De La Fuente MD on 05/16/2020 6:46 PM PDT Approved by: Anish De La Fuente MD on 05/16/2020 6:46 PM PDT Station ID: [id number]
[2020-05-16] MEDS ORDERED: DEXTROSE 5%-0.9% NACL 1,000 ML IV SCH (19:00)
--- NOTE | 2020-05-16 19:46 | XRAY Report ---
PROCEDURE: Abdomen 1 View X-Ray INDICATIONS: sbo follow up, ngt placement TECHNIQUE: 1 view of the abdomen were acquired. COMPARISON: None. FINDINGS: Surgical changes and devices: Enteric tube is seen with the tip projecting in the stomach.. Partially visualized dilated left small bowel loops. Diffuse ill-defined and patchy consolidative dony ateral opacities in both lung bases. Small bilateral pleural effusions Soft tissues: No masses; visualized solid organ contours appear normal in size. No suspicious abdom inal calcifications. Bones: No suspicious bony abnormalities. IMPRESSION: Enteric tube with the tip projecting in the stomach. Reviewed by: Anish De La Fuente MD on 05/16/2020 7:45 PM PDT Approved by: Anish De La Fuente MD on 05/16/2020 7:45 PM PDT Station ID: [id number]
[2020-05-16] MEDS ORDERED: LORazepam 2 MG/ML VIAL IVP PRN (19:57)
[2020-05-16] MEDS ORDERED: PIPERACILLIN/TAZOBACTAM 3.375 GM in SODIUM CHLORIDE 0.9% MINIBAG 100 ML IV ONE (20:00)
--- NOTE | 2020-05-16 21:17 | PROVIDER PROGRESS NOTE ---
Talent Engineer Note - Talent Engineer Note Talent Engineer Note: Called to patient's bedside because the patient was unresponsive. Patient was nonresponsive to verbal or tactile stimuli. Pupils were fixed dilated and unresponsive to light. Corneal reflex was absent. There were no breath or heart sounds on auscultation. Carotid or radial pulses were absent bilaterally. Patient was pronounced at 20 1:05 PM on May 16, 2020. Family was at bedside.
--- NOTE | 2020-05-16 21:18 | DISCHARGE SUMMARY ---
"Discharge Summary Admit Date: 05/08/20 Discharge Date: 05/16/20 Discharging Provider: Sharon Thomas Discharge Disposition: 20 - DIAGNOSES Admission Diagnoses: 1 Metabolic alkalosis 2 hypokalemia 3 metastatic carcinoid tumor 4 hyponatremia 5 early satiety 6 hypertension Discharge Diagnoses with Status of Each Condition: 1 metastatic carcinoid tumor. Patient 2 Aspiration Pneumonia. Patient 3 Acute kidney injury. Patient 4 Hematochezia. Patient 5 Moderate malnutrition. Patient 6 Labile hypertension. Patient - HPI History of Present Illness: Per Dr. Amado's H&P: This is a very pleasant 85-year-old female with a past medical history significant for metastatic carcinoid tumor, hypertension, glaucoma who presents today complaining of lack of sleep and poor appetite over the past few days. She states she was diagnosed with carcinoid tumor about 5 years ago and has been on monthly octreotide since then. She saw her oncologist yesterday at the [facility] due to her lack of appetite and sleep. She received her monthly dose of octreotide yesterday. She states they were going to work-up her symptoms with a CT and a likely referral to GI. She states overnight her symptoms progressed and so she sought medical attention today. She states that the past few days she has not slept well and she has early satiety after just a few bites. She states she ate half a bowl of soup yesterday and she became quite full. She reports occasional nausea but no vomiting. She denies any abdominal pain. She states she normally has diarrhea from a carcinoid tumor but she has had intermittent constipation over the past few days. Her last bowel movement was yesterday. She is passing gas. She reports no abdominal distention. She reports no fevers, chills, chest pain, dyspnea. She does report feeling thirsty and she feels like she is dehydrated. She also has early satiety from drinking liquids. She reports no dizziness or lightheadedness. In the emergency department, she is found to be afebrile with temperature of 36.1 C. Her heart rate was 59. Her blood pressure was 198/87. She was not tachypneic and saturating well on room air. Labs were significant for a white count of 15 with a left shift. Her sodium was 131, potassium 2.1, chloride 80, bicarbonate 39. He underwent a CT of the abdomen pelvis with oral contrast she reported an allergy to IV contrast. The CT showed the metastatic carcinoid tumor. These findings were discussed with her oncologist by the emergency department physician who recommended admission to optimize her electrolytes and that they will follow-up with her in clinic and likely refer her to GI for possible gastric outlet obstruction as she may need stenting. Given the above findings, medicine was consulted for admission. I did discuss goals of care the patient and she would like to be a DNR. - CONSULTS | PROCEDURES Consultations: General surgery consult on May 16, 2020 Procedures: EGD showed 1 hiatal hernia with extensive bilious content, no bleeding 2 food residue in the entire examined stomach 3 duodenum with no ability to go beyond the second portion of the duodenum due to external compression 4 diffuse abnormal mucosa was found in the distal esophagus and entire esophagus . The mucosa was erythematous and had pseudopolyps. Biopsy was performed. To prevent further bleeding a Hemoclip was placed on the side. 5 likely extensive external compression from tumor. - HOSPITAL COURSE Hospital Course: Patient had significant and increasing weakness over the days of her hospital stay. Her oral intake steadily decreased. She also had daily diarrhea which was likely due to her carcinoid tumor. She developed acute kidney injury which was likely prerenal from dehydration due to diarrhea. She received IV hydration. On May 14, 2020, patient had 3 episodes of bloody bowel movement overnight. However there was no significant drop in her hemoglobin which was about 9. General surgery was consulted and the patient was started on Suprep in anticipation of an EGD and colonoscopy on May 16, 2020. However overnight on May 15, 2020 patient's abdomen was significantly distended and tympanic. Consequently the Suprep was discontinued with a planned goal of only doing an EGD. The patient's white blood cell count steadily increased from 13.2 on May 14, to 18.1 on May 16. The EGD also found billous substance in the pharynx which was highly suggestive of aspiration. Consequently the patient was placed on Zosyn. The EGD report is under procedure as below. The general surgeon offered to place a PEG tube for palliation however patient and family declined. Patient opted for comfort measures at this point. Shortly after this decision morphine and Ativan were ordered PRN for pain, air hunger and anxiety. The patient's clinical condition quickly deteriorated shortly after this. I was called to patient's bedside because the patient was unresponsive. She was non-responsive to verbal or tactile stimuli. Pupils were fixed dilated and unresponsive to light. Corneal reflex was absent. There were no breath or heart sounds on auscultation. Carotid or radial pulses were absent bilaterally. Patient was pronounced at 21:05 PM on May 16, 2020. Family was at bedside. - ALLERGIES Allergies/Adverse Reactions: Allergies Allergy/AdvReac Type Severity Reaction Status Date / Time azithromycin [From Zithromax] Allergy Intermediate Emesis Verified 05/08/20 07:20 Sulfa (Sulfonamide AdvReac Severe Hives Verified 05/08/20 07:20 Antibiotics) - MEDICATIONS Home Medications: Ambulatory Orders Medication Instructions Recorded Confirmed Latanoprost 0.005% Ophth Drops 1 drops OPTH QPM 03/06/13 05/08/20 [Xalatan] Lisinopril [Prinivil] 5 mg PO DAILY 03/06/13 05/08/20 Cholecalciferol (Vitamin D3) 2,000 unit PO DAILY 05/08/20 05/08/20 [Vitamin D3] Dorzolamide HCl/Timolol Maleat 1 drops EACHEYE BID 05/08/20 05/08/20 [Dorzolamide-Timolol Eye Drops] Ibuprofen [Ibu-200] 200 mg PO Q6H PRN 05/08/20 05/08/20 Loperamide [Imodium] 2 mg PO PRN PRN 05/08/20 05/08/20 Metoprolol Tartrate 25 mg ORAL BID 05/08/20 05/08/20 Octreotide Acetate,Mi-Spheres 30 mg IM ONCE 05/08/20 05/08/20 [Sandostatin [place]] - PHYSICAL EXAM AT DISCHARGE Physical Exam Other/Comments: Patient - LABS Result Diagrams: 05/16/20 05:15 05/16/20 05:15 - TIME SPENT Time Spent in Discharge (Minutes): 31"
--- NOTE | 2020-05-16 21:22 | Discharge Plan ---
Discharge Plan Problem Reviewed?: Yes Disposition: 20 No Smoking: If you smoke, Please STOP! Call for help. Follow-up with: Lovely Antonio DO [Primary Care Provider] -
[2020-05-17] MEDS ORDERED: PIPERACILLIN/TAZOBACTAM 3.375 GM in SODIUM CHLORIDE 0.9% MINIBAG 100 ML IV SCH (06:00)
== END 2020-05-16 21:05 | disposition expired | DRG 640 ==
LOC: EDUNIT# → ED 06:21 → MS2 08:51 → OBSVTOIN 05-09 12:17
PROVIDERS: ADMIT Internal Medicine; ATTEND Internal Medicine
PROC: 0DB58ZX Excision of Esophagus, Via Natural or Artificial Opening Endoscopic, Diagnostic (ICD-10-PCS; principal; 2020-05-16 14:30)
DX: E87.3 Alkalosis (principal); J69.0 Pneumonitis due to inhalation of food and vomit; N17.9 Acute kidney failure, unspecified; K92.1 Melena; E44.0 Moderate protein-calorie malnutrition; R68.81 Early satiety; Z68.1 Body mass index [BMI] 19.9 or less, adult; K31.5 Obstruction of duodenum; C7A.00 Malignant carcinoid tumor of unspecified site; Z72.820 Sleep deprivation; T82.7XXA Infection and inflammatory reaction due to other cardiac and vascular devices, implants and grafts, initial encounter; E87.6 Hypokalemia; Y84.8 Other medical procedures as the cause of abnormal reaction of the patient, or of later complication, without mention of misadventure at the time of the procedure; Y92.230 Patient room in hospital as the place of occurrence of the external cause; C7B.00 Secondary carcinoid tumors, unspecified site; E87.1 Hypo-osmolality and hyponatremia; E11.9 Type 2 diabetes mellitus without complications; E86.0 Dehydration; I10 Essential (primary) hypertension; R33.9 Retention of urine, unspecified; D63.0 Anemia in neoplastic disease; D50.9 Iron deficiency anemia, unspecified; K21.0 Gastro-esophageal reflux disease with esophagitis; K44.9 Diaphragmatic hernia without obstruction or gangrene; K31.84 Gastroparesis; R19.7 Diarrhea, unspecified; H40.9 Unspecified glaucoma; R32 Unspecified urinary incontinence; Z74.09 Other reduced mobility; Z66 Do not resuscitate; Z51.5 Encounter for palliative care; Z79.899 Other long term (current) drug therapy
CPT/HCPCS: 36415; 71045; 74018; 74176; 76770; 80048; 80053; 80076; 81001; 82607; 82746; 82803; 83036; 83540; 83690; 83735; 84100; 84300; 84466; 85014; 85018; 85025; 87040; 87071; 87086; 87493; 96361; 96365; 96366; 96367; 96368; 96372; 96375; 96376; 97110; 97161; 97530; 99284; 99285; A6250; A9270; G0378; J2060; J7040; J7120; P9047; 81003; 87070; 87205

== ENCOUNTER 2020-05-08 18:52 | Outpatient (CLI) | payer MEDICARE, OTHER | END 2020-05-08 18:53 | disposition critical access hospital (66) | LOC: EMS 18:52 | PROVIDERS: ATTEND Surgery | DX: M25.511 Pain in right shoulder (principal); R68.81 Early satiety; R03.0 Elevated blood-pressure reading, without diagnosis of hypertension; K59.00 Constipation, unspecified | CPT/HCPCS: A0425; A0429 ==